=== PATIENT | female | born 1950 | race Caucasian/White ===

== ENCOUNTER 2022-08-13 08:58 | Observation (INO) | payer OTHER ==
[2022-08-12 13:18] LABS: Absolute Lymphocytes (CBC) 1.8 K/uL (0.7-4.9); Hematocrit 34.4 % (36.0-45.0); Lymphocytes % 41.3 % (15.3-44.8); MCV 109.8 fL (80-100); RBC Red Blood Cell Count 3.13 M/uL (3.86-4.86)
[2022-08-12 13:23] LABS: Specific Gravity 1.014 (1.005-1.030); Urine Bacteria None Seen /HPF (<20); Urine Bilirubin NEGATIVE (Negative); Urine Blood Negative (Negative); Urine Clarity Clear (Clear); Urine Color Light-Yellow (Yellow); Urine Glucose NEGATIVE (Negative); Urine Protein NEGATIVE (Negative); Urine RBC <5 /HPF (None Seen); Urine Urobilinogen Normal (Normal); Urine pH 6.5 (5.0-7.0)
[2022-08-12 13:30] LABS: Protime INR 0.94
[2022-08-12 13:32] LABS: Potassium 3.7 mEq/L (3.5-5.1)
[2022-08-12 13:33] LABS: SARS-CoV-2 Antigen Rapid Res Negative (Negative)
[2022-08-12 16:33] LABS: White Blood Cell Scan OK (OK)
[2022-08-12 16:34] LABS: Blood Morphology Comment NOTED (NOT SEEN); Macrocytosis 1+; Platelet Estimate ADEQ
[2022-08-13] MEDS ORDERED: Ringers Lactate 1,000 ML IV ONE (09:19)
[2022-08-13] MEDS: CEFAZOLIN SODIUM 2 GM/VIAL ONE ×2 (10:09→11:20)
[2022-08-13] MEDS ORDERED: CEFAZOLIN SODIUM 1 GM/VIAL ONE (10:19)
[2022-08-13] MEDS ORDERED: LIDOCAINE 1% W/EPI 1:100,000 50 ML MDV ONE (10:19)
[2022-08-13] MEDS ORDERED: NA CHLORIDE 0.9% 100 ML ONE (10:19)
[2022-08-13] MEDS ORDERED: LIDOCAINE 2% MPF 5 ML VIAL ONE (10:32)
[2022-08-13] MEDS ORDERED: propofoL 200 MG/20 ML VIAL IV ONE (10:32)
[2022-08-13] MEDS ORDERED: FENTANYL CITR 100 MCG/2 ML ONE ×3 (10:32→15:22)
[2022-08-13] MEDS ORDERED: MIDAZOLAM HCL 2 MG/2 ML INJ ONE (10:33)
[2022-08-13] MEDS ORDERED: ROCURONIUM 50 MG/5 ML VIAL IV ONE (10:33)
[2022-08-13] MEDS ORDERED: ONDANSETRON 4 MG/2 ML VIAL ONE ×2 (10:33→14:38)
[2022-08-13] MEDS: VASOPRESSIN 20 UNIT/ML VIAL ONE ×2 (10:57→12:30)
[2022-08-13] MEDS ORDERED: GLYCOPYRROLATE 0.2 MG/ML SYR ONE (11:39)
--- NOTE | 2022-08-13 12:12 | EKG ---
Test Date: 2022-08-13 Test Time: 11:03:36 Mail Clerk: MARYCARMEN MEASUREMENT RESULTS: Intervals: Rate: 63 KS: 176 QRSD: 80 QT: 438 QTc: 448 [place]: P: 53 KS: 176 QRS: 2 T: 28 INTERPRETIVE STATEMENTS: Normal sinus rhythm Normal ECG Compared to ECG 09/14/2014 15:46:26 Left ventricular hypertrophy no longer present Electronically Signed On 08-13-22 12:12:24 CDT by Ariel Peterson
[2022-08-13] MEDS ORDERED: dexAMETHasone 10 MG/ML VIAL ONE (12:22)
[2022-08-13] MEDS: Ringers Lactate 1,000 ML IV ONE ×2 (12:32→13:03)
[2022-08-13] MEDS ORDERED: ACYCLOVIR 400 MG TABLET PO PRN (14:56)
[2022-08-13] MEDS ORDERED: HOME MED 1 EA UNK (Tizanidine Hcl [Zanaflex] 2 MG Capsule) PO PRN (14:56)
[2022-08-13] MEDS ORDERED: PROMETHAZINE INJ 25 MG/ML AMP IV PRN (15:00)
[2022-08-13] MEDS ORDERED: ACETAMINOPHEN 500 MG TAB PO PRN (15:00)
[2022-08-13] MEDS ORDERED: ONDANSETRON 4 MG/2 ML VIAL IV PRN (15:00)
[2022-08-13] MEDS ORDERED: DIFLUPREDNATE OPHTHALMIC 5 ML BOT EACH EYE SCH (15:00)
--- NOTE | 2022-08-13 15:16 | P.BOP ---
Preoperative diagnosis: recurrent POP, ROBER Postoperative diagnosis: stg3 anterior wall/enterocele/apical wall prolapse,perineal body defect,ROBER Primary procedure: B/L SSLFcolpopexy,Ant wall,enterocele repairs w/biolog graft Secondary procedure: perineal body defect repairw/ seperate incision, TO-MUS, cysto Rn Clinical Trials: Alyssa Brantley Estimated blood loss: 100 Specimen: none Findings: +1/+4/0/6.5/th/8/-3/-3/na,cysto neg Anesthesia: General Complications: None Implants: coloplast 12x8 graft fashioned to 9x6x5 Fluids & blood products: UO 500 Transferred to: Recovery Room Condition: Good
--- OUTSIDE RECORDS SUMMARY | 2022-08-13 15:28 | XMS REPORT | Continuity of Care Document ---
:1950 Author Organization [facility] t Address [address] [place] [address] [address] [place] [address] Care Team Providers Name Role Phone Alonso Carrillo MD Primary Care Physician [phone] Daxa CORMIER Attending Clinician Unavailable BIANCA RODRIGUEZ Attending Clinician Unavailable AMELIA ALMANZA Attending Clinician Unavailable ANDRIA SALINAS Attending Clinician Unavailable Andria Salinas Attending Clinician [phone] ANDRIA SALINAS Attending Clinician Unavailable Andria Salinas MD Attending Clinician HAILY BORDEN Attending Clinician Unavailable JONATHON WATERS Attending Clinician Unavailable Rod Willis DPM Attending Clinician Josie Wood MD Attending Clinician Haily Borden MD Attending Clinician Aiden Hartley MD Attending Clinician RATNA MAYFIELD Attending Clinician Unavailable Manuela Engle MD Attending Clinician BIANCA RODRIGUEZ Admitting Clinician Unavailable Payers Payer Name Policy Type Policy Number Effective Date Expiration Date S anabell [employer] MEDICARE [id number] 2016 HMO POS PPO 00:00:00 MEDICARE A B [id number] 2014 2019 00:00:00 00:00:00 MEDICARE PLAN PPO [id number] AETNA MEDICARE PART A [id number] 2016 \\T\\ B - MEDICARE 00:00:00 GENERIC PPO - [id number] GENERIC PAYOR Problems Condition Condition Condition Status Onset Resolution Last Treating Co mments Source Name Details Category Date Date Treatment Clinician Date 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 10/2019 xray c-spine Telangiect Telangiect Disease Recurre [facility] asia nce 7-23 College 00:00: of 00 Medicin e Telangiect Telangiect Disease Active B [facility] asias 7-23 College 00:00: of 00 Medicin e Leg cramps Leg cramps Disease Active Michelle [facility] 7-23 College 00:00: of 00 Medicin e Adverse Adverse Disease Active [facility] effect of effect of 4-10 [facility] statin statin 00:00: of 00 Medicin e Prediabete Prediabete Disease Active [facility] s s 4-08 College 00:00: of 00 Medicin e History of History of Disease Active Michelle vallecillo uveitis uveitis 4-06 College 00:00: of 00 Medicin e Estrogen Estrogen Disease Active [facility] deficiency deficiency 3-29 Co llege 00:00: of 00 Medicin e Closed Closed Disease Active [facility] displaced displaced 1-13 [facility] fracture fracture 00:00: Medica l of of 00 Center proximal proximal phalanx of phalanx of left left little little finger finger Broken Broken Disease Active [facility] ulna ulna 1-13 [facility] Broken Broken Disease Active [facility] wrist, wrist, 1-13 [facility] left, left, 00:00: Medical closed, closed, 00 Center initial initial encounter encounter Ulnar Ulnar Disease Active [facility] shaft shaft 1 [place] fracture fracture 00:00: of 00 Medicin e Wrist Wrist Disease Active [facility] fracture, fracture, 06-01 [facility] left left 00:00: of 00 Medicin e Wrist Wrist Disease Active [facility] fracture, fracture, 06-01 [facility] left left 00:00: of 00 Medicin e 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 7-28 [place] uncertain uncertain 00:00: of behavior behavior 00 Medici n of skin of skin e Temperatur Temperatur Disease Active [facility]yl[facility] e e 414 [place] intoleranc intoleranc 00:00: of e e 00 Medicin e Snoring Snoring Disease Active [facility] 4-14 [place] 00:00: of 00 Medicin e Bilateral Bilateral Disease Active [facility] senile senile 2-26 [place] cataracts cataracts 00:00: of 00 Medicin e Acute Acute Disease Active 2013-05 [facility] anterior anterior 124 Colleg e uveitis uveitis 00:00: of 00 Medicin e Chronic Chronic Disease Active 2013-05 [facility] anterior anterior 111 Colleg e uveitis of uveitis of 00:00: of both eyes both eyes 00 Medi mildais e Chronic Chronic Disease Active 2013-05 [facility] anterior anterior 1 Colleg e uveitis of uveitis of 00:00: of both eyes both eyes 00 Medi miladis e 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 3-18 Co llege 00:00: of 00 Medicin e Medication Medication Disease [facility] side side 3-07 College effects:Li effects:Li 00:00: of pitor,stat pitor,stat 00 Me dicin ins ins e HTN HTN Disease Active [facility] (hypertens (hypertens 07-28 Co llege ion) ion) 00:00: of 00 Medicin e 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 07-28 Co llege emia, high emia, high 00:00: of LDL LDL 00 Medicin e Medication Medication Disease Active [facility] side side 07-28 [place] effects:Li effects:Li 00:00: of pitor,stat pitor,stat 00 Me dicin ins ins e Osteoarthr Osteoarthr Disease Active [facility] itis itis 07-28 [place] 00:00: of 00 Medicin e Migraines Migraines Disease Active [facility] 07-28 [place] 00:00: of 00 Medicin e Allergic Allergic Disease Active [facility] rhinitis, rhinitis, 07-28 [facility] cause cause 00:00: of unspecifie unspecifie 00 Me dicin d d e Unspecifie Unspecifie Disease Active Michelle vallecillo d d 07-28 [place] constipati constipati 00:00: of on on 00 Medicin e Status Status Disease Active [facility] post post 07 [place] hysterecto hysterecto 00:00: of my my 00 Medicin e [id number] 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 [id number] Fibromyalg Problem Co mmon ia [facility] [id number] Primary Problem Common hypertensi Spirit on [facility] [id number] Behcet's Problem Comm on disease [facility] [id number] Female Problem Common bladder Spirit prolapse - [facility] [id number] Hyperchole Problem Com mon sterolemia [facility] [id number] Symptomati Problem Co mmon c spider Spirit varicose - [facility] vein [facility] Eczema Eczema Disease Active [facility] of Medicin e Allergies, Adverse Reactions, Alerts Allergy Allergy Status Severity Reaction(s) Onset Inactive Treating Comm ents Source Name Type Date Date Clinician Cheli Atkinson Active Other (See [facility] ty to Comments) 11 College adverse 00:00: of reaction 00 Medicin s to e drug Rodeo Propensi Active Anaphylaxis [facility] Nut ty to 08-14 College (Berthol adverse 00:00: of lefia reaction Medicin Excelsa) s to e Skin drug Test Meloxica Propensi Active [facility] m ty to 212 College adverse 00:00: of reaction 00 Medicin s to e drug Other Propensi Active Nausea And Can't [facility] ty to Vomiting 06-01 take ANY [facility] adverse 00:00: Pain Medical reaction 00 medicatio Cente r s ns (except tylenol) - Severe Vomitting to point of dehydrati on. CHOCOLAT Allergy Active Other [facility] E FLAVOR 06-01 00:00: 00 OTHER Allergy Active Med N\\T\\V [facility] 06-01 00:00: 00 Nsaids Propensi Active vomiting [facility] ty to 02-07 [place] adverse 00:00: of reaction 00 Medicin s to e drug Statins Propensi Active [facility] ty to 02-07 [place] adverse 00:00: of reaction 00 Medicin s to e drug Chocolat Propensi Active migraine [facility] ty to 02-07 [place] adverse 00:00: of reaction 00 Medicin s to e food Chocolat Drug Active Other (See Migraines [facility] e Flavor Allergy Comments) 02-07 [facility] 00:[facility]: Medical 00 Center Nsaids Drug Active Diarrhea vomiting [facility] (Non-Jimy Allergy 02-07 [facility] roidal 00:00: Medical Anti-Inf 00 Center lammator y Drug) CHOCOLAT Allergy Active Med Other [facility] E FLAVOR 02-07 [facility] 00:[facility]: Medical 00 Center NSAIDS Allergy Active Med Diarrhea [facility] (NON-JIMY 02-07 [facility] ROIDAL 00:00: Medical ANTI-INF 00 Center LAMMATOR Y DRUG) Aidee Pain Propensi Active Hives Any pain [facility] Relief ty to 07-28 [facility] adverse 00:00: ns of reaction 00 Medicin s to e drug Acetamin Propensi Active Hives Any pain [facility] [place] adverse 00:00: ns of reaction 00 Medicin s to e drug Atorvast Propensi Active Hand and [facility] atin ty to 3-07 feet College Calcium adverse 00:00: turned of reaction 00 purple, Medicin s to hair e drug loss. Atorvast Drug Active Hand and [facility] atin Allergy 3-07 feet [facility] Calcium 00:00: turned Medical 00 purple, Center hair loss. Statins- Drug Active [facility] Allergy 07-28 [facility] and [facility] Reductas 00:00: feet Medical e 00 turned Center Inhibito purple, rs hair loss.Rayn aud's ATORVAST Allergy Active Med [facility] ATIN 3-07 [facility] CALCIUM 00:00: Medical 00 Center STATINS- Allergy Active Med [facility]G-COA 3-07 [facility] REDUCTAS 00:00: Medical E 00 Center INHIBITO RS Social History Social Habit Start Date Stop Date Quantity Comments Source History of Tobacco Common Spirit - Use [facility] Exposure to Not sure [facility] Roxanne e SARS-CoV-2 (event) of Med icine History SDOH [facility] Alcohol Frequency Medical Center History SDOH [facility] Alcohol Std Drinks Medica Center History SDOH [facility] Alcohol Binge Medical Kelvin ter Tobacco Comment 2022-02-16 2022-02-16 Quit 30 ys ago [facility] 00:00:00 00:00:00 (updated 07/2011) of Medic ine Tobacco use and 2022-02-16 2022-02-[address] [facility] exposure 00:00:00 00:00:00 non-user of Medicine Alcohol intake 2020-03-25 2020-03-25 Current drinker of [facility] 00:00:00 00:00:00 alcohol (finding) Medical Center Cigarettes smoked 2020-03-22 2020-03-[address] [facility] current (pack per 00:00:00 00:00:00 Medical Center day) - Reported Cigarette 2020-03-22 2020-03-[address] [facility] pack-years 00:00:00 00:00:00 [facility] Alcohol Comment 2020-03-22 2020-03-[address] [facility] kes 00:00:00 00:00:00 Medical Center Sex Ass[birth year] At [birth year] Cely Correia 00:00:00 00:00:00 Medical Center Smoking Status Start Date Stop Date Source Ex-smoker 2022-02-16 00:00:00 2022-02-16 00:00:00 [facility] Tali rodriguez of Medicine Medications Ordered Filled Start Stop Current Ordering Indication Dosage Frequency Signature Comments Components Source Medication Medication Date Date Medication? Clinician (SIG) Name Name Glucosamine Yes Take by [facility] HCl 1000 MG -23 mouth. Roxanneg e TABS 10:31: of 28 Medicin e Chondroitin Yes Take by [facility] Sulfate A - mouth. [place] (CHONDROITI 10:31: of N SULFATE 28 Medicin OR) e Coenzyme Yes Take by [facility] Q10 (CO Q - mouth. [place] 10) 100 MG 10:31: of CAPS 28 Medicin e Capsicum, Yes Take by [facility] [place], - mouth. [place] (CAYENNE 10:31: of OR) 28 Medicin e Cholecalcif Yes Take by [facility] rolanda - mouth. [place] (VITAMIN 10:31: of D-3 OR) 28 Medicin e Bakari, Yes Take by [facility] Zingiber -23 mouth. [place] officinalis 10:31: of , (BAKARI 28 Medicin ROOT OR) e SENNA OR 0 Yes Take by [facility] -23 mouth. [place] 10:31: of 28 Medicin e GRAPE SEED Yes Take by [facility] EXTRACT OR -23 mouth. [place] 10:31: of 28 Medicin e HAWTHORN OR 0 Yes Take by [facility] -23 mouth. [place] 10:31: of 28 Medicin e ALFALFA OR 0 Yes Take by [facility] 1-23 mouth. [place] 10:31: of 28 Medicin e APPLE CIDER 2022-0 Yes Take by [facility] VINEGAR OR 1-23 mouth. [place] 10:31: of 28 Medicin e BIOTIN OR 0 Yes Take by [facility] -23 mouth. [place] 10:31: of 28 Medicin e VITAMIN D 2022-0 Yes Take by [facility] OR -23 mouth. [place] 10:31: of 28 Medicin e Potassium 2023-0 Yes 2{tbl} Take 2 [facility] Gluconate -23 Tablets by [facility] 2.5 MEQ 10:31: mouth. of TABS 28 Medicin e prednisoLON 2022- No daily. [facility] E acetate 06-15 [place] 0.125 % 10:31: 00:00 of ophthalmic 00 :00 Medicin suspension e ketorolac 0 2022- No 1[drp] 1 Drop [facility] (ACULAR) 06-15 four times [facility] 0.5 % 10:30: 00:00 daily. of ophthalmic 54 :00 Medicin solution e azathioprin Yes [id number] 150mg Take 3 [facility] e (IMURAN) - 9106 Tablets by Col lege 50 MG 00:00: mouth of tablet 00 daily. Medicin e tizanidine Yes [id number] TAKE 1 [facility] (ZANAFLEX) 1-23 TABLET BY [facility] 2 MG tablet 00:00: MOUTH AT of 00 BEDTIME Medicin e clonidine 2021-05 Yes TAKE 1 [facility] (CATAPRES) 1-16 TABLET BY [facility] 0.1 MG 00:00: MOUTH of tablet 00 EVERY DAY Medicin FOR 90 e DAYS Glucosamine Yes Take by [facility] HCl 1000 MG 02-16 mouth. Colleg e TABS 09:22: of 22 Medicin e Chondroitin Yes Take by [facility] Sulfate A 02-16 mouth. [place] (CHONDROITI 09:22: of N SULFATE 22 Medicin OR) e Coenzyme Yes Take by [facility] Q10 (CO Q 02-16 mouth. College 10) 100 MG 09:22: of CAPS 22 Medicin e Capsicum, Yes Take by [facility] [place], 02-16 mouth. [place] (CAYENNE 09:22: of OR) 22 Medicin e Cholecalcif Yes Take by [facility] rolanda 02-16 mouth. [place] (VITAMIN 09:22: of D-3 OR) 22 Medicin e Bakari, Yes Take by [facility] Zingiber 02-16 mouth. College officinalis 09:22: of , (BAKARI 22 Medicin ROOT OR) e SENNA OR Yes Take by [facility] 02-16 mouth. College 09:22: of 22 Medicin e GRAPE SEED Yes Take by [facility] EXTRACT OR - mouth. College 09:22: of 22 Medicin e HAWTHORN OR Yes Take by [facility] -26 mouth. College 09:22: of 22 Medicin e ALFALFA OR Yes Take by [facility] 9-26 mouth. College 09:22: of 22 Medicin e APPLE CIDER Yes Take by [facility] VINEGAR OR 02-16 mouth. College 09:22: of 22 Medicin e BIOTIN OR Yes Take by [facility] - mouth. [place] 09:22: of 22 Medicin e VITAMIN D Yes Take by [facility] OR 02-16 mouth. [place] 09:22: of 22 Medicin e Potassium Yes 2{tbl} Take 2 [facility] Gluconate 02-16 Tablets by [facility] 2.5 MEQ 09:22: mouth. of TABS 22 Medicin e tizanidine Yes [id number] TAKE 1 [facility] (ZANAFLEX) 02-16 TABLET BY [facility] 2 MG tablet 00:00: MOUTH AT of 00 BEDTIME Medicin e tizanidine 0 2022- No [id number] TAKE 1 [facility] (ZANAFLEX) -06-15 TABLET BY Col [facility]ge 2 MG tablet 00:00: 00:00 MOUTH AT o f 00 :00 BEDTIME Medicin e azathioprin Yes [id number] 150mg Take 3 [facility] e (IMURAN) 02-05 9106 Tablets by Col [facility]ge 50 MG 00:00: mouth of tablet 00 daily. Medicin e azathioprin 0 2022- No [id number] 150mg Take 3 [facility] e (IMURAN) -06-15 9106 Tablets by Co llege 50 MG 00:00: 00:00 mouth of tablet 00 :00 daily. Medicin e valsartan-h Yes [facility] ydrochlorot 9-14 College hiazide 00:00: of (DIOVAN-HCT 00 Medicin ) 320-25 MG e per tablet Cipro 500 Cipro 500 0 2- No 1{table BID Cipro 500 MG MG 6-17 11-12 t} MG 00:00: 00:00 00 :00 tizanidine 0 2021- No [id number] TAKE 1 [facility] (ZANAFLEX) 5-20 02-16 TABLET BY Col [facility]ge 2 MG tablet 00:00: 00:00 MOUTH AT o f 00 :00 BEDTIME Medicin e Glucosamine Yes Take by [facility] HCl 1000 MG 07-22 mouth. Colleg e TABS 14:25: of 57 Medicin e Chondroitin Yes Take by [facility] Sulfate A 07-22 mouth. [place] (CHONDROITI 14:25: of N SULFATE 57 Medicin OR) e Coenzyme Yes Take by [facility] Q10 (CO Q 07-22 mouth. [place] 10) 100 MG 14:25: of CAPS 57 Medicin e Capsicum, Yes Take by [facility] [place], 07-22 mouth. [place] (CAYENNE 14:25: of OR) 57 Medicin e Cholecalcif Yes Take by [facility] rolanda 07-22 mouth. [place] (VITAMIN 14:25: of D-3 OR) 57 Medicin e Bakari, Yes Take by [facility] Zingiber 07-22 mouth. [place] officinalis 14:25: of , (BAKARI 57 Medicin ROOT OR) e SENNA OR Yes Take by [facility] 07-22 mouth. [place] 14:25: of 57 Medicin e GRAPE SEED Yes Take by [facility] EXTRACT OR 07-22 mouth. [place] 14:25: of 57 Medicin e HAWTHORN OR Yes Take by [facility] 07-22 mouth. [place] 14:25: of 57 Medicin e ketorolac Yes 1[drp] 1 Drop [facility] (ACULAR) 07-22 four times [facility] ge 0.5 % 14:25: daily. of ophthalmic 57 Medicin solution e prednisoLON Yes daily. [facility] E acetate 07-22 [place] 0.125 % 14:25: of ophthalmic 57 Medicin suspension e ALFALFA OR Yes Take by [facility] 07-22 mouth. [place] 14:25: of 57 Medicin e APPLE CIDER Yes Take by [facility] VINEGAR OR 07-22 mouth. [place] 14:25: of 57 Medicin e BIOTIN OR Yes Take by [facility] 07-22 mouth. [place] 14:25: of 57 Medicin e VITAMIN D Yes Take by [facility] OR 07-22 mouth. [place] 14:25: of 57 Medicin e Potassium Yes 2{tbl} Take 2 [facility] Gluconate 07-22 Tablets by [facility] 2.5 MEQ 14:25: mouth. of TABS 57 Medicin e Glucosamine Yes Take by [facility] HCl 1000 MG 07-22 mouth. Colleg e TABS 14:25: of 57 Medicin e Chondroitin Yes Take by [facility] Sulfate A 07-22 mouth. [place] (CHONDROITI 14:25: of N SULFATE 57 Medicin OR) e Coenzyme Yes Take by [facility] Q10 (CO Q 07-22 mouth. College 10) 100 MG 14:25: of CAPS 57 Medicin e Capsicum, Yes Take by [facility] r [place], 07-22 mouth. [place] (CAYENNE 14:25: of OR) 57 Medicin e Cholecalcif Yes Take by [facility] rolanda 07-22 mouth. [place] (VITAMIN 14:25: of D-3 OR) 57 Medicin e Bakari, Yes Take by [facility] Zingiber 07-22 mouth. [place] officinalis 14:25: of , (BAKARI 57 Medicin ROOT OR) e SENNA OR Yes Take by [facility] 07-22 mouth. [place] 14:25: of 57 Medicin e GRAPE SEED Yes Take by [facility] EXTRACT OR 07-22 mouth. [place] 14:25: of 57 Medicin e HAWTHORN OR Yes Take by [facility] 07-22 mouth. [place] 14:25: of 57 Medicin e ketorolac Yes 1[drp] 1 Drop [facility] (ACULAR) 07-22 four times Colle ge 0.5 % 14:25: daily. of ophthalmic 57 Medicin solution e prednisoLON Yes daily. [facility] E acetate 07-22 [place] 0.125 % 14:25: of ophthalmic 57 Medicin suspension e ALFALFA OR Yes Take by [facility] 3- mouth. [place] 14:25: of 57 Medicin e APPLE CIDER Yes Take by [facility] VINEGAR OR 07-22 mouth. [place] 14:25: of 57 Medicin e BIOTIN OR Yes Take by [facility] 07-22 mouth. [place] 14:25: of 57 Medicin e VITAMIN D Yes Take by [facility] OR 07-22 mouth. [place] 14:25: of 57 Medicin e Potassium Yes 2{tbl} Take 2 [facility] Gluconate 07-22 Tablets by [facility] egkarina 2.5 MEQ 14:25: mouth. of TABS 57 Medicin e Glucosamine Yes Take by [facility] HCl 1000 MG 07-22 mouth. Colleg e TABS 14:25: of 57 Medicin e Chondroitin Yes Take by [facility] Sulfate A 07-22 mouth. [place] (CHONDROITI 14:25: of N SULFATE 57 Medicin OR) e Coenzyme Yes Take by [facility] Q10 (CO Q 07-22 mouth. College 10) 100 MG 14:25: of CAPS 57 Medicin e Capsicum, Yes Take by [facility] [place], 07-22 mouth. [place] (CAYENNE 14:25: of OR) 57 Medicin e Cholecalcif Yes Take by [facility] rolanda 07-22 mouth. [place] (VITAMIN 14:25: of D-3 OR) 57 Medicin e Bakari, Yes Take by [facility] Zingiber 07-22 mouth. [place] officinalis 14:25: of , (BAKARI 57 Medicin ROOT OR) e SENNA OR Yes Take by [facility] 07-22 mouth. [place] 14:25: of 57 Medicin e GRAPE SEED Yes Take by [facility] EXTRACT OR 07-22 mouth. [place] 14:25: of 57 Medicin e HAWTHORN OR Yes Take by [facility] 07-22 mouth. [place] 14:25: of 57 Medicin e ketorolac Yes 1[drp] 1 Drop [facility] (ACULAR) 07-22 four times Colle ge 0.5 % 14:25: daily. of ophthalmic 57 Medicin solution e prednisoLON 2022-0 Yes daily. [facility] E acetate 07-22 [place] 0.125 % 14:25: of ophthalmic 57 Medicin suspension e ALFALFA OR Yes Take by [facility] 3-01 mouth. College 14:25: of 57 Medicin e APPLE CIDER Yes Take by [facility] VINEGAR OR 3- mouth. College 14:25: of 57 Medicin e BIOTIN OR Yes Take by [facility] 3- mouth. College 14:25: of 57 Medicin e VITAMIN D Yes Take by [facility] OR 3- mouth. College 14:25: of 57 Medicin e Potassium Yes 2{tbl} Take 2 [facility] Gluconate 3- Tablets by [facility] 2.5 MEQ 14:25: mouth. of TABS 57 Medicin e ketorolac Yes 1[drp] 1 Drop [facility] (ACULAR) - four times [facility] 0.5 % 14:25: daily. of ophthalmic 57 Medicin solution e prednisoLON Yes daily. [facility] E acetate 07-22 [place] 0.125 % 14:25: of ophthalmic 57 Medicin suspension e azathioprin Yes [id number] 150mg Take 3 [facility] e (IMURAN) 3- 9106 Tablets by Col [facility]ge 50 MG 00:00: mouth of tablet 00 daily. Medicin e colchicine 2021-0 Yes [id number] .6mg Take 1 [facility] 0.6 MG 3-01 Tablet by [place] tablet 00:00: mouth of 00 daily. Medicin e azathioprin 2021-0 Yes [id number] 150mg Take 3 [facility] e (IMURAN) 3- 9106 Tablets by Col [facility]ge 50 MG 00:00: mouth of tablet 00 daily. Medicin e colchicine 2021-0 Yes [id number] .6mg Take 1 [facility] 0.6 MG 3-01 Tablet by [place] tablet 00:00: mouth of 00 daily. Medicin e azathioprin 2021-0 Yes [id number] 150mg Take 3 [facility] e (IMURAN) 3- 9106 Tablets by Col [facility] 50 MG 00:00: mouth of tablet 00 daily. Medicin e colchicine 2021-0 Yes [id number] .6mg Take 1 [facility] 0.6 MG 3-01 Tablet by [place] tablet 00:00: mouth of 00 daily. Medicin e colchicine 2021-0 Yes [id number] .6mg Take 1 [facility] 0.6 MG 3-01 Tablet by [place] tablet 00:00: mouth of 00 daily. Medicin e colchicine 2021-0 3- No [id number] .6mg Take 1 [facility] 0.6 MG 3-01 - Tablet by [place] tablet 00:00: 00:00 mouth of 00 :00 daily. Medicin e Glucosamine 0 Yes Take by [facility] HCl 1000 MG -24 mouth. Colleg e TABS 12:01: of 39 Medicin e Chondroitin Yes Take by [facility] Sulfate A -24 mouth. [place] (CHONDROITI 12:01: of N SULFATE 39 Medicin OR) e Coenzyme Yes Take by [facility] Q10 (CO Q 06-16 mouth. [place] 10) 100 MG 12:01: of CAPS 39 Medicin e Capsicum, Yes Take by [facility] [place], 06-16 mouth. [place] (CAYENNE 12:01: of OR) 39 Medicin e Cholecalcif Yes Take by [facility] rolanda 24 mouth. [place] (VITAMIN 12:01: of D-3 OR) 39 Medicin e Bakari, Yes Take by [facility] Zingiber 24 mouth. [place] officinalis 12:01: of , (BAKARI 39 Medicin ROOT OR) e SENNA OR Yes Take by [facility] -24 mouth. [place] 12:01: of 39 Medicin e GRAPE SEED Yes Take by [facility] EXTRACT OR 06-16 mouth. [place] 12:01: of 39 Medicin e HAWTHORN OR 0 Yes Take by [facility] 24 mouth. [place] 12:01: of 39 Medicin e ketorolac 0 Yes 1[drp] 1 Drop [facility] (ACULAR) 06-16 four times [facility] 0.5 % 12:01: daily. of ophthalmic 39 Medicin solution e prednisoLON 0 Yes daily. [facility] E acetate 06-16 [place] 0.125 % 12:01: of ophthalmic 39 Medicin suspension e ALFALFA OR 2022-0 Yes Take by [facility] 1-24 mouth. [place] 12:01: of 39 Medicin e APPLE CIDER Yes Take by [facility] VINEGAR OR 1-24 mouth. [place] 12:01: of 39 Medicin e BIOTIN OR Yes Take by [facility] 1-24 mouth. [place] 12:01: of 39 Medicin e VITAMIN D Yes Take by [facility] OR 1-24 mouth. [place] 12:01: of 39 Medicin e Potassium Yes 2{tbl} Take 2 [facility] Gluconate -24 Tablets by [facility] egkarina 2.5 MEQ 12:01: mouth. of TABS 39 Medicin e Glucosamine 2020-05 Yes Take by [facility] HCl 1000 MG 1-30 mouth. Colleg e TABS 13:25: of 43 Medicin e Chondroitin 2020-05 Yes Take by [facility] Sulfate A -30 mouth. [place] (CHONDROITI 13:25: of N SULFATE 43 Medicin OR) e Coenzyme 2020-05 Yes Take by [facility] Q10 (CO Q -30 mouth. College 10) 100 MG 13:25: of CAPS 43 Medicin e Capsicum, 2020-05 Yes Take by [facility] [place], 1-30 mouth. [place] (CAYENNE 13:25: of OR) 43 Medicin e Cholecalcif 2020-05 Yes Take by [facility] rolanda -30 mouth. [place] (VITAMIN 13:25: of D-3 OR) 43 Medicin e Bakari, 2020-05 Yes Take by [facility] Zingiber -30 mouth. [place] officinalis 13:25: of , (BAKARI 43 Medicin ROOT OR) e SENNA OR 2020-05 Yes Take by [facility] 1-30 mouth. [place] 13:25: of 43 Medicin e GRAPE SEED 2020-05 Yes Take by [facility] EXTRACT OR 1-30 mouth. [place] 13:25: of 43 Medicin e HAWTHORN OR 2020-05 Yes Take by [facility] -30 mouth. [place] 13:25: of 43 Medicin e ketorolac 2020-05 Yes 1[drp] 1 Drop [facility] (ACULAR) 1-30 four times [facility] 0.5 % 13:25: daily. of ophthalmic 43 Medicin solution e prednisoLON 2020-05 Yes daily. [facility] E acetate 1-30 [facility] 0.125 % 13:25: of ophthalmic 43 Medicin suspension e ALFALFA OR 2020-05 Yes Take by [facility] 1-30 mouth. [facility] 13:25: of 43 Medicin e APPLE CIDER 2020-05 Yes Take by [facility] VINEGAR OR 1-30 mouth. [facility] 13:25: of 43 Medicin e BIOTIN OR 2020-05 Yes Take by [facility] 1-30 mouth. [facility] 13:25: of 43 Medicin e VITAMIN D 2020-05 Yes Take by [facility] [place] 1-30 mouth. [facility] 13:25: of 43 Medicin e Potassium 2020-05 Yes 2{tbl} Take 2 [facility] Gluconate 1-30 Tablets by [facility] ege 2.5 MEQ 13:25: mouth. of TABS 43 Medicin e colchicine 2020-05 Yes [id number] .6mg Take 1 [facility] 0.6 MG 1-30 Tablet by [facility] tablet 00:00: mouth of 00 daily. Medicin e azathioprin 2020-05 Yes [id number] 150mg Take 3 [facility] e (IMURAN) 1-30 9106 Tablets by [facility] 50 MG 00:00: mouth of tablet 00 daily. Medicin e colchicine 2020-05 Yes [id number] .6mg Take 1 [facility] 0.6 MG 1-30 Tablet by [place] tablet 00:00: mouth of 00 daily. Medicin e azathioprin 2020-05 Yes [id number] 150mg Take 3 [facility] e (IMURAN) 1-30 9106 Tablets by [facility] 50 MG 00:00: mouth of tablet 00 daily. Medicin e colchicine 2020-05- No [id number] .6mg Take 1 [facility] 0.6 MG 1-30 07-22 Tablet by [facility] tablet 00:00: 00:00 mouth of 00 :00 daily. Medicin e azathioprin 2020-05- No [id number] 150mg Take 3 [facility] e (IMURAN) 1-30 07-22 9106 Tablets by [facility] 50 MG 00:00: 00:00 mouth of tablet 00 :00 daily. Medicin e Glucosamine Yes Take by [facility] HCl 1000 MG 8-25 mouth. Colleg e TABS 14:32: of 20 Medicin e Chondroitin Yes Take by [facility] Sulfate A 8-25 mouth. [place] (CHONDROITI 14:32: of N SULFATE 20 Medicin OR) e Coenzyme Yes Take by [facility] Q10 (CO Q 8-25 mouth. College 10) 100 MG 14:32: of CAPS 20 Medicin e Capsicum, Yes Take by [facility] [place], 8-25 mouth. [place] (CAYENNE 14:32: of OR) 20 Medicin e Cholecalcif Yes Take by [facility] [place] 8-25 mouth. [place] (VITAMIN 14:32: of D-3 OR) 20 Medicin e Bakari, Yes Take by [facility] Zingiber 8-25 mouth. [place] officinalis 14:32: of , (BAKARI 20 Medicin ROOT OR) e SENNA OR Yes Take by [facility] 8-25 mouth. [place] 14:32: of 20 Medicin e HAWTHORN OR Yes Take by [facility] 8-25 mouth. [place] 14:32: of 20 Medicin e ketorolac Yes 1[drp] 1 Drop [facility] (ACULAR) 8-25 four times [facility] 0.5 % 14:32: daily. of ophthalmic 20 Medicin solution e prednisoLON Yes daily. [facility] E acetate 01-15 [place] 0.125 % 14:32: of ophthalmic 20 Medicin suspension e ALFALFA OR Yes Take by [facility] 8-25 mouth. [place] 14:32: of 20 Medicin e APPLE CIDER Yes Take by [facility] VINEGAR OR 8-25 mouth. [place] 14:32: of 20 Medicin e BIOTIN OR Yes Take by [facility] 8-25 mouth. [place] 14:32: of 20 Medicin e VITAMIN D Yes Take by [facility] [place] 8-25 mouth. [place] 14:32: of 20 Medicin e Potassium Yes 2{tbl} Take 2 [facility] Gluconate 8-25 Tablets by [facility] 2.5 MEQ 14:32: mouth. of TABS 20 Medicin e azathioprin Yes [id number] 150mg Take 3 [facility] e (IMURAN) 8-25 9106 Tablets by [facility] 50 MG 00:00: mouth of tablet 00 daily. Medicin e tizanidine 2020-0 Yes [id number] Take at [facility] (ZANAFLEX) 8 night College 2 MG tablet 00:00: of 00 Medicin e tizanidine 2020-0 Yes [id number] Take at [facility] (ZANAFLEX) 01-15 night [place] 2 MG tablet 00:00: of 00 Medicin e tizanidine 2020-0 Yes [id number] Take at [facility] (ZANAFLEX) 01-15 night [place] 2 MG tablet 00:00: of 00 Medicin e tizanidine 2020-0 Yes [id number] Take at [facility] (ZANAFLEX) 01-15 night [place] 2 MG tablet 00:00: of 00 Medicin e tizanidine 2020-0 Yes [id number] Take at [facility] (ZANAFLEX) 01-15 night [place] 2 MG tablet 00:00: of 00 Medicin e tizanidine 2020-0 Yes [id number] Take at [facility] (ZANAFLEX) 01-15 night [place] 2 MG tablet 00:00: of 00 Medicin e azathioprin 2020-0 2020- No [id number] 150mg Take 3 [facility] e (IMURAN) 01-15 11-30 9106 Tablets by [facility] 50 MG 00:00: 00:00 mouth of tablet 00 :00 daily. Medicin e NIFEdipine Yes 1{tbl} Take 1 [facility] (ADALAT CC) 8-23 Tablet by [facility] 30 MG CR 00:00: mouth of tablet 00 daily. Medicin e NIFEdipine Yes 1{tbl} Take 1 [facility] (ADALAT CC) 8-23 Tablet by [facility] 30 MG CR 00:00: mouth of tablet 00 daily. Medicin e NIFEdipine 2020-0 Yes 1{tbl} Take 1 [facility] (ADALAT CC) 8-23 Tablet by [facility] 30 MG CR 00:00: mouth of tablet 00 daily. Medicin e NIFEdipine 2020-0 Yes 1{tbl} Take 1 [facility] (ADALAT CC) 8-23 Tablet by [facility] 30 MG CR 00:00: mouth of tablet 00 daily. Medicin e NIFEdipine 0 Yes 1{tbl} Take 1 [facility] (ADALAT CC) 8-23 Tablet by [facility] 30 MG CR 00:00: mouth of tablet 00 daily. Medicin e NIFEdipine 0 Yes 1{tbl} Take 1 [facility] (ADALAT CC) 8-23 Tablet by [facility] 30 MG CR 00:00: mouth of tablet 00 daily. Medicin e NIFEdipine 2020-0 Yes 1{tbl} Take 1 [facility] (ADALAT CC) 8-23 Tablet by [facility] 30 MG CR 00:00: mouth of tablet 00 daily. Medicin e NIFEdipine 2020-0 Yes 1{tbl} Take 1 [facility] (ADALAT CC) 8-23 Tablet by [facility] 30 MG CR 00:00: mouth of tablet 00 daily. Medicin e GRAPE SEED Yes Take by [facility] EXTRACT OR 8-11 mouth. [place] 11:03: of 14 Medicin e Glucosamine Yes Take by [facility] HCl 1000 MG 7-13 mouth. Colleg e TABS 13:19: of 40 Medicin e Chondroitin Yes Take by [facility] Sulfate A 7-13 mouth. [place] (CHONDROITI 13:19: of N SULFATE 40 Medicin OR) e Coenzyme Yes Take by [facility] Q10 (CO Q 7-13 mouth. College 10) 100 MG 13:19: of CAPS 40 Medicin e Capsicum, Yes Take by [facility] [place], 7-13 mouth. [place] (CAYENNE 13:19: of OR) 40 Medicin e Cholecalcif Yes Take by [facility] [place] 7-13 mouth. [place] (VITAMIN 13:19: of D-3 OR) 40 Medicin e Bakari, Yes Take by [facility] Zingiber 7-13 mouth. [place] officinalis 13:19: of , (BAKARI 40 Medicin ROOT OR) e SENNA OR Yes Take by [facility] 7-13 mouth. [place] 13:19: of 40 Medicin e GRAPE SEED Yes Take by [facility] EXTRACT OR 7-13 mouth. [place] 13:19: of 40 Medicin e HAWTHORN OR Yes Take by [facility] 7-13 mouth. [place] 13:19: of 40 Medicin e ketorolac Yes 1[drp] 1 Drop [facility] (ACULAR) 12-03 four times [facility] 0.5 % 13:19: daily. of ophthalmic 40 Medicin solution e prednisoLON Yes daily. [facility] E acetate 12-03 [facility] 0.125 % 13:19: of ophthalmic 40 Medicin suspension e ALFALFA OR Yes Take by [facility] 7- mouth. [facility] 13:19: of 40 Medicin e APPLE CIDER Yes Take by [facility] VINEGAR OR - mouth. [facility] 13:19: of 40 Medicin e BIOTIN OR Yes Take by [facility] - mouth. [facility] 13:19: of 40 Medicin e VITAMIN D Yes Take by [facility] [place] 12-03 mouth. [facility] 13:19: of 40 Medicin e Potassium Yes 2{tbl} Take 2 [facility] Gluconate 12-03 Tablets by [place] [facility] 2.5 MEQ 13:19: mouth. of TABS 40 Medicin e ondansetron Yes DISSOLVE [facility] (ZOFRAN-ODT 7-10 IN MOUTH [facility] ) 4 mg 00:00: ONE TABLET of disintegrat 00 EVERY 4 Medic in ing tablet HOURS FOR e 5 DAYS NEEDED FOR NAUSEA AND VOMITING furosemide Yes [id number] 20mg Take 1 [facility] (LASIX) 20 6-21 Tablet by [place] [facility] MG tablet 00:00: mouth of 00 daily. Medicin (for blood e pressure and leg swelling) valsartan-h Yes [id number] 1{tbl} Take 1 [facility] ydrochlorot 6-21 Tablet by [facility] hiazide 00:00: mouth of (DIOVAN-HCT 00 daily. Medici n ) 320-12.5 (for blood e MG per pressure) tablet furosemide Yes [id number] 20mg Take 1 [facility] (LASIX) 20 6-21 Tablet by [facility] MG tablet 00:00: mouth of 00 daily. Medicin (for blood e pressure and leg swelling) valsartan-h Yes [id number] 1{tbl} Take 1 [facility] ydrochlorot 6-21 Tablet by [facility] hiazide 00:00: mouth of (DIOVAN-HCT 00 daily. Medici n ) 320-12.5 (for blood e MG per pressure) tablet furosemide 0 Yes [id number] 20mg Take 1 [facility] (LASIX) 20 6-21 Tablet by [facility] MG tablet 00:00: mouth of 00 daily. Medicin (for blood e pressure and leg swelling) valsartan-h 0 Yes [id number] 1{tbl} Take 1 [facility] ydrochlorot 6-21 Tablet by [facility] hiazide 00:00: mouth of (DIOVAN-HCT 00 daily. Medici n ) 320-12.5 (for blood e MG per pressure) tablet furosemide 0 Yes [id number] 20mg Take 1 [facility] (LASIX) 20 6-21 Tablet by [facility] MG tablet 00:00: mouth of 00 daily. Medicin (for blood e pressure and leg swelling) valsartan-h 0 Yes [id number] 1{tbl} Take 1 [facility] ydrochlorot 6-21 Tablet by [facility] hiazide 00:00: mouth of (DIOVAN-HCT 00 daily. Medici n ) 320-12.5 (for blood e MG per pressure) tablet furosemide 0 Yes [id number] 20mg Take 1 [facility] (LASIX) 20 6-21 Tablet by [facility] MG tablet 00:00: mouth of 00 daily. Medicin (for blood e pressure and leg swelling) valsartan-h 0 Yes [id number] 1{tbl} Take 1 [facility] ydrochlorot 6-21 Tablet by [facility] hiazide 00:00: mouth of (DIOVAN-HCT daily. Medici n ) 320-12.5 (for blood e MG per pressure) tablet furosemide 0 Yes [id number] 20mg Take 1 [facility] (LASIX) 20 6-21 Tablet by [facility] MG tablet 00:00: mouth of 00 daily. Medicin (for blood e pressure and leg swelling) valsartan-h 2020-0 Yes [id number] 1{tbl} Take 1 [facility] ydrochlorot 6-21 Tablet by [facility] hiazide 00:00: mouth of (DIOVAN-HCT 00 daily. Medici n ) 320-12.5 (for blood e MG per pressure) tablet furosemide 2021-0 Yes [id number] 20mg Take 1 [facility] (LASIX) 20 6-21 Tablet by [facility] MG tablet 00:00: mouth of 00 daily. Medicin (for blood e pressure and leg swelling) valsartan-h Yes [id number] 1{tbl} Take 1 [facility] ydrochlorot 6-21 Tablet by [facility] hiazide 00:00: mouth of (DIOVAN-HCT 00 daily. Medici n ) 320-12.5 (for blood e MG per pressure) tablet furosemide Yes [id number] 20mg Take 1 [facility] (LASIX) 20 6-21 Tablet by [facility] MG tablet 00:00: mouth of 00 daily. Medicin (for blood e pressure and leg swelling) valsartan-h Yes [id number] 1{tbl} Take 1 [facility] ydrochlorot 6-21 Tablet by [facility] hiazide 00:00: mouth of (DIOVAN-HCT 00 daily. Medici n ) 320-12.5 (for blood e MG per pressure) tablet furosemide Yes [id number] 20mg Take 1 [facility] (LASIX) 20 6-21 Tablet by [facility] MG tablet 00:00: mouth of 00 daily. Medicin (for blood e pressure and leg swelling) valsartan-h 2022- No [id number] 1{tbl} Take 1 [facility] ydrochlorot 6-21 - Tablet by [facility] hiazide 00:00: 00:00 mouth of (DIOVAN-HCT 00 :00 daily. Medici n ) 320-12.5 (for blood e MG per pressure) tablet amlodipine Yes TAKE 1 [facility] (NORVASC) 6-09 TABLET BY [facility] 10 MG 00:00: MOUTH of tablet 00 EVERY DAY Medicin e amlodipine Yes TAKE 1 [facility] (NORVASC) 6-09 TABLET BY [facility] 10 MG 00:00: MOUTH of tablet 00 EVERY DAY Medicin e amlodipine Yes TAKE 1 [facility] (NORVASC) 6-09 TABLET BY [facility] 10 MG 00:00: MOUTH of tablet 00 EVERY DAY Medicin e amlodipine Yes TAKE 1 [facility] (NORVASC) 6-09 TABLET BY [place] 10 MG 00:00: MOUTH of tablet 00 EVERY DAY Medicin e amlodipine 2021- No TAKE 1 [facility] (NORVASC) 10-30 TABLET BY [facility] 10 MG 00:00: 00:00 MOUTH of tablet 00 :00 EVERY DAY Medicin e doxycycline Yes [id number] TAKE 100MG [facility] (VIBRAMYCIN 10-28 [facility] ) 100 MG 00:00: DAILY WITH of capsule 00 FOOD AND Medicin FULL GLASS e OF WATER. REMAIN UPRIGHT FOR 1 HOUR AFTER TAKING. PROTECT YOURSELF FROM SUN. NOT TO BE USED IN . methylPREDN 2020- No [facility] ISolone 10-04 [place] acetate 19:30: 19:26 of (DEPO-MEDRO 00 :00 Medicin L) 40 MG/ML e 40 mg, lidocaine 1% (10 mg/mL) 2 mL methylPREDN 2020- No [facility] ISolone 10-04 [place] acetate 19:30: 19:26 of (DEPO-MEDRO 00 :00 Medicin L) 40 MG/ML e 40 mg, lidocaine 1% (10 mg/mL) 2 mL methylPREDN 2020- No Intra-lilia [facility] ISolone 10-04 [facility] acetate 19:30: 19:26 ONCE, 1 of (DEPO-MEDRO 00 :00 dose, On Medi miladis L) 40 MG/ML Fri e 40 mg, 10/04/20 at lidocaine 1430
Le 1% (10 ft mg/mL) 2 mL knee
methylPREDN 2020- No [id number] Intra-lilia [facility] ISolone 10-04 [facility] acetate 19:30: 19:26 ONCE, 1 of (DEPO-MEDRO 00 :00 dose, On Medi miladis L) 40 MG/ML Fri e 40 mg, 10/04/20 at lidocaine 1430
Ri 1% (10 ght mg/mL) 2 mL knee
VITAMIN D Yes Take by [facility] [place] 10-04 mouth. [place] 13:58: of 57 Medicin e Potassium 2021-0 Yes 2{tbl} Take 2 [facility] Gluconate 5-14 Tablets by [facility] 2.5 MEQ 13:58: mouth. of TABS 57 Medicin e Glucosamine 0 Yes Take by [facility] HCl 1000 MG 5-14 mouth. Colleg e TABS 13:58: of 57 Medicin e Chondroitin 0 Yes Take by [facility] Sulfate A 5-14 mouth. [place] (CHONDROITI 13:58: of N SULFATE 57 Medicin OR) e Coenzyme 0 Yes Take by [facility] Q10 (CO Q 5-14 mouth. College 10) 100 MG 13:58: of CAPS 57 Medicin e Capsicum, 0 Yes Take by [facility] [place], 5-14 mouth. [place] (CAYENNE 13:58: of OR) 57 Medicin e Cholecalcif Yes Take by [facility] [place] 5-14 mouth. [place] (VITAMIN 13:58: of D-3 OR) 57 Medicin e Bakari, Yes Take by [facility] Zingiber 5-14 mouth. [place] officinalis 13:58: of , (BAKARI 57 Medicin ROOT OR) e SENNA OR Yes Take by [facility] 5-14 mouth. [place] 13:58: of 57 Medicin e GRAPE SEED Yes Take by [facility] EXTRACT OR 5-14 mouth. [place] 13:58: of 57 Medicin e HAWTHORN OR Yes Take by [facility] 5-14 mouth. [place] 13:58: of 57 Medicin e ketorolac Yes 1[drp] 1 Drop [facility] (ACULAR) 5-14 four times [facility] 0.5 % 13:58: daily. of ophthalmic 57 Medicin solution e prednisoLON 0 Yes daily. [facility] E acetate 5-14 [place] 0.125 % 13:58: of ophthalmic 57 Medicin suspension e ALFALFA OR 0 Yes Take by [facility] 5-14 mouth. [place] 13:58: of 57 Medicin e APPLE CIDER 0 Yes Take by [facility] VINEGAR OR 5-14 mouth. [place] 13:58: of 57 Medicin e BIOTIN OR 0 Yes Take by [facility] 5-14 mouth. [place] 13:58: of 57 Medicin e VITAMIN D 2020-0 Yes Take by [facility] OR 5-14 mouth. [place] 13:58: of 57 Medicin e Potassium 2020-0 Yes 2{tbl} Take 2 [facility] Gluconate 5-14 Tablets by [facility] 2.5 MEQ 13:58: mouth. of TABS 57 Medicin e Glucosamine 2020-0 Yes Take by [facility] HCl 1000 MG 5-14 mouth. Colleg e TABS 13:58: of 57 Medicin e Chondroitin 0 Yes Take by [facility] Sulfate A 5-14 mouth. [place] (CHONDROITI 13:58: of N SULFATE 57 Medicin OR) e Coenzyme 0 Yes Take by [facility] Q10 (CO Q 5-14 mouth. [place] 10) 100 MG 13:58: of CAPS 57 Medicin e Capsicum, 0 Yes Take by [facility] [place], 5-14 mouth. [place] (CAYENNE 13:58: of OR) 57 Medicin e Cholecalcif Yes Take by [facility] [place] 5-14 mouth. [place] (VITAMIN 13:58: of D-3 OR) 57 Medicin e Bakari, Yes Take by [facility] Zingiber 5-14 mouth. [place] officinalis 13:58: of , (BAKARI 57 Medicin ROOT OR) e SENNA OR 0 Yes Take by [facility] 5-14 mouth. [place] 13:58: of 57 Medicin e GRAPE SEED Yes Take by [facility] EXTRACT OR 5-14 mouth. [place] 13:58: of 57 Medicin e HAWTHORN OR 0 Yes Take by [facility] 5-14 mouth. [place] 13:58: of 57 Medicin e ketorolac 0 Yes 1[drp] 1 Drop [facility] (ACULAR) 5-14 four times [facility] 0.5 % 13:58: daily. of ophthalmic 57 Medicin solution e prednisoLON 2020-0 Yes daily. [facility] E acetate 5-14 [place] 0.125 % 13:58: of ophthalmic 57 Medicin suspension e ALFALFA OR 0 Yes Take by [facility] 5-14 mouth. [place] 13:58: of 57 Medicin e APPLE CIDER 0 Yes Take by [facility] VINEGAR OR 5-14 mouth. [facility] 13:58: of 57 Medicin e BIOTIN OR 2020-0 Yes Take by [facility] 5-14 mouth. [place] 13:58: of 57 Medicin e azathioprin 2020-0 Yes [id number] 150mg Take 3 [facility] e (IMURAN) 5-14 9106 Tablets by [facility] 50 MG 00:00: mouth of tablet 00 daily. Medicin e tizanidine 2020-0 Yes [id number] Take at [facility] (ZANAFLEX) 10-04 night [place] 2 MG tablet 00:00: of 00 Medicin e azathioprin 2020-0 Yes [id number] 150mg Take 3 [facility] e (IMURAN) 5-14 9106 Tablets by [facility] 50 MG 00:00: mouth of tablet 00 daily. Medicin e tizanidine 2020-0 Yes [id number] Take at [facility] (ZANAFLEX) 10-04 night [place] 2 MG tablet 00:00: of 00 Medicin e azathioprin 2020-0 2020- No [id number] 150mg Take 3 [facility] e (IMURAN) -14 01-15 9106 Tablets by [facility] 50 MG 00:00: 00:00 mouth of tablet 00 :00 daily. Medicin e tizanidine 2020-0 2020- No [id number] [facility] [place] 2 MG tablet 00:00: 00:00 of 00 :00 Medicin e Glucosamine 2020-0 Yes Take by [facility] HCl 1000 MG 4-19 mouth. Colleg e TABS 19:52: of 30 Medicin e Chondroitin 2020-0 Yes Take by [facility] Sulfate A 4-19 mouth. [place] (CHONDROITI 19:52: of N SULFATE 30 Medicin OR) e Coenzyme 0 Yes Take by [facility] Q10 (CO Q 4-19 mouth. College 10) 100 MG 19:52: of CAPS 30 Medicin e Capsicum, 2020-0 Yes Take by [facility] [place], 4-19 mouth. [place] (CAYENNE 19:52: of OR) 30 Medicin e Cholecalcif 2020-0 Yes Take by [facility] [place] 4-19 mouth. [place] (VITAMIN 19:52: of D-3 OR) 30 Medicin e Bakari, 2020-0 Yes Take by [facility] Zingiber 4-19 mouth. [place] officinal 19:52: of , (BAKARI 30 Medicin ROOT OR) e SENNA OR Yes Take by [facility] 4-19 mouth. College 19:52: of 30 Medicin e GRAPE SEED Yes Take by [facility] EXTRACT OR 4-19 mouth. [facility] 19:52: of 30 Medicin e HAWTHORN OR Yes Take by [facility] 4-19 mouth. [facility] 19:52: of 30 Medicin e ketorolac Yes 1[drp] 1 Drop [facility] (ACULAR) -19 four times [facility]le [facility] 0.5 % 19:52: daily. of ophthalmic 30 Medicin solution e prednisoLON Yes daily. [facility] E acetate 09-09 [place] 0.125 % 19:52: of ophthalmic 30 Medicin suspension e ALFALFA OR Yes Take by [facility] 4-19 mouth. [place] 19:52: of 30 Medicin e APPLE CIDER Yes Take by [facility] VINEGAR OR -19 mouth. College 19:52: of 30 Medicin e BIOTIN OR Yes Take by [facility] 4-19 mouth. [place] 19:52: of 30 Medicin e VITAMIN D Yes Take by [facility] OR 4-19 mouth. [place] 19:52: of 30 Medicin e Potassium Yes 2{tbl} Take 2 [facility] Gluconate 4-19 Tablets by [facility] 2.5 MEQ 19:52: mouth. of TABS 29 Medicin e valsartan-h Yes [id number] 1{tbl} Take 1 [facility] ydrochlorot 4-19 Tablet by [facility] hiazide 00:00: mouth of (DIOVAN-HCT 00 daily. Medici n ) 320-12.5 (for blood e MG per pressure) tablet -- NEW DOSING valsartan-h Yes [id number] 1{tbl} Take 1 [facility] ydrochlorot 4-19 Tablet by [facility] hiazide 00:00: mouth of (DIOVAN-HCT 00 daily. Medici n ) 320-12.5 (for blood e MG per pressure) tablet -- NEW DOSING valsartan-h Yes [id number] 1{tbl} Take 1 [facility] ydrochlorot 4-19 Tablet by [facility] hiazide 00:00: mouth of (DIOVAN-HCT 00 daily. Medici n ) 320-12.5 (for blood e MG per pressure) tablet -- NEW DOSING Kenalog 10 2020- No [id number] 5mg [facility] MG/ML 08-29- [place] injection 5 18:15: 18:07 of mg 00 :00 Medicin e Kenalog 10 2020- No [id number] .5mL 5 mg (0.5 [facility] MG/ML 08-29 mL), [place] injection 5 18:15: 18:07 Intra-Lesi of mg 00 :00 onal, Medicin ONCE, 1 e dose, [facility] 08/29/20 at 1315 Glucosamine Yes Take by [facility] HCl 1000 MG 4-08 mouth. Colleg e TABS 17:09: of 50 Medicin e Chondroitin Yes Take by [facility] Sulfate A 4-08 mouth. [place] (CHONDROITI 17:09: of N SULFATE 50 Medicin OR) e Coenzyme Yes Take by [facility] Q10 (CO Q 4-08 mouth. [place] 10) 100 MG 17:09: of CAPS 50 Medicin e Capsicum, Yes Take by [facility] [place], 4-08 mouth. [place] (CAYENNE 17:09: of OR) 50 Medicin e Cholecalcif Yes Take by [facility] rolanda 4-08 mouth. [place] (VITAMIN 17:09: of D-3 OR) 50 Medicin e Bakari, Yes Take by [facility] Zingiber 4-08 mouth. [place] officinalis 17:09: of , (BAKARI 50 Medicin ROOT OR) e SENNA OR Yes Take by [facility] 4-08 mouth. [place] 17:09: of 50 Medicin e GRAPE SEED Yes Take by [facility] EXTRACT OR 4-08 mouth. [place] 17:09: of 50 Medicin e HAWTHORN OR Yes Take by [facility] 4-08 mouth. [place] 17:09: of 50 Medicin e ketorolac 2021-0 Yes 1[drp] 1 Drop [facility] (ACULAR) 08-29 four times [facility] 0.5 % 17:09: daily. of ophthalmic 50 Medicin solution e prednisoLON Yes daily. [facility] E acetate 08-29 [facility] 0.125 % 17:09: of ophthalmic 50 Medicin suspension e ALFALFA OR Yes Take by [facility] 4-08 mouth. College 17:09: of 50 Medicin e APPLE CIDER Yes Take by [facility] VINEGAR OR -08 mouth. College 17:09: of 50 Medicin e BIOTIN OR Yes Take by [facility] - mouth. [place] 17:09: of 50 Medicin e VITAMIN D Yes Take by [facility] OR - mouth. [place] 17:09: of 50 Medicin e doxycycline Yes [id number] Take 100mg [facility] (VIBRAMYCIN 08-29 twice College ) 100 MG 00:00: daily with of capsule 00 food and Medicin full glass e of water. Remain upright for 1 hour after taking. Protect yourself from sun. Not to be used in . halobetasol Yes [id number] Apply to [facility] (ULTRAVATE) 08-29 severely [facility] 0.05 % 00:00: affected of ointment 00 areas Medicin 2x/day x 3 e weeks as needed, then weekends only. Avoid face, groin, armpits. halobetasol Yes [id number] Apply to [facility] (ULTRAVATE) 08-29 severely [facility] 0.05 % 00:00: affected of ointment 00 areas Medicin 2x/day x 3 e weeks as needed, then weekends only. Avoid face, groin, armpits. halobetasol 0 Yes [id number] Apply to [facility] (ULTRAVATE) 08-29 severely [facility] 0.05 % 00:00: affected of ointment 00 areas Medicin 2x/day x 3 e weeks as needed, then weekends only. Avoid face, groin, armpits. halobetasol 2020-0 Yes [id number] Apply to [facility] (ULTRAVATE) 08-29 severely [facility] 0.05 % 00:00: affected of ointment 00 areas Medicin 2x/day x 3 e weeks as needed, then weekends only. Avoid face, groin, armpits. halobetasol 2020-[id number] Apply [address] [facility] 08-29 severely [facility] 0.05 % 00:00: affected of ointment 00 areas Medicin 2x/day x 3 e weeks as needed, then weekends only. Avoid face, groin, armpits. halobetasol 2020-0 Yes [id number] Apply to [facility]) 08-29 severely [facility] 0.05 % 00:00: affected of ointment 00 areas Medicin 2x/day x 3 e weeks as needed, then weekends only. Avoid face, groin, armpits. halobetasol 2020-0 [id number] Apply to [facility] 08-29 severely [facility] 0.05 % 00:00: affected of ointment 00 areas Medicin 2x/day x 3 e weeks as needed, then weekends only. Avoid face, groin, armpits. halobetasol 2020-0 [id number] Apply to [facility] 08-29 severely [facility] 0.05 % 00:00: affected of ointment 00 areas Medicin 2x/day x 3 e weeks as needed, then weekends only. Avoid face, groin, armpits. halobetasol 2020-0 [id number] Apply to [facility] 08-29 severely [facility] 0.05 % 00:00: affected of ointment 00 areas Medicin 2x/day x 3 e weeks as needed, then weekends only. Avoid face, groin, armpits. doxycycline 0 Yes [id number] Take 100mg [facility] (VIBRAMYCIN 08-29 twice College ) 100 MG 00:00: daily with of capsule 00 food and Medicin full glass e of water. Remain upright for 1 hour after taking. Protect yourself from sun. Not to be used in . halobetasol 2020-0 Yes [id number] Apply to [facility]) 08-29 severely [facility] 0.05 % 00:00: affected of ointment 00 areas Medicin 2x/day x 3 e weeks as needed, then weekends only. Avoid face, groin, armpits. doxycycline 2020-0 Yes [id number] Take 100mg [facility] (VIBRAMYCIN 4- twice College ) 100 MG 00:00: daily with of capsule 00 food and Medicin full glass e of water. Remain upright for 1 hour after taking. Protect yourself from sun. Not to be used in . halobetasol 2020-0 Yes [id number] [facility] severely [facility] 0.05 % 00:00: affected of ointment 00 areas Medicin 2x/day x 3 e weeks as needed, then weekends only. Avoid face, groin, armpits. doxycycline 2020-0 Yes [id number] Take 100mg [facility] (VIBRAMYCIN 4-08 twice College ) 100 MG 00:00: daily with of capsule 00 food and Medicin full glass e of water. Remain upright for 1 hour after taking. Protect yourself from sun. Not to be used in . halobetasol 2020-0 Yes [id number] Apply to [facility] WILEXVATE) 08-29 severely [facility] 0.05 % 00:00: affected of ointment 00 areas Medicin 2x/day x 3 e weeks as needed, then weekends only. Avoid face, groin, armpits. halobetasol 0 3- No [id number] Apply to [facility] (Managed by QVATE) 08-29 severely [facility] 0.05 % 00:00: 00:00 affected of ointment 00 :00 areas Medicin 2x/day x 3 e weeks as needed, then weekends only. Avoid face, groin, armpits. linaCLOtide 2021-0 Yes TAKE 1 [facility] (LINZESS) 3-18 CAPSULE BY [facility] 290 MCG 00:00: MOUTH of CAPS 00 EVERY DAY Medicin e linaCLOtide 202-0 Yes TAKE 1 [facility] (LINZESS) 3-18 CAPSULE BY [facility] 290 MCG 00:00: MOUTH of CAPS 00 EVERY DAY Medicin e linaCLOtide 2020-0 Yes TAKE 1 [facility] (LINZESS) 3-18 CAPSULE BY [facility] 290 MCG 00:00: MOUTH of CAPS 00 EVERY DAY Medicin e linaCLOtide 2020-0 Yes TAKE 1 [facility] (LINZESS) 3-18 CAPSULE BY [facility] 290 MCG 00:00: MOUTH of CAPS 00 EVERY DAY Medicin e linaCLOtide 0 Yes TAKE 1 [facility] (LINZESS) 3-18 CAPSULE BY [facility] 290 MCG 00:00: MOUTH of CAPS 00 EVERY DAY Medicin e linaCLOtide 2020-0 Yes TAKE 1 [facility] (LINZESS) 3-18 CAPSULE BY [facility] 290 MCG 00:00: MOUTH of CAPS 00 EVERY DAY Medicin e linaCLOtide 2020-0 Yes TAKE 1 [facility] (LINZESS) 3-18 CAPSULE BY [facility] 290 MCG 00:00: MOUTH of CAPS 00 EVERY DAY Medicin e linaCLOtide 0 Yes TAKE 1 [facility] (LINZESS) 3-18 CAPSULE BY [facility] 290 MCG 00:00: MOUTH of CAPS 00 EVERY DAY Medicin e linaCLOtide 2020-0 2022- No TAKE 1 [facility] (LINZESS) 3-18 - CAPSULE BY [facility] 290 MCG 00:00: 00:00 MOUTH of CAPS 00 :00 EVERY DAY Medicin e Glucosamine 0 Yes Take by [facility] HCl 1000 MG 2-12 mouth. [facility] e TABS 20:34: of 33 Medicin e Chondroitin 0 Yes Take by [facility] Sulfate A 2-12 mouth. [place] (CHONDROITI 20:34: of N SULFATE 33 Medicin OR) e Coenzyme Yes Take by [facility] Q10 (CO Q 2-12 mouth. College 10) 100 MG 20:34: of CAPS 33 Medicin e Capsicum, 0 Yes Take by [facility] [place], 2-12 mouth. [place] (CAYENNE 20:34: of OR) 33 Medicin e Cholecalcif 0 Yes Take by [facility] rolanda 2-12 mouth. [place] (VITAMIN 20:34: of D-3 OR) 33 Medicin e Bakari, 0 Yes Take by [facility] Zingiber 2-12 mouth. [place] officinalis 20:34: of , (BAKARI 33 Medicin ROOT OR) e SENNA OR 0 Yes Take by [facility] 2-12 mouth. [place] 20:34: of 33 Medicin e GRAPE SEED 0 Yes Take by [facility] or EXTRACT OR 2-12 mouth. [facility] 20:34: of 33 Medicin e HAWTHORN OR Yes Take by [facility] 2-12 mouth. [facility] 20:34: of 33 Medicin e ketorolac Yes 1[drp] 1 Drop [facility] (ACULAR) 2-12 four times [facility] 0.5 % 20:34: daily. of ophthalmic 33 Medicin solution e prednisoLON Yes daily. [facility] E acetate 2-12 [facility] 0.125 % 20:34: of ophthalmic 33 Medicin suspension e ALFALFA OR Yes Take by [facility] 2-12 mouth. [facility] 20:34: of 33 Medicin e APPLE CIDER Yes Take by [facility] VINEGAR OR 2-12 mouth. [facility] 20:34: of 33 Medicin e BIOTIN OR Yes Take by [facility] 2-12 mouth. [facility] 20:34: of 33 Medicin e VITAMIN D Yes Take by [facility] OR 2-12 mouth. [facility] 20:34: of 33 Medicin e azathioprin 0 Yes [id number] 150mg Take 3 [facility] e (IMURAN) 2-12 Tablets by [facility] 50 MG 00:00: mouth of tablet 00 daily. Medicin e tizanidine 0 Yes Take at [facility] or (ZANAFLEX) 2- night College 2 MG tablet 00:00: of 00 Medicin e azathioprin 2020-0 Yes [id number] 150mg Take 3 [facility] e (IMURAN) 2-12 Tablets by [facility] 50 MG 00:00: mouth of tablet 00 daily. Medicin e tizanidine 2020-0 Yes Take at [facility] or (ZANAFLEX) 2 night College 2 MG tablet 00:00: of 00 Medicin e azathioprin 2020-0 Yes [id number] 150mg Take 3 [facility] e (IMURAN) 2-12 Tablets by [facility] 50 MG 00:00: mouth of tablet 00 daily. Medicin e tizanidine 2020-0 Yes Take at [facility] or (ZANAFLEX) 2- night College 2 MG tablet 00:00: of 00 Medicin e azathioprin 2020-0 2021- No [id number] 150mg Take 3 [facility] e (IMURAN) 2-12 05-14 Tablets by Co llege 50 MG 00:00: 00:00 mouth of tablet 00 :00 daily. Medicin e tizanidine 2020- No Take at [facility] (ZANAFLEX) 07-05 night [place] 2 MG tablet 00:00: 00:00 of 00 :00 Medicin e azathioprin 2020- No [id number] 150mg Take 3 [facility] e (IMURAN) 07-05 Tablets by Co llege 50 MG 00:00: 00:00 mouth of tablet 00 :00 daily. Medicin e tizanidine 2020- No Take at [facility] (ZANAFLEX) 07-05 night [place] 2 MG tablet 00:00: 00:00 of 00 :00 Medicin e ACAI OR 2020- No Take by [facility] 06-14 mouth. [place] 17:06: 00:00 of 13 :00 Medicin e Fexofenadin 2020- No Take by [facility] HCl 06-14 mouth. [place] (SHIRIN 17:06: 00:00 of OR) 00 :00 Medicin e Nepafenac 0 Yes INSTILL 1 [facility] (ILEVRO) 1-07 DROP INTO Colleg e 0.3 % SUSP 00:00: RIGHT EYE of 00 EVERY DAY Medicin e Nepafenac 0 Yes INSTILL 1 [facility] (ILEVRO) 1-07 DROP INTO Colleg e 0.3 % SUSP 00:00: RIGHT EYE of 00 EVERY DAY Medicin e Nepafenac 0 Yes INSTILL 1 [facility] (ILEVRO) 1-07 DROP INTO Colleg e 0.3 % SUSP 00:00: RIGHT EYE of 00 EVERY DAY Medicin e Nepafenac 0 Yes INSTILL 1 [facility] (ILEVRO) 1-07 DROP INTO Colleg e 0.3 % SUSP 00:00: RIGHT EYE of 00 EVERY DAY Medicin e tizanidine 0 Yes TAKE 1 [facility] (ZANAFLEX) 1-06 TABLET BY [facility] 2 MG tablet 00:00: MOUTH of 00 EVERYDAY Medicin AT BEDTIME e tizanidine 2020- No TAKE 1 [facility] (ZANAFLEX) 05-29 02-12 TABLET BY [facility] 2 MG tablet 00:00: 00:00 MOUTH of 00 :00 EVERYDAY Medicin AT BEDTIME e linaCLOtide 2019-05 Yes 290ug Take 290 [facility] (LINZESS) 1-09 mcg by [place] 290 MCG 00:00: mouth of CAPS 00 daily. Medicin e linaCLOtide 2019-05 Yes 290ug Take 290 [facility] (LINZESS) 1-09 mcg by [place] 290 MCG 00:00: mouth of CAPS 00 daily. Medicin e meloxicam 2019-05- No TAKE 1 [facility] (MOBIC) 15 06-0122 TABLET BY [facility] MG tablet 00:00: 00:00 MOUTH of 00 :00 EVERY DAY Medicin WITH e BREAKFAST valsartan-h 2019-05 Yes 1{tbl} QD Take [address] [facility] [address] [facility] ydrochlorot 1-02 tablet by [facility]ael es hiazide 14:33: mouth Medical (DIOVAN-HCT 33 daily. [place] ) 160-12.5 mg per tablet diltiazem 2019-05 Yes 120mg QD Take [address] [facility] (DILACOR 1-02 mg by [facility] XR) 120 MG 14:33: mouth Medica l 24 hr 33 nightly. [place] capsule diflupredna 2019-05 Yes 1[drp] Place [address] [facility] te 1-02 drop into [facility] (DUREZOL) 14:33: both eyes Med ical 0.05 % Drop 33 as Center directed. acyclovir 2019-05 Yes 200mg Take [address] [facility] (ZOVIRAX) 1-02 mg by [facility] 200 MG 14:33: mouth as Medical capsule 33 needed. [place] ALFALFA 2019-05 Yes 1{tbl} QD Take [address] [facility] ORAL 1-02 tablet by [facility] 14:33: mouth Medical 33 daily. [place] APPLE CIDER 2019-05 Yes 2{capsu QD Take [address] VINEGAR 1-02 le} capsules [facility] ORAL 14:33: by mouth Medical 33 daily. [place] potassium 2019-05 Yes 2{tbl} QD Take [address] [facility] (POTASSIUM 1-02 tablets by Rachael es CHELATED) 14:33: mouth Medical 99 mg Tab 33 daily. [place] biotin 1 mg 2019-05 Yes 1{capsu QD Take [address] Cap 1-02 le} capsule by [facility] 14:[facility]: mouth Medical 33 daily. [place] CAPSICUM, 2019-05 Yes 1{tbl} QD Take [address] [facility] CAYENNE, 1-02 tablet by [facility] ORAL 14:33: mouth Medical 33 daily. [place] CHOLECALCIF 2019-05 Yes 1{capsu QD Take [address] ROLANDA, 1-02 le} capsule by [facility] VITAMIN D3, 14:33: mouth Medic al ORAL 33 daily. [place] coenzyme 2019-05 Yes 10mg QD Take [address] [facility] Q10 10 mg 1-02 by mouth [facility] capsule 14:33: daily. Medical 33 [place] desoximetas 2019-05 Yes Apply [facility] 1-02 topically [facility] (TOPICORT) 14:33: as needed. M edical 0.25 % 33 [place] cream bakari, 2019-05 Yes 1{capsu QD Take 1 [facility] Zingiber 1-02 le} capsule by [facility] officinalis 14:33: mouth Medic al , 500 mg 33 daily. [place] Cap glucosamine 2019-05 Yes 2{capsu QD Take [address] -chondroit- 1-02 le} capsules Luke s vit C-Mn 14:33: by mouth Medic al (GLUCOSAMIN 33 daily. [place] E CHONDROITIN ) 500-400 mg Cap GRAPE SEED 2019-05 Yes 1{capsu QD Take [address] [facility] [address] [facility] EXTRACT 1-02 le} capsule by [facility] ORAL 14:33: mouth Medical 33 daily. [place] hawthorn 2019-05 Yes 1{capsu QD Take [address] [facility] 250 mg Cap 1-02 le} capsule by Rachael es 14:33: mouth Medical 33 daily. [place] magnesium 2019-05 Yes 1{tbl} Q.5D Take [address] [facility] citrate 100 1-02 tablet by Rachael es mg Tab 14:33: mouth 2 Medical 33 (two) Center times daily. KELP ORAL 2019-05 Yes 1{tbl} QD Take [address] [facility] 1-02 tablet by [facility] 14:[facility]: mouth Medical 33 daily. [place] lactobacill 2019-05 Yes 2{capsu QD Take [address] us 1-02 le} capsules [facility] rhamnosus, 14:33: by mouth Med ical GG, 33 daily. [place] (CULTURELLE ) 10 billion cell capsule senna-docus 2019-05 Yes 2{tbl} QD Take [address] [facility] [address] [facility] ate 1-02 tablets by [facility] (SENOKOT S) 14:33: mouth Medic al 8.6-50 mg 33 nightly. Center per tablet turmeric 2019-05 Yes 1{capsu QD Take [address] [facility] root 1-02 le} capsule by [facility] extract 500 14:33: mouth Medic al mg Cap 33 daily. [place] estradioL 2019-[address] [facility] (ESTRACE) 1-02 vaginally [facility] 0.01 % (0.1 14:33: 2 (two) Med ical mg/gram) 33 times Center vaginal daily. cream cyanocobala 2019-05 Yes QD Take by [facility] min, 1-02 mouth [facility] vitamin 14:33: daily. Medical B-12, 2,000 33 Center mcg Tab hawthorn 2019-05 Yes 1{capsu QD Take [address] [facility] 250 mg Cap 1-02 le} capsule by Rachael es 14:33: mouth Medical 33 daily. [place] magnesium 2019-05 Yes 1{tbl} Q.5D Take [address] [facility] citrate 100 1-02 tablet by Rachael es mg Tab 14:33: mouth 2 Medical 33 (two) Center times daily. [facility]P ORAL 2019-05 Yes 1{tbl} QD Take [address] [facility] 1-02 tablet by [facility] 14:33: mouth Medical 33 daily. [place] lactobacill 2019-05 Yes 2{capsu QD Take [address] us 1-02 le} capsules [facility] rhamnosus, 14:33: by mouth Med ical GG, 33 daily. [facility] 10 billion cell capsule senna-docus 2019-05 Yes 2{tbl} QD Take [address] [facility] [address] [facility] ate 1-02 tablets by [facility] (SENOKOT S) 14:33: mouth Medic al 8.6-50 mg 33 nightly. Center per tablet turmeric 2019-05 Yes 1{capsu QD Take [address] [facility] root 1-02 le} capsule by [facility] extract 500 14:33: mouth Medic al mg Cap 33 daily. [place] estradioL 2019-[address] [facility] (ESTRACE) 1-02 vaginally [facility] 0.01 % (0.1 14:33: 2 (two) Med ical mg/gram) 33 times Center vaginal daily. cream cyanocobala 2019-05 Yes QD Take by [facility] min, 1-02 mouth [facility] vitamin 14:33: daily. Medical B-12, 2,000 33 [place] mcg Tab valsartan-h 2019-05 Yes 1{tbl} QD Take [address] ydrochlorot 1-02 tablet by [facility]achael es hiazide 14:33: mouth Medical (DIOVAN-HCT 33 daily. [place] ) 160-12.5 mg per tablet diltiazem 2019-05 Yes 120mg QD Take [address] [facility] (DILACOR 1-02 mg by [facility] XR) 120 MG 14:33: mouth Medica l 24 hr 33 nightly. [place] capsule diflupredna 2019-05 Yes 1[drp] Place [address] te 1-02 drop into [facility] (DUREZOL) 14:33: both eyes Med ical 0.05 % Drop 33 as Center directed. acyclovir 2019-05 Yes 200mg Take [address] [facility] (ZOVIRAX) 1-02 mg by [facility] 200 MG 14:33: mouth as Medical capsule 33 needed. [place] ALFALFA 2019-05 Yes 1{tbl} QD Take [address] [facility] ORAL 1-02 tablet by [facility] 14:33: mouth Medical 33 daily. [place] APPLE CIDER 2019-05 Yes 2{capsu QD Take [address] VINEGAR 1-02 le} capsules [facility] ORAL 14:33: by mouth Medical 33 daily. [place] potassium 2019-05 Yes 2{tbl} QD Take [address] [facility] (POTASSIUM 1-02 tablets by Rachael es CHELATED) 14:33: mouth Medical 99 mg Tab 33 daily. [place] biotin 1 mg 2019-05 Yes 1{capsu QD Take [address] Cap 1-02 le} capsule by [facility] 14:[facility]: mouth Medical 33 daily. [place] CAPSICUM, 2019-05 Yes 1{tbl} QD Take [address] [facility] CAYENNE, 1-02 tablet by [facility] ORAL 14:33: mouth Medical 33 daily. [place] CHOLECALCIF 2019-05 Yes 1{capsu QD Take [address] ROLANDA, 1-02 le} capsule by LuOO[facility]O VITAMIN D3, 14:33: mouth Medic al ORAL 33 daily. [place] coenzyme 2019-05 Yes 10mg QD Take [address] [facility] Q10 10 mg 1-02 by mouth [facility] capsule 14:33: daily. Medical 33 Center desoximetas 2019-05 Yes Apply [facility] 1-02 topically [facility] (TOPICORT) 14:33: as needed. edical 0.25 % 33 [place] cream bkaari, 2019-05 Yes 1{capsu QD Take 1 [facility] Zingiber 1-02 le} capsule by [facility] officinalis 14:33: mouth Medic al , 500 mg 33 daily. [place] Cap glucosamine 2019-05 Yes 2{capsu QD Take [address] -chondroit- 1-02 le} capsules Luke s vit C-Mn 14:33: by mouth Medic al (GLUCOSAMIN 33 daily. [place] E CHONDROITIN ) 500-400 mg Cap GRAPE SEED 2019-05 Yes 1{capsu QD Take [address] [facility] [address] [facility] EXTRACT 1-02 le} capsule by [facility] ORAL 14:33: mouth Medical 33 daily. [place] hawthorn 2019-05 Yes 1{capsu QD Take [address] [facility] 250 mg Cap 1-02 le} capsule by Rachael es 14:33: mouth Medical 33 daily. [place] magnesium 2019-05 Yes 1{tbl} Q.5D Take [address] [facility] citrate 100 1-02 tablet by Rachael es mg Tab 14:33: mouth 2 Medical 33 (two) Center times daily. [facility] ORAL 2019-05 Yes 1{tbl} QD Take [address] [facility] 1-02 tablet by [facility] 14:33: mouth Medical 33 daily. [place] lactobacill 2019-05 Yes 2{capsu QD Take [address] us 1-02 le} capsules [facility] rhamnosus, 14:33: by mouth Med ical GG, 33 daily. [place] (CULTURELL ) 10 billion cell capsule senna-docus 2019-05 Yes 2{tbl} QD Take [address] [facility] [address] [facility] ate 1-02 tablets by [facility] (SENOKOT S) 14:33: mouth Medic al 8.6-50 mg 33 nightly. [place] per tablet turmeric 2019-05 Yes 1{capsu QD Take [address] [facility] root 1-02 le} capsule by [facility] extract 500 14:33: mouth Medic al mg Cap 33 daily. [place] estradioL 2019-[address] [facility] (ESTRACE) 1-02 vaginally [facility] 0.01 % (0.1 14:33: 2 (two) Med ical mg/gram) 33 times Center vaginal daily. cream cyanocobala 2019-05 Yes QD Take by [facility] min, 1-02 mouth [facility] vitamin 14:33: daily. Medical B-12, 2,000 33 Center mcg Tab valsartan-h 2019-05 Yes 1{tbl} QD Take [address] [facility] [address] [facility] ydrochlorot 1-02 tablet by Rachael es hiazide 14:33: mouth Medical (DIOVAN-HCT 33 daily. [place] ) 160-12.5 mg per tablet diltiazem 2019-05 Yes 120mg QD Take [address] [facility] (DILACOR 1-02 mg by [facility] XR) 120 MG 14:33: mouth Medica l 24 hr 33 nightly. [place] capsule diflupredna 2019-05 Yes 1[drp] Place [address] te 1-02 drop into [facility] (DUREZOL) 14:33: both eyes Med ical 0.05 % Drop 33 as Center directed. acyclovir 2019-05 Yes 200mg Take [address] [facility] (ZOVIRAX) 1-02 mg by [facility] 200 MG 14:33: mouth as Medical capsule 33 needed. [place] ALFALFA 2019-05 Yes 1{tbl} QD Take [address] [facility] ORAL 1-02 tablet by [facility] 14:33: mouth Medical 33 daily. [place] APPLE CIDER 2019-05 Yes 2{capsu QD Take [address] VINEGAR 1-02 le} capsules [facility] ORAL 14:33: by mouth Medical 33 daily. [place] potassium 2019-05 Yes 2{tbl} QD Take [address] [facility] (POTASSIUM 1-02 tablets by Rachael es CHELATED) 14:33: mouth Medical 99 mg Tab 33 daily. [place] biotin 1 mg 2019-05 Yes 1{capsu QD Take [address] Cap 1-02 le} capsule by [facility] 14:33: mouth Medical 33 daily. [place] CAPSICUM, 2019-05 Yes 1{tbl} QD Take [address] [facility] CAYENNE, 1-02 tablet by [facility] ORAL 14:33: mouth Medical 33 daily. [place] CHOLECALCIF 2019-05 Yes 1{capsu QD Take [address] ROLANDA, 1-02 le} capsule by LuOOYYO VITAMIN D3, 14:33: mouth Medic al ORAL 33 daily. [place] coenzyme 2019-05 Yes 10mg QD Take [address] [facility] Q10 10 mg 1-02 by mouth [facility] capsule 14:33: daily. Medical 33 [place] desoximetas 2019-05 Yes Apply [facility] 1-02 topically [facility] (TOPICORT) 14:33: as needed. edical 0.25 % 33 [place] cream bakari, 2019-05 Yes 1{capsu QD Take 1 [facility] Zingiber 1-02 le} capsule by [facility] officinalis 14:33: mouth Medic al , 500 mg 33 daily. [place] Cap glucosamine 2019-05 Yes 2{capsu QD Take [address] -chondroit- 1-02 le} capsules Luke [facility] vit C-Mn 14:33: by mouth Medic al (GLUCOSAMIN 33 daily. [place] E CHONDROITIN ) 500-400 mg Cap GRAPE SEED 2019-05 Yes 1{capsu QD Take [address] [facility] [address] [facility] EXTRACT 1-02 le} capsule by [facility] ORAL 14:33: mouth Medical 33 daily. [place] hawthorn 2019-05 Yes 1{capsu QD Take [address] [facility] 250 mg Cap 1-02 le} capsule by Rachael es 14:33: mouth Medical 33 daily. [place] magnesium 2019-05 Yes 1{tbl} Q.5D Take [address] [facility] citrate 100 1-02 tablet by Rachael es mg Tab 14:33: mouth 2 Medical 33 (two) Center times daily. [facility] ORAL 2019-05 Yes 1{tbl} QD Take [address] [facility] 1-02 tablet by [facility] 14:33: mouth Medical 33 daily. [place] lactobacill 2019-05 Yes 2{capsu QD Take [address] us 1-02 le} capsules [facility] rhamnosus, 14:33: by mouth Med ical GG, 33 daily. [place] ([facility] ) 10 billion cell capsule senna-docus 2019-05 Yes 2{tbl} QD Take [address] [facility] ate 1-02 tablets by [facility] (SENOKOT S) 14:33: mouth Medic al 8.6-50 mg 33 nightly. [place] per tablet turmeric 2019-05 Yes 1{capsu QD Take [address] [facility] root 1-02 le} capsule by [facility] extract 500 14:33: mouth Medic al mg Cap 33 daily. [place] estradioL 2019-[address] [facility] (ESTRACE) 1-02 vaginally [facility] 0.01 % (0.1 14:33: 2 (two) Med ical mg/gram) 33 times [place] vaginal daily. cream cyanocobala 2019-05 Yes QD Take by [facility] min, 1-02 mouth [facility] vitamin 14:33: daily. Medical B-12, 2,000 33 [place] mcg Tab valsartan-h 2019-05 Yes 1{tbl} QD Take [address] ydrochlorot 1-02 tablet by Rachael es hiazide 14:33: mouth Medical (DIOVAN-HCT 33 daily. [place] ) 160-12.5 mg per tablet diltiazem 2019-05 Yes 120mg QD Take [address] [facility] (DILACOR 1-02 mg by [facility] XR) 120 MG 14:33: mouth Medica l 24 hr 33 nightly. [place] capsule diflupredna 2019-05 Yes 1[drp] Place [address] te 1-02 drop into [facility] (DUREZOL) 14:33: both eyes Med ical 0.05 % Drop 33 as Center directed. acyclovir 2019-05 Yes 200mg Take [address] [facility] (ZOVIRAX) 1-02 mg by [facility] 200 MG 14:33: mouth as Medical capsule 33 needed. [place] ALFALFA 2019-05 Yes 1{tbl} QD Take [address] [facility] ORAL 1-02 tablet by [facility] 14:33: mouth Medical 33 daily. [place] APPLE CIDER 2019-05 Yes 2{capsu QD Take [address] VINEGAR 1-02 le} capsules [facility] ORAL 14:33: by mouth Medical 33 daily. [place] potassium 2019-05 Yes 2{tbl} QD Take [address] [facility] (POTASSIUM 1-02 tablets by Rachael es CHELATED) 14:33: mouth Medical 99 mg Tab 33 daily. [place] biotin 1 mg 2019-05 Yes 1{capsu QD Take [address] Cap 1-02 le} capsule by [facility] 14:33: mouth Medical 33 daily. [place] CAPSICUM, 2019-05 Yes 1{tbl} QD Take [address] [facility] CAYENNE, 1-02 tablet by [facility] ORAL 14:33: mouth Medical 33 daily. [place] CHOLECALCIF 2019-05 Yes 1{capsu QD Take [address] ROLANDA, 1-02 le} capsule by LuOOYYO VITAMIN D3, 14:33: mouth Medic al ORAL 33 daily. [place] coenzyme 2019-05 Yes 10mg QD Take [address] [facility] Q10 10 mg 1-02 by mouth [facility] capsule 14:33: daily. Medical 33 [place] desoximetas 2019-05 Yes Apply [facility] 1-02 topically [facility] (TOPICORT) 14:33: as needed. M edical 0.25 % 33 [place] cream bakari, 2019-05 Yes 1{capsu QD Take 1 [facility] Zingiber 1-02 le} capsule by [facility] officinalis 14:33: mouth Medic al , 500 mg 33 daily. [place] Cap glucosamine 2019-05 Yes 2{capsu QD Take [address] -chondroit- 1-02 le} capsules [facility] vit C-Mn 14:33: by mouth Medic al (GLUCOSAMIN 33 daily. [place] E CHONDROITIN ) 500-400 mg Cap GRAPE SEED 2019-05 Yes 1{capsu QD Take [address] [facility] EXTRACT 1-02 le} capsule by [facility] ORAL 14:33: mouth Medical 33 daily. [place] hawthorn 2019-05 Yes 1{capsu QD Take [address] [facility] 250 mg Cap 1-02 le} capsule by Rachael es 14:33: mouth Medical 33 daily. [place] magnesium 2019-05 Yes 1{tbl} Q.5D Take [address] [facility] citrate 100 1-02 tablet by Rachael es mg Tab 14:33: mouth 2 Medical 33 (two) Center times daily. [facility] ORAL 2019-05 Yes 1{tbl} QD Take [address] [facility] 1-02 tablet by [facility] 14:33: mouth Medical 33 daily. [place] lactobacill 2019-05 Yes 2{capsu QD Take [address] us 1-02 le} capsules [facility] rhamnosus, 14:33: by mouth Med ical GG, 33 daily. [place] (CULTURELLE ) 10 billion cell capsule senna-docus 2019-05 Yes 2{tbl} QD Take [address] [facility] ate 1-02 tablets by [facility] (SENOKOT S) 14:33: mouth Medic al 8.6-50 mg 33 nightly. [place] per tablet turmeric 2019-05 Yes 1{capsu QD Take [address] [facility] root 1-02 le} capsule by [facility] extract 500 14:33: mouth Medic al mg Cap 33 daily. [place] estradioL 2019-[address] [facility] (ESTRACE) 1-02 vaginally [facility] 0.01 % (0.1 14:33: 2 (two) Med ical mg/gram) 33 times Center vaginal daily. cream cyanocobala 2019-05 Yes QD Take by [facility] min, 1-02 mouth [facility] vitamin 14:33: daily. Medical B-12, 2,000 33 [place] mcg Tab valsartan-h 2019-05 Yes 1{tbl} QD Take [address] ydrochlorot 1-02 tablet by [facility]ael es hiazide 14:33: mouth Medical (DIOVAN-HCT 33 daily. [place] ) 160-12.5 mg per tablet diltiazem 2019-05 Yes 120mg QD Take [address] [facility] (DILACOR 1-02 mg by [facility] XR) 120 MG 14:33: mouth Medica l 24 hr 33 nightly. [place] capsule diflupredna 2019-05 Yes 1[drp] Place [address] te 1-02 drop into [facility] (DUREZOL) 14:33: both eyes Med ical 0.05 % Drop 33 as Center directed. acyclovir 2019-05 Yes 200mg Take [address] [facility] (ZOVIRAX) 1-02 mg by [facility] 200 MG 14:33: mouth as Medical capsule 33 needed. [place] ALFALFA 2019-05 Yes 1{tbl} QD Take [address] [facility] ORAL 1-02 tablet by [facility] 14:33: mouth Medical 33 daily. [place] APPLE CIDER 2019-05 Yes 2{capsu QD Take [address] VINEGAR 1-02 le} capsules [facility] ORAL 14:33: by mouth Medical 33 daily. [place] potassium 2019-05 Yes 2{tbl} QD Take [address] [facility] (POTASSIUM 1-02 tablets by Rachael es CHELATED) 14:33: mouth Medical 99 mg Tab 33 daily. [place] biotin 1 mg 2019-05 Yes 1{capsu QD Take [address] Cap 1-02 le} capsule by [facility] 14:33: mouth Medical 33 daily. [place] CAPSICUM, 2019-05 Yes 1{tbl} QD Take [address] [facility] CAYENNE, 1-02 tablet by [facility] ORAL 14:33: mouth Medical 33 daily. [place] CHOLECALCIF 2019-05 Yes 1{capsu QD Take [address] ROLANDA, 1-02 le} capsule by [facility] VITAMIN D3, 14:33: mouth Medic al ORAL 33 daily. [place] coenzyme 2019-05 Yes 10mg QD Take [address] [facility] Q10 10 mg 1-02 by mouth [facility] capsule 14:33: daily. Medical 33 [place] desoximetas 2019-05 Yes Apply [facility] 05-25 topically [facility] (TOPICORT) 14:33: as needed. M edical 0.25 % 33 [place] cream bakari, 2019-05 Yes 1{capsu QD Take 1 [facility] Zingiber 1-02 le} capsule by [facility] officinalis 14:33: mouth Medic al , 500 mg 33 daily. [place] Cap glucosamine 2019-05 Yes 2{capsu QD Take [address] -chondroit- 1- le} capsules [facility] vit C-Mn 14:33: by mouth Medic al (GLUCOSAMIN 33 daily. [place] E CHONDROITIN ) 500-400 mg Cap GRAPE SEED 2019-05 Yes 1{capsu QD Take [address] EXTRACT 05-25 le} capsule by [facility] ORAL 14:33: mouth Medical 33 daily. [place] Glucosamine 2019-05 Yes Take by [facility] HCl 1000 MG 0-29 mouth. Colleg e TABS 19:15: of 36 Medicin e Chondroitin 2019-05 Yes Take by [facility] Sulfate A 0-29 mouth. [place] (CHONDROITI 19:15: of N SULFATE 36 Medicin OR) e Coenzyme 2019-05 Yes Take by [facility] Q10 (CO Q 0-29 mouth. [place] 10) 100 MG 19:15: of CAPS 36 Medicin e Fexofenadin 2019-05 Yes Take by [facility] e HCl 0-29 mouth. [place] (SHIRIN 19:15: of OR) 36 Medicin e Capsicum, 2019-05 Yes Take by [facility] [place], 0-29 mouth. [place] (CAYENNE 19:15: of OR) 36 Medicin e Cholecalcif 2019-05 Yes Take by [facility] rolanda 0-29 mouth. [place] (VITAMIN 19:15: of D-3 OR) 36 Medicin e Bakari, 2019-05 Yes Take by [facility] Zingiber 0-29 mouth. [place] officinalis 19:15: of , (BAKARI 36 Medicin ROOT OR) e SENNA OR 2019-05 Yes Take by [facility] 0-29 mouth. [place] 19:15: of 36 Medicin e GRAPE SEED 2019-05 Yes Take by [facility] EXTRACT OR 0-29 mouth. [place] 19:15: of 36 Medicin e HAWTHORN OR 2019-05 Yes Take by [facility] 0-29 mouth. [place] 19:15: of 36 Medicin e ketorolac 2019- Yes 1[drp] 1 Drop Bayl or (ACULAR) 0-29 four times [place] 0.5 % 19:15: daily. of ophthalmic 36 Medicin solution e prednisoLON 2019- Yes daily. Bayl or E acetate 0-29 [place] 0.125 % 19:15: of ophthalmic 36 Medicin suspension e ACAI OR 2019-05 Yes Take by Massimo 0-29 mouth. [place] 19:15: of 36 Medicin e ALFALFA OR 2019-05 Yes Take by Bayl or 0-29 mouth. [place] 19:15: of 36 Medicin e APPLE CIDER 2019- Yes Take by [place]om[place] jessi VINEGAR OR 0-29 mouth. [place] 19:15: of 36 Medicin e BIOTIN OR 2019-05 Yes Take by [facility] 0-29 mouth. [place] 19:15: of 36 Medicin e VITAMIN D 2019-05 Yes Take by [facility] OR 0-29 mouth. [place] 19:15: of 36 Medicin e Glucosamine 2019-05 Yes Take by [facility] HCl [facility] Medicin e Chondroitin 2019-05 Yes Take by [facility] Sulfate A 0-29 mouth. [place] (CHONDROITI 19:15: of N SULFATE 36 Medicin OR) e Coenzyme 2019-05 Yes Take by [facility] Q10 (CO Q 0-29 mouth. [facility] 10) 100 MG 19:15: of CAPS 36 Medicin e Capsicum, 2019-05 Yes Take by [facility] [place], 0-29 mouth. [place] (CAYENNE 19:15: of OR) 36 Medicin e Cholecalcif 2019-05 Yes Take by [facility] [place] 0-29 mouth. [place] (VITAMIN 19:15: of D-3 OR) 36 Medicin e Bakari, 2019-05 Yes Take by [facility] Zingiber 0-29 mouth. [place] officinalis 19:15: of , (BAKARI 36 Medicin ROOT OR) e SENNA OR 2019-05 Yes Take by [facility] 0-29 mouth. [place] 19:15: of 36 Medicin e GRAPE SEED 2019- Yes Take by [facility] EXTRACT OR 0-29 mouth. [place] 19:15: of 36 Medicin e HAWTHORN OR 2019-05 Yes Take by [facility] 0-29 mouth. [place] 19:15: of 36 Medicin e ketorolac 2019-05 Yes 1[drp] 1 Drop [facility] (ACULAR) 0-29 four times [facility] 0.5 % 19:15: daily. of ophthalmic 36 Medicin solution e prednisoLON 2019-05 Yes daily. [facility] E acetate 0-29 [facility] 0.125 % 19:15: of ophthalmic 36 Medicin suspension e ALFALFA OR 2019-05 Yes Take by [facility] 0-29 mouth. [facility] 19:15: of 36 Medicin e APPLE CIDER 2019-05 Yes Take by [facility] VINEGAR OR 0-29 mouth. [facility] 19:15: of 36 Medicin e BIOTIN OR 2019-05 Yes Take by [facility] 0-29 mouth. [place] 19:15: of 36 Medicin e VITAMIN D 2019-05 Yes Take by [facility] OR 0-29 mouth. [place] 19:15: of 36 Medicin e Na 2019-05 Yes [id number] [SUPREP] [facility] Sulfate-K 0-29 Take as [facility] Sulfate-Mg 00:00: directed. of Sulf 00 Medicin (SUPREP e BOWEL PREP KIT) 17.5-3.13-1 .6 GM/177ML SOLN Na 2019-05 Yes [id number] [SUPREP] [facility] Sulfate-K 0-29 Take as [facility] Sulfate-Mg 00:00: directed. of Sulf 00 Medicin (SUPREP e BOWEL PREP KIT) 17.5-3.13-1 .6 GM/177ML SOLN Na 2019-05 Yes [id number] [SUPREP] [facility] Sulfate-K 0-29 Take as [facility] Sulfate-Mg 00:00: directed. of Sulf 00 Medicin (SUPREP e BOWEL PREP KIT) 17.5-3.13-1 .6 GM/177ML SOLN Na 2019-05 Yes [id number] [SUPREP] [facility] Sulfate-K 0-29 Take as [facility] Sulfate-Mg 00:00: directed. of Sulf 00 Medicin (SUPREP e BOWEL PREP KIT) 17.5-3.13-1 .6 GM/177ML SOLN Na 2019-05 Yes [id number] [SUPREP] [facility] Sulfate-K 0-29 Take as [facility] Sulfate-Mg 00:00: directed. of Sulf 00 Medicin (SUPREP e BOWEL PREP KIT) 17.5-3.13-1 .6 GM/177ML SOLN Na 2020 Yes [id number] [SUPREP] [facility] Sulfate-K 0-29 Take as [facility] Sulfate-Mg 00:00: directed. of Sulf 00 Medicin (SUPREP e BOWEL PREP KIT) 17.5-3.13-1 .6 GM/177ML SOLN Na 2020 Yes [id number] [SUPREP] [facility] Sulfate-K 0-29 Take as [facility] Sulfate-Mg 00:00: directed. of Sulf 00 Medicin (SUPREP e BOWEL PREP KIT) 17.5-3.13-1 .6 GM/177ML SOLN Na 2020 Yes [id number] [SUPREP] [facility] Sulfate-K 0-29 Take as [facility] Sulfate-Mg 00:00: directed. of Sulf 00 Medicin (SUPREP e BOWEL PREP KIT) 17.5-3.13-1 .6 GM/177ML SOLN Na 2019-05 Yes [id number] [SUPREP] [facility] Sulfate-K 0-29 Take as [facility] Sulfate-Mg 00:00: directed. of Sulf 00 Medicin (SUPREP e BOWEL PREP KIT) 17.5-3.13-1 .6 GM/177ML SOLN Na 2020 Yes [id number] [SUPREP] [facility] Sulfate-K 0-29 Take as [facility] Sulfate-Mg 00:00: directed. of Sulf 00 Medicin (SUPREP e BOWEL PREP KIT) 17.5-3.13-1 .6 GM/177ML SOLN Na 2020 Yes [id number] [SUPREP] [facility] Sulfate-K 0-29 Take as [facility] Sulfate-Mg 00:00: directed. of Sulf 00 Medicin (SUPREP e BOWEL PREP KIT) 17.5-3.13-1 .6 GM/177ML SOLN Na 2019-05- No [id number] [SUPREP] [facility] Sulfate-K 0-29 - Take as [facility] Sulfate-Mg 00:00: 00:00 directed. o f Sulf 00 :00 Medicin (SUPREP e BOWEL PREP KIT) 17.5-3.13-1 .6 GM/177ML SOLN estradiol 2019-05 Yes Use a [facility] (ESTRACE) 0-21 fingertip [facility] 0.1 MG/GM 00:00: amount of vaginal 00 twice Medicin cream weekly e estradiol 2019-05 Yes Use a [facility] (ESTRACE) 0-21 fingertip Colle ge 0.1 MG/GM 00:00: amount of vaginal 00 twice Medicin cream weekly e estradiol 2019-05 Yes Use a [place] (ESTRACE) 0-21 fingertip Colle ge 0.1 MG/GM 00:00: amount of vaginal 00 twice Medicin cream weekly e estradiol 2019-05 Yes Use a [place] (ESTRACE) 0-21 fingertip Colle ge 0.1 MG/GM 00:00: amount of vaginal 00 twice Medicin cream weekly e estradiol 2019-05 Yes Use a [facility] (ESTRACE) 0-21 fingertip Colle ge 0.1 MG/GM 00:00: amount of vaginal 00 twice Medicin cream weekly e estradiol 2019-05 Yes Use a [facility] (ESTRACE) 0-21 fingertip Colle ge 0.1 MG/GM 00:00: amount of vaginal 00 twice Medicin cream weekly e estradiol 2019-05 Yes Use a [facility] (ESTRACE) 0-21 fingertip Colle ge 0.1 MG/GM 00:00: amount of vaginal 00 twice Medicin cream weekly e estradiol 2019-05 Yes Use a [place] (ESTRACE) 0-21 fingertip Colle ge 0.1 MG/GM 00:00: amount of vaginal 00 twice Medicin cream weekly e estradiol 2019-05 Yes Use a [place] (ESTRACE) 0-21 fingertip Colle ge 0.1 MG/GM 00:00: amount of vaginal 00 twice Medicin cream weekly e estradiol 2019-05 Yes Use a [place] (ESTRACE) 0-21 fingertip Colle ge 0.1 MG/GM 00:00: amount of vaginal 00 twice Medicin cream weekly e estradiol 2019-05 Yes Use a [place] (ESTRACE) 0-21 fingertip Colle ge 0.1 MG/GM 00:00: amount of vaginal 00 twice Medicin cream weekly e estradiol 2019-05 Yes Use a [place] (ESTRACE) 0-21 fingertip Colle ge 0.1 MG/GM 00:00: amount of vaginal 00 twice Medicin cream weekly e estradiol 2019-05 Yes Use a [place] (ESTRACE) 0-21 fingertip Colle ge 0.1 MG/GM 00:00: amount of vaginal 00 twice Medicin cream weekly e estradiol 2019-05 Yes Use a [facility] (ESTRACE) 0-21 fingertip Colle ge 0.1 MG/GM 00:00: amount of vaginal 00 twice Medicin cream weekly e estradiol 2019-05 Yes Use a [place] (ESTRACE) 0-21 fingertip Colle ge 0.1 MG/GM 00:00: amount of vaginal 00 twice Medicin cream weekly e estradiol 2019-05- No Use a [place] (ESTRACE) 0-21 -23 fingertip [facility] 0.1 MG/GM 00:00: 00:00 amount of vaginal 00 :00 twice Medicin cream weekly e Glucosamine 2019-05 Yes Take by [facility] HCl 1000 MG 0-14 mouth. [facility] e TABS 16:21: of 25 Medicin e Chondroitin 2019-05 Yes Take by [facility] Sulfate A 0-14 mouth. [place] (CHONDROITI 16:21: of N SULFATE 25 Medicin OR) e Coenzyme 2019-05 Yes Take by [facility] Q10 (CO Q 0-14 mouth. [facility] 10) 100 MG 16:21: of CAPS 25 Medicin e APPLE CIDER 2019-05 Yes Take by [facility] VINEGAR OR 0-14 mouth. [place] 16:21: of 25 Medicin e ALFALFA OR 2019-05 Yes Take by [facility] 0-14 mouth. [place] 16:21: of 25 Medicin e Fexofenadin 2019-05 Yes Take by [facility] e HCl 0-14 mouth. [place] (SHIRIN 16:21: of OR) 25 Medicin e Capsicum, 2019-05 Yes Take by [facility] [place], 0-14 mouth. [place] (CAYENNE 16:21: of OR) 25 Medicin e BIOTIN OR 2019-05 Yes Take by [facility] 0-14 mouth. [place] 16:21: of 25 Medicin e Cholecalcif 2019-05 Yes Take by [facility] [place] 0-14 mouth. [place] (VITAMIN 16:21: of D-3 OR) 25 Medicin e Bakari, 2019-05 Yes Take by [facility] Zingiber 0-14 mouth. [place] officinalis 16:21: of , (BAKARI 25 Medicin ROOT OR) e SENNA OR 2019-05 Yes Take by [facility] 0-14 mouth. [place] 16:21: of 25 Medicin e GRAPE SEED 2019-05 Yes Take by [facility] EXTRACT OR 0-14 mouth. [place] 16:21: of 25 Medicin e HAWTHORN OR 2019- Yes Take by [facility] 0-14 mouth. [place] 16:21: of 25 Medicin e ketorolac 2019- Yes 1[drp] 1 Drop [facility] (ACULAR) 0-14 four times [facility] 0.5 % 16:21: daily. of ophthalmic 25 Medicin solution e prednisoLON 2020- Yes daily. [facility] E acetate 0-14 [facility] 0.125 % 16:21: of ophthalmic 25 Medicin suspension e Glucosamine 2019- Yes Take by [facility] HCl 1000 MG 0-14 mouth. [facility] e TABS 16:21: of 25 Medicin e Chondroitin 2019- Yes Take by [facility] Sulfate A 0-14 mouth. [place] (CHONDROITI 16:21: of N SULFATE 25 Medicin OR) e Coenzyme 2019- Yes Take by [facility] Q10 (CO Q 0-14 mouth. [facility] 10) 100 MG 16:21: of CAPS 25 Medicin e APPLE CIDER 2019-05 Yes Take by [facility] VINEGAR OR 0-14 mouth. [place] 16:21: of 25 Medicin e ALFALFA OR 2019-05 Yes Take by [facility] 0-14 mouth. [place] 16:21: of 25 Medicin e Fexofenadin 2019-05 Yes Take by [facility] e HCl 0-14 mouth. [place] (SHIRIN 16:21: of OR) 25 Medicin e Capsicum, 2019- Yes Take by [facility] [place], 0-14 mouth. [place] (CAYENNE 16:21: of OR) 25 Medicin e BIOTIN OR 2019- Yes Take by [facility] 0-14 mouth. [place] 16:21: of 25 Medicin e Cholecalcif 2019-05 Yes Take by [facility] [place] 0-14 mouth. [place] (VITAMIN 16:21: of D-3 OR) 25 Medicin e Bakari, 2019-05 Yes Take by [facility] Zingiber 0-14 mouth. [place] officinalis 16:21: of , (BAKARI 25 Medicin ROOT OR) e SENNA OR 2019-05 Yes Take by [facility] 0-14 mouth. [place] 16:21: of 25 Medicin e GRAPE SEED 2019- Yes Take by [facility] EXTRACT OR 0-14 mouth. [place] 16:21: of 25 Medicin e HAWTHORN OR 2019-05 Yes Take by [facility] 0-14 mouth. [facility] 16:21: of 25 Medicin e ketorolac 2019-05 Yes 1[drp] 1 Drop [facility] (ACULAR) 0-14 four times [facility]le ge 0.5 % 16:21: daily. of ophthalmic 25 Medicin solution e prednisoLON 2019-05 Yes daily. [facility] E acetate 0-14 [facility] 0.125 % 16:21: of ophthalmic 25 Medicin suspension e azaTHIOprin 2019-05 Yes 150mg QD Take [address] [facility] (IMURAN) 0-14 mg [facility]: mouth Medical tablet 00 daily. [place] azaTHIOprin 2019-05 Yes 150mg QD Take [address] [facility] (IMURAN) 0-14 mg by [facility] mg 00:00: mouth Medical tablet 00 daily. [place] azaTHIOprin 2019-05 Yes 150mg QD Take [address] [facility] (IMURAN) 0-14 mg by [facility] mg 00:00: mouth Medical tablet 00 daily. [place] azaTHIOprin 2019-05 Yes 150mg QD Take [address] [facility] (IMURAN) 0-14 mg by [facility] mg 00:00: mouth Medical tablet 00 daily. [place] azaTHIOprin 2019-05 Yes 150mg QD Take [address] [facility] (IMURAN) 0-14 mg by [facility] mg 00:00: mouth Medical tablet 00 daily. [place] azathioprin 2019-05 Yes [id number] 150mg Take 3 [facility] e (IMURAN) 0-14 Tabs by [facility] e 50 MG 00:00: mouth of tablet 00 daily. Medicin e Meloxicam 2019-05 Yes 15mg Take 15 mg [facility] 15 MG TBDP 0-14 by mouth [facility]le [facility] 00:00: daily of 00 (with Medicin breakfast) e . azathioprin 2019-05 Yes [id number] 150mg Take 3 [facility] e (IMURAN) 0-14 Tabs by [facility] 50 MG 00:00: mouth of tablet 00 daily. Medicin e Meloxicam 2019-05 Yes 15mg Take 15 mg [facility] 15 MG TBDP 0-14 by mouth [facility] 00:00: daily of 00 (with Medicin breakfast) e . azathioprin 2019-05- No [id number] 150mg Take 3 [facility] e (IMURAN) 0-14 -22 Tabs by [facility] 50 MG 00:00: 00:00 mouth of tablet 00 :00 daily. Medicin e Meloxicam 2019-05- No 15mg Take 15 mg [facility] 15 MG TBDP 0-14 06-14 by mouth [facility] 00:00: 00:00 daily of 00 :00 (with Medicin breakfast) e . ACAI OR 2019-05 Yes Take by [facility] 0-12 mouth. College 16:29: of 06 Medicin e ACAI OR 2019-05 Yes Take by [facility] 0-12 mouth. [place] 16:29: of 06 Medicin e B 2019-05- No Take by [facility] Complex-Bio 0-12 10-12 mouth. [place] ge tin-FA 16:28: 00:00 of (B-COMPLEX 46 :00 Medicin OR) e furosemide Yes TAKE [address] [facility] (LASIX) 20 9-06 BY MOUTH [facility] tablet 00:00: DAILY. Medica l 00 (FOR BLOOD Center PRESSURE AND LEG SWELLING) furosemide Yes TAKE [address] (LASIX) 20 9-06 BY MOUTH [facility] tablet 00:00: DAILY. Medica l 00 (FOR BLOOD Center PRESSURE AND LEG SWELLING) furosemide 0 Yes TAKE [address] (LASIX) 20 9-06 BY MOUTH [facility] tablet 00:00: DAILY. Medica l 00 (FOR BLOOD Center PRESSURE AND LEG SWELLING) furosemide 0 Yes TAKE [address] (LASIX) 20 9-06 BY MOUTH [facility] tablet 00:00: DAILY. Medica l 00 (FOR BLOOD Center PRESSURE AND LEG SWELLING) furosemide Yes TAKE [address] (LASIX) 20 9-06 BY MOUTH [facility] tablet 00:00: DAILY. Medica l 00 (FOR BLOOD Center PRESSURE AND LEG SWELLING) valsartan-h 2019- Yes [id number] TAKE 1 [facility] ydrochlorot 8-25 TABLET BY Col [facility]ge hiazide 00:00: MOUTH of (DIOVAN-HCT 00 EVERY DAY Med icin ) 160-12.5 FOR BLOOD e MG per PRESSURE tablet valsartan-h 2019-0 Yes [id number] TAKE 1 [facility] ydrochlorot 8-25 TABLET BY Col [facility] hiazide 00:00: MOUTH of (DIOVAN-HCT 00 EVERY DAY Med icin ) 160-12.5 FOR BLOOD e MG per PRESSURE tablet valsartan-h 2020-0 Yes [id number] TAKE 1 [facility] ydrochlorot 8-25 TABLET BY [facility] hiazide 00:00: MOUTH of (DIOVAN-HCT 00 EVERY DAY Med icin ) 160-12.5 FOR BLOOD e MG per PRESSURE tablet valsartan-h 2020-0 Yes [id number] TAKE 1 [facility] ydrochlorot 8-25 TABLET BY [facility] hiazide 00:00: MOUTH of (DIOVAN-HCT 00 EVERY DAY Med icin ) 160-12.5 FOR BLOOD e MG per PRESSURE tablet valsartan-h 2020-0 Yes [id number] TAKE 1 [facility] ydrochlorot 8-25 TABLET BY [facility] hiazide 00:00: MOUTH of (DIOVAN-HCT 00 EVERY DAY Med icin ) 160-12.5 FOR BLOOD e MG per PRESSURE tablet valsartan-h 2020-0 Yes [id number] TAKE 1 [place] ydrochlorot 8-25 TABLET BY [facility] hiazide 00:00: MOUTH of (DIOVAN-HCT 00 EVERY DAY Med icin ) 160-12.5 FOR BLOOD e MG per PRESSURE tablet valsartan-h 2020-0 2021- No [id number] TAKE 1 [place] ydrochlorot 8-25 04-19 TABLET BY Co llege hiazide 00:00: 00:00 MOUTH of (DIOVAN-HCT 00 :00 EVERY DAY Med icin ) 160-12.5 FOR BLOOD e MG per PRESSURE tablet tiZANidine 2020-0 Yes [facility] TABLET [facility] 2 MG tablet 00:00: MOUTH Medic al 00 EVERYDAY Center AT BEDTIME tiZANidine 2020-0 Yes [facility] 1 [facility] ([facility]FLEX[facility] 7-[facility] TABLET BY [facility] 2 MG tablet 00:00: MOUTH Medic al 00 EVERYDAY Center AT BEDTIME tiZANidine 2020-0 Yes [facility] 1 [facility] (ZA[facility]FLEX[facility] 7-20 TABLET BY [facility] 2 MG tablet 00:00: MOUTH Medic al 00 EVERYDAY Center AT BEDTIME tiZANidine 2020-0 Yes [facility]KE 1 [facility] (ZANAFLEX[facility] 7-20 TABLET BY [facility] 2 MG tablet 00:00: MOUTH Medic al 00 EVERYDAY Center AT BEDTIME tiZANidine 2020-0 Yes [facility] 1 [facility] (ZANAFLEX[facility] 7-20 TABLET BY [facility] 2 MG tablet 00:00: MOUTH Medic al 00 EVERYDAY Center AT BEDTIME tizanidine 2020-0 Yes TAKE 1 [facility] (ZANAFLEX) 7-20 TABLET BY [facility] 2 MG tablet 00:00: MOUTH of 00 EVERYDAY Medicin AT BEDTIME e tizanidine 2020-0 Yes TAKE 1 [facility] (ZANAFLEX) 7-20 TABLET BY [facility] 2 MG tablet 00:00: MOUTH of 00 EVERYDAY Medicin AT BEDTIME e tizanidine 2020-0 Yes TAKE 1 [facility] (ZANAFLEX) 7-20 TABLET BY [facility] 2 MG tablet 00:00: MOUTH of 00 EVERYDAY Medicin AT BEDTIME e B 2020-0 Yes Take by [facility] Complex-Bio 6-24 mouth. [facility]ian [facility] tin-FA 16:05: of (B-COMPLEX 02 Medicin OR) e Glucosamine 2020-0 Yes Take by [facility] HCl 1000 MG 6-24 mouth. [facility] TABS 16:05: of 02 Medicin e Chondroitin 2020-0 Yes Take by [facility] Sulfate A 6-24 mouth. [facility] (CHONDROITI 16:05: of N SULFATE 02 Medicin OR) e Coenzyme 2020-0 Yes Take by [facility] Q10 (CO Q 6-24 mouth. College 10) 100 MG 16:05: of CAPS 02 Medicin e APPLE CIDER 2020-0 Yes Take by [facility] VINEGAR OR 6-24 mouth. [place] 16:05: of 02 Medicin e ALFALFA OR 2020-0 Yes Take by [facility] 6-24 mouth. [place] 16:05: of 02 Medicin e Fexofenadin 2020-0 Yes Take by [facility] e HCl 6-24 mouth. [place] (SHIRIN 16:05: of OR) 02 Medicin e Capsicum, 2020-0 Yes Take by [facility] [place], 6-24 mouth. [place] (CAYENNE 16:05: of OR) 02 Medicin e BIOTIN OR 2020-0 Yes Take by [facility] 6-24 mouth. [place] 16:05: of 02 Medicin e Cholecalcif 2020-0 Yes Take by [facility] [place] 6-24 mouth. [place] (VITAMIN 16:05: of D-3 OR) 02 Medicin e ACAI OR 2020-0 Yes Take by [facility] 6-24 mouth. [place] 16:05: of 02 Medicin e Bakari, 2020-0 Yes Take by [facility] Zingiber -24 mouth. [place] officinal 16:05: of , (BAKARI 02 Medicin ROOT OR) e SENNA OR 2020-0 Yes Take by [place] 6-24 mouth. [place] 16:05: of 02 Medicin e GRAPE SEED 2020-0 Yes Take by [facility] EXTRACT OR -24 mouth. [place] 16:05: of 02 Medicin e HAWTHORN OR 2020-0 Yes Take by [facility] 6-24 mouth. [place] 16:05: of 02 Medicin e ketorolac 2020-0 Yes 1[drp] 1 Drop [facility] (ACULAR) 11-14 four times Colle [facility] 0.5 % 16:05: daily. of ophthalmic 02 Medicin solution e prednisoLON 2020-0 Yes daily. [facility] E acetate 11-14 [place] 0.125 % 16:05: of ophthalmic 02 Medicin suspension e Multiple 2020-0 2020- No Take by [facility] r Vitamins-Mi 6-24 06-24 mouth. [facility] nerals 16:04: 00:00 of (MULTIVITAL 33 :00 Medicin OR) e B 2020-0 Yes Take by [facility] Complex-Bio 6-08 mouth. Vivian e tin-FA 18:43: of (B-COMPLEX 30 Medicin OR) e Glucosamine 2020-0 Yes Take by [facility] HCl 1000 MG 6-08 mouth. [facility]ian e TABS 18:43: of 30 Medicin e Chondroitin 2020-0 Yes Take by [facility] Sulfate A 6-08 mouth. [place] (CHONDROITI 18:43: of N SULFATE 30 Medicin OR) e Coenzyme 2020-0 Yes Take by [facility] Q10 (CO Q 6-08 mouth. College 10) 100 MG 18:43: of CAPS 30 Medicin e APPLE CIDER 2020-0 Yes Take by [facility] VINEGAR OR 6-08 mouth. [place] 18:43: of 30 Medicin e ALFALFA OR 2020-0 Yes Take by [facility] 6-08 mouth. [place] 18:43: of 30 Medicin e Fexofenadin 2020-0 Yes Take by [facility] e HCl 6-08 mouth. [place] (SHIRIN 18:43: of OR) 30 Medicin e Capsicum, 2020-0 Yes Take by [facility] [place], 6-08 mouth. [place] (CAYENNE 18:43: of OR) 30 Medicin e BIOTIN OR 2020-0 Yes Take by [facility] 6-08 mouth. [place] 18:43: of 30 Medicin e Cholecalcif 2020-0 Yes Take by [facility] [place] 6-08 mouth. [place] (VITAMIN 18:43: of D-3 OR) 30 Medicin e ACAI OR 2020-0 Yes Take by [facility] 6-08 mouth. [place] 18:43: of 30 Medicin e Bakari, 2020-0 Yes Take by [facility] Zingiber 6-08 mouth. [place] officinal 18:43: of , (BAKARI 30 Medicin ROOT OR) e SENNA OR 2020-0 Yes Take by [facility] 6-08 mouth. [place] 18:43: of 30 Medicin e GRAPE SEED 2020-0 Yes Take by [facility] EXTRACT OR 6-08 mouth. [place] 18:43: of 30 Medicin e HAWTHORN OR 2020-0 Yes Take by [facility] 6-08 mouth. [place] 18:43: of 30 Medicin e ketorolac 2020-0 Yes 1[drp] 1 Drop [facility] (ACULAR) 6- four times [facility] 0.5 % 18:43: daily. of ophthalmic 30 Medicin solution e prednisoLON 2020-0 Yes daily. [facility] E acetate 10-29 [place] 0.125 % 18:43: of ophthalmic 30 Medicin suspension e valsartan-h 2020-0 Yes [id number] TAKE 1 [facility] ydrochlorot 6-08 TABLET BY [facility] hiazide 00:00: MOUTH of (DIOVAN-HCT 00 EVERY DAY Med icin ) 160-12.5 FOR BLOOD e MG per PRESSURE tablet furosemide 2020-0 Yes [id number] 20mg Take 1 Tab [facility] (LASIX) 20 6-08 by mouth [facility]le [facility] MG tablet 00:00: daily. of 00 (for blood Medicin pressure e and leg swelling) valsartan-h 2020-0 Yes [id number] TAKE 1 [facility] ydrochlorot 6-08 TABLET BY [facility] hiazide 00:00: MOUTH of (DIOVAN-HCT 00 EVERY DAY Med icin ) 160-12.5 FOR BLOOD e MG per PRESSURE tablet furosemide 2020-0 Yes [id number] 20mg Take 1 Tab [facility] (LASIX) 20 6-08 by mouth Colle ge MG tablet 00:00: daily. of 00 (for blood Medicin pressure e and leg swelling) furosemide 2020-0 Yes [id number] 20mg Take 1 Tab [facility] (LASIX) 20 6-08 by mouth Colle ge MG tablet 00:00: daily. of 00 (for blood Medicin pressure e and leg swelling) furosemide 2020-0 Yes [id number] 20mg Take 1 Tab [place] (LASIX) 20 6-08 by mouth Colle ge MG tablet 00:00: daily. of 00 (for blood Medicin pressure e and leg swelling) furosemide 2020-0 Yes [id number] 20mg Take 1 Tab [facility] (LASIX) 20 6-08 by mouth Colle ge MG tablet 00:00: daily. of 00 (for blood Medicin pressure e and leg swelling) furosemide 2020-0 Yes [id number] 20mg Take 1 Tab [facility] (LASIX) 20 6-08 by mouth Colle ge MG tablet 00:00: daily. of 00 (for blood Medicin pressure e and leg swelling) furosemide 2020-0 Yes [id number] 20mg Take 1 Tab [facility] (LASIX) 20 6-08 by mouth Colle ge MG tablet 00:00: daily. of 00 (for blood Medicin pressure e and leg swelling) furosemide 2020-0 Yes [id number] 20mg Take 1 Tab [facility] (LASIX) 20 6-08 by mouth Colle ge MG tablet 00:00: daily. of 00 (for blood Medicin pressure e and leg swelling) furosemide 2020-0 Yes [id number] 20mg Take 1 Tab [facility] (LASIX) 20 6-08 by mouth Colle ge MG tablet 00:00: daily. of 00 (for blood Medicin pressure e and leg swelling) furosemide 2020-0 Yes [id number] 20mg Take 1 Tab [facility] (LASIX) 20 6-08 by mouth Colle ge MG tablet 00:00: daily. of 00 (for blood Medicin pressure e and leg swelling) furosemide 2020-0 Yes [id number] 20mg Take 1 Tab [place] (LASIX) 20 6-08 by mouth [facility] MG tablet 00:00: daily. of 00 (for blood Medicin pressure e and leg swelling) folic acid 2020-0 Yes QD daily [facility] (FOLVITE[facility] 5-15 [facility] 800 MCG 00:00: Medical tablet 00 Center folic acid 2020-0 Yes QD daily [facility] (FOLVITE[facility] 5-15 [facility] 800 MCG 00:00: Medical tablet 00 Center folic acid 2020-0 Yes QD daily [facility] (FOLVITE[facility] 5-15 [facility] 800 MCG 00:00: Medical tablet 00 Center folic acid 2020-0 Yes QD daily [facility] (FOLVITE[facility] 5-15 [facility] 800 MCG 00:00: Medical tablet 00 Center folic acid 2020-0 Yes QD daily [facility] (FOLVITE[facility] 5-15 [facility] 800 MCG 00:00: Medical tablet 00 Center folic acid 2020-0 Yes [facility] 800 MCG 5-15 College TABS 00:00: of 00 Medicin e Cyanocobala 2020-0 Yes [facility] min (B-12) 5-15 [facility] 2000 MCG 00:00: of TABS 00 Medicin e folic acid 2020-0 Yes [facility] 800 MCG 5-15 College TABS 00:00: of 00 Medicin e Cyanocobala 2020-0 Yes [facility] min (B-12) 5-15 [facility] 2000 MCG 00:00: of TABS 00 Medicin e folic acid 2020-0 Yes [facility] 800 MCG 5-15 College TABS 00:00: of 00 Medicin e Cyanocobala 2020-0 Yes [facility] min (B-12) 5-15 [facility] 2000 MCG 00:00: of TABS 00 Medicin e folic acid 2020-0 Yes [facility] 800 MCG 5-15 College TABS 00:00: of 00 Medicin e Cyanocobala 2020-0 Yes [facility] min (B-12) 5-15 [facility] 2000 MCG 00:00: of TABS 00 Medicin e folic acid 2020-0 Yes [facility] 800 MCG 5-15 College TABS 00:00: of 00 Medicin e Cyanocobala 2020-0 Yes [facility] min (B-12) 5-15 [facility] 2000 MCG 00:00: of TABS 00 Medicin e folic acid 2020-0 Yes [facility] 800 MCG 5-15 College TABS 00:00: of 00 Medicin e Cyanocobala 2020-0 Yes [facility] min (B-12) 5-15 [facility] 2000 MCG 00:00: of TABS 00 Medicin e folic acid 2020-0 Yes [facility] 800 MCG 5-15 College TABS 00:00: of 00 Medicin e Cyanocobala 2020-0 Yes [facility] min (B-12) 5-15 [facility] 2000 MCG 00:00: of TABS 00 Medicin e folic acid 2020-0 Yes [facility] 800 MCG 5-15 College TABS 00:00: of 00 Medicin e Cyanocobala 2020-0 Yes [facility] min (B-12) 5-15 [facility] 2000 MCG 00:00: of TABS 00 Medicin e folic acid 2020-0 Yes [facility] 800 MCG 5-15 College TABS 00:00: of 00 Medicin e Cyanocobala 2020-0 Yes [facility] min (B-12) 5-15 [facility] 2000 MCG 00:00: of TABS 00 Medicin e folic acid 2020-0 Yes [facility] 800 MCG 5-15 College TABS 00:00: of 00 Medicin e Cyanocobala 2020-0 Yes [facility] min (B-12) 5-15 [facility] 2000 MCG 00:00: of TABS 00 Medicin e folic acid 2020-0 Yes [facility] 800 MCG 5-15 College TABS 00:00: of 00 Medicin e Cyanocobala 2020-0 Yes [facility] min (B-12) 5-15 College 2000 MCG 00:00: of TABS 00 Medicin e folic acid 2020-0 Yes [facility] 800 MCG 5-15 College TABS 00:00: of 00 Medicin e Cyanocobala 2020-0 Yes [facility] min (B-12) 5-15 [facility] 2000 MCG 00:00: of TABS 00 Medicin e folic acid 2020-0 Yes [facility] 800 MCG 5-15 [facility] TABS 00:00: of 00 Medicin e Cyanocobala 2020-0 Yes [facility] (B-12) 5-15 [facility] 2000 MCG 00:00: of TABS 00 Medicin e folic acid 2020-0 Yes [facility] 800 MCG 5-15 College TABS 00:00: of 00 Medicin e Cyanocobala 2020-0 Yes [facility] min (B-12) 5-15 [facility] 2000 MCG 00:00: of TABS 00 Medicin e folic acid 2020-0 Yes [facility] 800 MCG 5-15 College TABS 00:00: of 00 Medicin e Cyanocobala 2020-0 Yes [facility] min (B-12) 5-15 [facility] 2000 MCG 00:00: of TABS 00 Medicin e folic acid 2020-0 Yes [facility] 800 MCG 5-15 College TABS 00:00: of 00 Medicin e Cyanocobala 2020-0 Yes [facility] min (B-12) 5-15 College 2000 MCG 00:00: of TABS 00 Medicin e azathioprin 2020-0 Yes [id number] 125mg Take 2.5 [facility] e (IMURAN) 5-13 Tabs by [facility] e 50 MG 00:00: mouth of tablet 00 daily. Medicin PLEASE e NOTE DOSE INCREASE TO 125 MG DAILY-DISR [facility]ARD PRIOR PRESCRIPTI ONS azathioprin 2020-0 Yes [id number] 125mg Take 2.5 [facility] e (IMURAN) 5-13 Tabs by [facility] e 50 MG 00:00: mouth of tablet 00 daily. Medicin PLEASE e NOTE DOSE INCREASE TO 125 MG DAILY-DISR EGARD PRIOR PRESCRIPTI ONS azathioprin 2020-0 2020- No [id number] 125mg Take 2.5 [facility] e (IMURAN) 5-13 10-14 Tabs by [facility]le [facility] 50 MG 00:00: 00:00 mouth of tablet 00 :00 daily. Medicin PLEASE e NOTE DOSE INCREASE TO 125 MG DAILY-DISR EGARD PRIOR PRESCRIPTI ONS azathioprin 2020-0 2020- No [id number] 125mg Take 2.5 [facility] (IMURAN) 5-13 10-14 Tabs by [facility] 50 MG 00:00: 00:00 mouth of tablet 00 :00 daily. Medicin PLEASE e NOTE DOSE INCREASE TO 125 MG DAILY-DISR EGARD PRIOR PRESCRIPTI ONS B 2020-0 Yes Take by [facility] Complex-Bio 5-12 mouth. Colleg e tin-FA 16:20: of (B-COMPLEX 29 Medicin OR) e Glucosamine 2020-0 Yes Take by [facility] HCl 1000 MG 5-12 mouth. [facility] e TABS 16:20: of 29 Medicin e Chondroitin 2020-0 Yes Take by [facility] Sulfate A 5-12 mouth. College (CHONDROITI 16:20: of N SULFATE 29 Medicin OR) e Coenzyme 2020-0 Yes Take by [facility] Q10 (CO Q 5-12 mouth. College 10) 100 MG 16:20: of CAPS 29 Medicin e Multiple 2020-0 Yes Take by [facility] Vitamins-Mi 5-12 mouth. Colleg e nerals 16:20: of (MULTIVITAL 29 Medicin OR) e APPLE CIDER 2020-0 Yes Take by [facility] VINEGAR OR 5-12 mouth. [place] 16:20: of 29 Medicin e ALFALFA OR 2020-0 Yes Take by [facility] 5-12 mouth. [place] 16:20: of 29 Medicin e Fexofenadin 2020-0 Yes Take by [facility] HCl 5-12 mouth. [place] (SHIRIN 16:20: of OR) 29 Medicin e Capsicum, 2020-0 Yes Take by [facility] [place], 5-12 mouth. [place] (CAYENNE 16:20: of OR) 29 Medicin e BIOTIN OR 2020-0 Yes Take by [facility] 5-12 mouth. [place] 16:20: of 29 Medicin e Cholecalcif 2020-0 Yes Take by [facility] rolanda 5-12 mouth. [place] (VITAMIN 16:20: of D-3 OR) 29 Medicin e ACAI OR 2020-0 Yes Take by [facility] 5-12 mouth. [place] 16:20: of 29 Medicin e Bakari, 2020-0 Yes Take by [facility] Zingiber 5-12 mouth. [place] officinal 16:20: of , (BAKARI 29 Medicin ROOT OR) e SENNA OR 2020-0 Yes Take by [facility] 5-12 mouth. [place] 16:20: of 29 Medicin e GRAPE SEED 2020-0 Yes Take by [facility] EXTRACT OR 5-12 mouth. [place] 16:20: of 29 Medicin e HAWTHORN OR 2020-0 Yes Take by [facility] 5-12 mouth. [place] 16:20: of 29 Medicin e ketorolac 2020-0 Yes 1[drp] 1 Drop [facility] (ACULAR) 5-12 four times [facility] 0.5 % 16:20: daily. of ophthalmic 29 Medicin solution e prednisoLON 2020-0 Yes daily. [facility] E acetate 5-12 [place] 0.125 % 16:20: of ophthalmic 29 Medicin suspension e Multiple 2020-0 Yes Take by [facility] Vitamins-Mi 5-12 mouth. Colleg e nerals 16:20: of (MULTIVITAL 29 Medicin OR) e Biotin 1000 2020-0 2020- No Take by [facility] TABS 5-12 05-12 mouth. [place] 16:20: 00:00 of 11 :00 Medicin e NIACIN OR 2020-0 2020- No Take by [facility] 5-12 05-12 mouth. College 16:20: 00:00 of 11 :00 Medicin e azathioprin 2020-0 Yes 100mg Take 2 [facility] (IMURAN) 5-12 Tabs by Colleg e 50 MG 00:00: mouth of tablet 00 daily. Medicin e AZATHIOPRIN 2020-0 Yes [facility] OR 10-02 [facility] 00:00: of 00 Medicin e AZATHIOPRIN 2020-0 Yes [facility] E OR 10-02 College 00:00: of 00 Medicin e AZATHIOPRIN 2020-0 Yes [facility] E OR 10-02 [facility] 00:00: of 00 Medicin e AZATHIOPRIN 2020-0 Yes [facility] E OR 10-02 College 00:00: of 00 Medicin e AZATHIOPRIN 2020-0 2020- No [facility] OR 10-02 [facility] 00:00: 00:00 of 00 :00 Medicin e valsartan-h 2019-0 Yes [id number] TAKE 1 [facility] ydrochlorot 4-06 TABLET BY [facility] hiazide 00:00: MOUTH of (DIOVAN-HCT 00 EVERY DAY Med icin ) 160-12.5 FOR BLOOD e MG per PRESSURE tablet furosemide 2019-0 Yes [id number] 20mg Take 1 Tab [facility] (LASIX) 20 4-06 by mouth [facility] MG tablet 00:00: daily. of 00 (for blood Medicin pressure e and leg swelling) valsartan-h 2019-0 2020- No [id number] TAKE 1 [facility] ydrochlorot 4-06 06-08 TABLET BY Co llege hiazide 00:00: 00:00 MOUTH of (DIOVAN-HCT 00 :00 EVERY DAY Med icin ) 160-12.5 FOR BLOOD e MG per PRESSURE tablet furosemide 2019-0 2020- No [id number] 20mg Take 1 Tab [facility] (LASIX) 20 4-06 06-08 by mouth [facility] MG tablet 00:00: 00:00 daily. of 00 :00 (for blood Medicin pressure e and leg swelling) azathioprin 2020-0 Yes [id number] Take 1.5 [facility] (IMURAN) 1-13 pills [facility] 50 MG 00:00: daily of tablet 00 Medicin e tizanidine 2019-0 Yes TAKE 1 [facility] (ZANAFLEX) 1-13 TABLET BY [facility] 2 MG tablet 00:00: MOUTH of 00 EVERYDAY Medicin AT BEDTIME e tizanidine 2019-0 Yes TAKE 1 [facility] (ZANAFLEX) 1-13 TABLET BY [facility] 2 MG tablet 00:00: MOUTH of 00 EVERYDAY Medicin AT BEDTIME e tizanidine 2019-0 Yes TAKE 1 [facility] (ZANAFLEX) 1-13 TABLET BY [facility] 2 MG tablet 00:00: MOUTH of 00 EVERYDAY Medicin AT BEDTIME e B 2018-05 Yes Take by [facility] Complex-Bio 0-15 mouth. Vivian collins tin-FA 16:14: of (B-COMPLEX 10 Medicin OR) e Glucosamine 2018-05 Yes Take by [facility] HCl 1000 MG 0-15 mouth. [facility] e TABS 16:14: of 10 Medicin e Chondroitin 2018-05 Yes Take by [facility] Sulfate A 0-15 mouth. [place] (CHONDROITI 16:14: of N SULFATE 10 Medicin OR) e Coenzyme 2018-05 Yes Take by [facility] Q10 (CO Q 0-15 mouth. College 10) 100 MG 16:14: of CAPS 10 Medicin e Multiple 2018-05 Yes Take by [facility] Vitamins-Mi 0-[facility] of (MULTIVITAL 10 Medicin OR) e APPLE CIDER 2018-05 Yes Take by [facility] VINEGAR OR 0-15 mouth. [place] 16:14: of 10 Medicin e ALFALFA OR 2018-05 Yes Take by [facility] 0-15 mouth. [place] 16:14: of 10 Medicin e Biotin 1000 2018-05 Yes Take by [facility] MCG TABS 0-15 mouth. [place] 16:14: of 10 Medicin e Fexofenadin 2018-05 Yes Take by [facility] e HCl 0-15 mouth. [place] (SHIRIN 16:14: of OR) 10 Medicin e Capsicum, 2018-05 Yes Take by [facility] [place], 0-15 mouth. [place] (CAYENNE 16:14: of OR) 10 Medicin e BIOTIN OR 2018-05 Yes Take by [facility] 0-15 mouth. [place] 16:14: of 10 Medicin e Cholecalcif 2018-05 Yes Take by [facility] rolanda 0-15 mouth. [place] (VITAMIN 16:14: of D-3 OR) 10 Medicin e ACAI OR 2018-05 Yes Take by [facility] 0-15 mouth. [place] 16:14: of 10 Medicin e Bakari, 2018-05 Yes Take by [facility] Zingiber 0-15 mouth. [place] officinalis 16:14: of , (BAKARI 10 Medicin ROOT OR) e SENNA OR 2018-05 Yes Take by [facility] 0-15 mouth. [place] 16:14: of 10 Medicin e GRAPE SEED 2018-05 Yes Take by [facility] EXTRACT OR 0-15 mouth. [place] 16:14: of 10 Medicin e HAWTHORN OR 2018-05 Yes Take by [facility] 0-15 mouth. [place] 16:14: of 10 Medicin e NIACIN OR 2018-05 Yes Take by [facility] 0-15 mouth. [place] 16:14: of 10 Medicin e ketorolac 2018-05 Yes 1[drp] 1 Drop [facility] (ACULAR) 0-15 four times [facility] 0.5 % 16:14: daily. of ophthalmic 10 Medicin solution e prednisoLON 2018-05 Yes daily. [facility] E acetate 0-15 [facility] 0.125 % 16:14: of ophthalmic 10 Medicin suspension e azathioprin 2018-05 Yes [id number] Take 1 [facility] e (IMURAN) 0-15 9106 pill daily [facility] 50 MG 00:00: -2 weeks of tablet 00 then 1.5 Medicin after e tizanidine 2018-05 Yes 2mg Take 1 Tab [facility] (ZANAFLEX) 0-15 by mouth [facility] 2 MG tablet 00:00: at of 00 bedtime. Medicin e B Yes Take by [facility] Complex-Bio 9-24 mouth. Colleg e tin-FA 15:40: of (B-COMPLEX 39 Medicin OR) e Glucosamine Yes Take by [facility] HCl 1000 MG 9-24 mouth. [facility] e TABS 15:40: of 39 Medicin e Chondroitin Yes Take by [facility] Sulfate A 9-24 mouth. [place] (CHONDROITI 15:40: of N SULFATE 39 Medicin OR) e Coenzyme Yes Take by [facility] Q10 (CO Q 9-24 mouth. [place] 10) 100 MG 15:40: of CAPS 39 Medicin e Multiple Yes Take by [facility] Vitamins-Mi 9-24 mouth. Colleg e nerals 15:40: of (MULTIVITAL 39 Medicin OR) e APPLE CIDER Yes Take by [facility] VINEGAR OR 9-24 mouth. College 15:40: of 39 Medicin e ALFALFA OR 2018-0 Yes Take by [facility] 9-24 mouth. [place] 15:40: of 39 Medicin e Biotin 1000 2018- Yes Take by [facility] MCG TABS 9-24 mouth. [place] 15:40: of 39 Medicin e Fexofenadin 2018- Yes Take by [facility] e HCl 9-24 mouth. [place] (SHIRIN 15:40: of OR) 39 Medicin e Capsicum, 2019-0 Yes Take by [facility] [place], -24 mouth. [place] (CAYENNE 15:40: of OR) 39 Medicin e BIOTIN OR 2018- Yes Take by [facility] 9-24 mouth. [place] 15:40: of 39 Medicin e Cholecalcif 2018- Yes Take by [facility] rolanda -24 mouth. [place] (VITAMIN 15:40: of D-3 OR) 39 Medicin e ACAI OR Yes Take by [facility] -24 mouth. [place] 15:40: of 39 Medicin e Bakari, 2018- Yes Take by [facility] Zingiber -24 mouth. [place] officinal 15:40: of , (BAKARI 39 Medicin ROOT OR) e SENNA OR Yes Take by [facility] -24 mouth. [place] 15:40: of 39 Medicin e GRAPE SEED Yes Take by [facility] EXTRACT OR -24 mouth. [place] 15:40: of 39 Medicin e HAWTHORN OR Yes Take by [facility] -24 mouth. College 15:40: of 39 Medicin e NIACIN OR 0 Yes Take by [facility] -24 mouth. [place] 15:40: of 39 Medicin e ketorolac 2018-0 Yes 1[drp] 1 Drop [facility] (ACULAR) 02-14 four times [facility] 0.5 % 15:40: daily. of ophthalmic 39 Medicin solution e prednisoLON 2018-0 Yes daily. [facility] E acetate 02-14 [place] 0.125 % 15:40: of ophthalmic 39 Medicin suspension e diltiazem 2018-0 Yes TAKE ONE [facility] (TIAZAC) 7-15 CAPSULE BY [facility] 120 MG SR 00:00: MOUTH of capsule 00 EVERY DAY Medicin e diltiazem [id number] Yes TAKE ONE [facility] (TIAZAC) 7-15 CAPSULE BY [facility] 120 MG SR 00:00: MOUTH of capsule 00 EVERY DAY Medicin e diltiazem 0 Yes TAKE ONE [facility] (TIAZAC) 7-15 CAPSULE BY [facility] 120 MG SR 00:00: MOUTH of capsule 00 EVERY DAY Medicin e diltiazem 0 Yes TAKE ONE [facility] (TIAZAC) 7-15 CAPSULE BY [facility] 120 MG SR 00:00: MOUTH of capsule 00 EVERY DAY Medicin e diltiazem 0 Yes TAKE ONE [facility] (TIAZAC) 7-15 CAPSULE BY [facility] 120 MG SR 00:00: MOUTH of capsule 00 EVERY DAY Medicin e diltiazem 0 Yes TAKE ONE [facility] (TIAZAC) 7-15 CAPSULE BY [facility] 120 MG SR 00:00: MOUTH of capsule 00 EVERY DAY Medicin e diltiazem 0 Yes TAKE ONE [facility] (TIAZAC) 7-15 CAPSULE BY [facility] 120 MG SR 00:00: MOUTH of capsule 00 EVERY DAY Medicin e diltiazem 0 Yes TAKE ONE [facility] (TIAZAC) 7-15 CAPSULE BY [facility] 120 MG SR 00:00: MOUTH of capsule 00 EVERY DAY Medicin e diltiazem 0 Yes TAKE ONE [facility] (TIAZAC) 7-15 CAPSULE BY [facility] 120 MG SR 00:00: MOUTH of capsule 00 EVERY DAY Medicin e diltiazem 0 Yes TAKE ONE [facility] (TIAZAC) 7-15 CAPSULE BY [facility] 120 MG SR 00:00: MOUTH of capsule 00 EVERY DAY Medicin e diltiazem 0 Yes TAKE ONE [facility] (TIAZAC) 7-15 CAPSULE BY [facility] 120 MG SR 00:00: MOUTH of capsule 00 EVERY DAY Medicin e diltiazem 0 Yes TAKE ONE [facility] (TIAZAC) 7-15 CAPSULE BY [facility] 120 MG SR 00:00: MOUTH of capsule 00 EVERY DAY Medicin e diltiazem 0 Yes TAKE ONE [facility] (TIAZAC) 7-15 CAPSULE BY [facility] 120 MG SR 00:00: MOUTH of capsule 00 EVERY DAY Medicin e diltiazem Yes TAKE ONE [facility] (TIAZAC) 7-15 CAPSULE BY [facility] 120 MG SR 00:00: MOUTH of capsule 00 EVERY DAY Medicin e diltiazem 2020- No TAKE ONE [facility] (TIAZAC) 7-15 07-13 CAPSULE BY [facility] 120 MG SR 00:00: 00:00 MOUTH of capsule 00 :00 EVERY DAY Medicin e LINZESS 290 Yes TAKE 1 [facility] MCG CAPS 7-01 CAPSULE BY [facility] 00:00: MOUTH of 00 DAILY Medicin e LINZESS 290 Yes TAKE 1 [facility] MCG CAPS 7-01 CAPSULE BY [facility] 00:00: MOUTH of 00 DAILY Medicin e furosemide Yes [id number] /2 - 1 [facility] (LASIX) 20 5-03 tab daily [facility] MG tablet 00:00: as needed of 00 for leg Medicin swelling e furosemide Yes [id number] 2 - 1 [facility] (LASIX) 20 5-03 tab daily [facility] MG tablet 00:00: as needed of 00 for leg Medicin swelling e halobetasol Yes Apply to [facility] (ULTRAVATE) 4-17 affected [facility] 0.05 % 00:00: area 2 of ointment 00 times Medicin daily to e stubborn areas for up to 2 weeks, may repeat after 3-5 day break halobetasol Yes Apply to [facility] (ULTRAVATE) 4-17 affected [facility] 0.05 % 00:00: area 2 of ointment 00 times Medicin daily to e stubborn areas for up to 2 weeks, may repeat after 3-5 day break halobetasol Yes Apply to [facility] (ULTRAVATE) 4-17 affected [facility] 0.05 % 00:00: area 2 of ointment 00 times Medicin daily to e stubborn areas for up to 2 weeks, may repeat after 3-5 day break halobetasol Yes Apply to [facility] (ULTRAVATE) 4-17 affected [facility] 0.05 % 00:00: area 2 of ointment 00 times Medicin daily to e stubborn areas for up to 2 weeks, may repeat after 3-5 day break halobetasol 2018 Yes Apply to [facility] (ULTRAVATE) 4-17 affected [facility] 0.05 % 00:00: area 2 of ointment 00 times Medicin daily to e stubborn areas for up to 2 weeks, may repeat after 3-5 day break halobetasol 2019 Yes Apply to [facility] (ULTRAVATE) 4-17 affected [facility] 0.05 % 00:00: area 2 of ointment 00 times Medicin daily to e stubborn areas for up to 2 weeks, may repeat after 3-5 day break halobetasol Yes Apply to [facility] (ULTRAVATE) 4-17 affected [facility] 0.05 % 00:00: area 2 of ointment 00 times Medicin daily to e stubborn areas for up to 2 weeks, may repeat after 3-5 day break halobetasol Yes Apply to [facility] (ULTRAVATE) 4-17 affected [facility] 0.05 % 00:00: area 2 of ointment 00 times Medicin daily to e stubborn areas for up to 2 weeks, may repeat after 3-5 day break halobetasol Yes Apply to [facility] (ULTRAVATE) 4-17 affected [facility] 0.05 % 00:00: area 2 of ointment 00 times Medicin daily to e stubborn areas for up to 2 weeks, may repeat after 3-5 day break halobetasol Yes Apply to [facility] (ULTRAVATE) 4-17 affected [facility] 0.05 % 00:00: area 2 of ointment 00 times Medicin daily to e stubborn areas for up to 2 weeks, may repeat after 3-5 day break halobetasol 2020- No Apply to [facility] (ULTRAVATE) 4-17 04-08 affected [facility] 0.05 % 00:00: 00:00 area 2 of ointment 00 :00 times Medicin daily to e stubborn areas for up to 2 weeks, may repeat after 3-5 day break valsartan-h 2018- Yes [id number] TAKE 1 [facility] ydrochlorot 4-09 TABLET BY [facility] hiazide 00:00: MOUTH of (DIOVAN-HCT 00 EVERY DAY Med icin ) 160-12.5 FOR BLOOD e MG per PRESSURE tablet valsartan-h 2019-0 Yes [id number] TAKE 1 [facility] ydrochlorot 4-09 TABLET BY [facility] hiazide 00:00: MOUTH of (DIOVAN-HCT 00 EVERY DAY Med icin ) 160-12.5 FOR BLOOD e MG per PRESSURE tablet Desoximetas 2017-0 Yes [id number] Apply [facility] one 0.25 % 4-06 topically [facility] OINT 00:00: to of 00 affected Medicin area for 2 e to 4 weeks. Desoximetas Yes [id number] Apply [facility] one 0.25 % 4-06 topically [facility] OINT 00:00: to of 00 affected Medicin area for 2 e to 4 weeks. Desoximetas Yes [id number] Apply [facility] one 0.25 % 4-06 topically [facility] OINT 00:00: to of 00 affected Medicin area for 2 e to 4 weeks. Desoximetas Yes [id number] Apply [facility] one 0.25 % 4-06 topically [facility] OINT 00:00: to of 00 affected Medicin area for 2 e to 4 weeks. Desoximetas Yes [id number] Apply [facility] one 0.25 % 4-06 topically [facility] OINT 00:00: to of 00 affected Medicin area for 2 e to 4 weeks. Desoximetas 2017-0 Yes [id number] Apply [facility] one 0.25 % 4-06 topically [facility] OINT 00:00: to of 00 affected Medicin area for 2 e to 4 weeks. Desoximetas 0 Yes [id number] Apply [facility] one 0.25 % 4-06 topically [facility] OINT 00:00: to of 00 affected Medicin area for 2 e to 4 weeks. Desoximetas 2017- Yes [id number] Apply [facility] one 0.25 % 4-06 topically [facility] OINT 00:00: to of 00 affected Medicin area for 2 e to 4 weeks. Desoximetas 2017- Yes [id number] Apply [facility] one 0.25 % 4-06 topically [facility] OINT 00:00: to of 00 affected Medicin area for 2 e to 4 weeks. Desoximetas 2018-0 Yes [id number] Apply [facility] one 0.25 % 4-06 topically [facility] OINT 00:00: to of 00 affected Medicin area for 2 e to 4 weeks. Desoximetas 2018-0 Yes [id number] Apply [facility] one 0.25 % 4-06 topically [facility] OINT 00:00: to of 00 affected Medicin area for 2 e to 4 weeks. Desoximetas 2017-0 Yes [id number] Apply [facility] one 0.25 % 4-06 topically [facility] OINT 00:00: to of 00 affected Medicin area for 2 e to 4 weeks. Desoximetas 2017-0 Yes [id number] Apply [facility] one 0.25 % 4-06 topically [facility] OINT 00:00: to of 00 affected Medicin area for 2 e to 4 weeks. Desoximetas 2017-0 Yes [id number] Apply [facility] one 0.25 % 4-06 topically [facility] OINT 00:00: to of 00 affected Medicin area for 2 e to 4 weeks. Desoximetas 2017-0 Yes [id number] Apply [facility] one 0.25 % 4-06 topically [facility] OINT 00:00: to of 00 affected Medicin area for 2 e to 4 weeks. Desoximetas 2017-0 Yes [id number] Apply [facility] one 0.25 % 4-06 topically [facility] OINT 00:00: to of 00 affected Medicin area for 2 e to 4 weeks. Desoximetas 0 2020- No [id number] Apply [facility] one 0.25 % 4-06 11-30 topically [facility] OINT 00:00: 00:00 to of 00 :00 affected Medicin area for 2 e to 4 weeks. diflupredna 2014- Yes 1[drp] Place 1 [facility] 2-22 Drop into [facility] (DUREZOL) 00:00: the right of 0.05 % 00 eye four Medicin ophthalmic times e emulsion daily. diflupredna 2014- Yes 1[drp] Place 1 [facility] 2-22 Drop into [facility] (DUREZOL) 00:00: the right of 0.05 % 00 eye four Medicin ophthalmic times e emulsion daily. diflupredna 2014-05 Yes 1[drp] Place 1 [facility] 2-22 Drop into [facility] (DUREZOL) 00:00: the right of 0.05 % 00 eye four Medicin ophthalmic times e emulsion daily. diflupredna 2014-05 Yes 1[drp] Place 1 [facility] 2-22 Drop into [facility] (DUREZOL) 00:00: the right of 0.05 % 00 eye four Medicin ophthalmic times e emulsion daily. diflupredna 2014-05 Yes 1[drp] Place 1 [facility] 2-22 Drop into [facility] (DUREZOL) 00:00: the right of 0.05 % 00 eye four Medicin ophthalmic times e emulsion daily. diflupredna 2014-05 Yes 1[drp] Place 1 [facility] 2-22 Drop into [facility] (DUREZOL) 00:00: the right of 0.05 % 00 eye four Medicin ophthalmic times e emulsion daily. diflupredna 2014-05 Yes 1[drp] Place 1 [facility] 2-22 Drop into [facility] (DUREZOL) 00:00: the right of 0.05 % 00 eye four Medicin ophthalmic times e emulsion daily. diflupredna 2014-05 Yes 1[drp] Place 1 [facility] 2-22 Drop into [facility] (DUREZOL) 00:00: the right of 0.05 % 00 eye four Medicin ophthalmic times e emulsion daily. diflupredna 2014-05 Yes 1[drp] Place 1 [facility] 2-22 Drop into [facility] (DUREZOL) 00:00: the right of 0.05 % 00 eye four Medicin ophthalmic times e emulsion daily. diflupredna 2014-05 Yes 1[drp] Place 1 [facility] 2-22 Drop into [facility] (DUREZOL) 00:00: the right of 0.05 % 00 eye four Medicin ophthalmic times e emulsion daily. diflupredna 2014-05 Yes 1[drp] Place 1 [facility] 2-22 Drop into [facility] (DUREZOL) 00:00: the right of 0.05 % 00 eye four Medicin ophthalmic times e emulsion daily. diflupredna 2014-05 Yes 1[drp] Place 1 [facility] 2-22 Drop into [facility] (DUREZOL) 00:00: the right of 0.05 % 00 eye four Medicin ophthalmic times e emulsion daily. diflupredna 2014-05 Yes 1[drp] Place 1 [facility] 2-22 Drop into [facility] (DUREZOL) 00:00: the right of 0.05 % 00 eye four Medicin ophthalmic times e emulsion daily. diflupredna 2014-05 Yes 1[drp] Place 1 [facility] 2-22 Drop into [facility] (DUREZOL) 00:00: the right of 0.05 % 00 eye four Medicin ophthalmic times e emulsion daily. diflupredna 2014-05 Yes 1[drp] Place 1 [facility] 2-22 Drop into [facility] (DUREZOL) 00:00: the right of 0.05 % 00 eye four Medicin ophthalmic times e emulsion daily. diflupredna 2014-05 Yes 1[drp] Place 1 [facility] 2-22 Drop into [facility] (DUREZOL) 00:00: the right of 0.05 % 00 eye four Medicin ophthalmic times e emulsion daily. diflupredna 2014-05 Yes 1[drp] Place 1 [facility] 2-22 Drop into [facility] (DUREZOL) 00:00: the right of 0.05 % 00 eye four Medicin ophthalmic times e emulsion daily. diflupredna 2014-05 Yes 1[drp] Place 1 [facility] 2-22 Drop into [facility] (DUREZOL) 00:00: the right of 0.05 % 00 eye four Medicin ophthalmic times e emulsion daily. diflupredna 2014-05 Yes 1[drp] Place 1 [facility] 2-22 Drop into [facility] (DUREZOL) 00:00: the right of 0.05 % 00 eye four Medicin ophthalmic times e emulsion daily. diflupredna 2014-05 Yes 1[drp] Place 1 [facility] 2-22 Drop into [facility] (DUREZOL) 00:00: the right of 0.05 % 00 eye four Medicin ophthalmic times e emulsion daily. diflupredna 2014-05 Yes 1[drp] Place 1 [facility] 2-22 Drop into [facility] (DUREZOL) 00:00: the right of 0.05 % 00 eye four Medicin ophthalmic times e emulsion daily. diflupredna 2014-05 Yes 1[drp] Place 1 [facility] 2-22 Drop into [facility] (DUREZOL) 00:00: the right of 0.05 % 00 eye four Medicin ophthalmic times e emulsion daily. diflupredna 2014-05 Yes 1[drp] Place 1 [facility] 2-22 Drop into [facility] (DUREZOL) 00:00: the right of 0.05 % 00 eye four Medicin ophthalmic times e emulsion daily. acyclovir Yes [id number] 400mg Take 1 Tab [facility] (ZOVIRAX) 3-18 by mouth 5 [facility] 400 MG 00:00: times of tablet 00 daily. Medicin e acyclovir Yes [id number] 400mg Take 1 Tab [facility] (ZOVIRAX) 3-18 by mouth 5 [facility] 400 MG 00:00: times of tablet 00 daily. Medicin e acyclovir Yes [id number] 400mg Take 1 Tab [facility] (ZOVIRAX) 3-18 by mouth 5 [facility] 400 MG 00:00: times of tablet 00 daily. Medicin e acyclovir Yes [id number] 400mg Take 1 Tab [facility] (ZOVIRAX) 3-18 by mouth 5 [facility] 400 MG 00:00: times of tablet 00 daily. Medicin e acyclovir Yes [id number] 400mg Take 1 Tab [facility] (ZOVIRAX) 3-18 by mouth 5 [facility] 400 MG 00:00: times of tablet 00 daily. Medicin e acyclovir Yes [id number] 400mg Take 1 Tab [facility] (ZOVIRAX) 3-18 by mouth 5 [facility] 400 MG 00:00: times of tablet 00 daily. Medicin e acyclovir Yes [id number] 400mg Take 1 Tab [facility] (ZOVIRAX) 3-18 by mouth 5 [facility] 400 MG 00:00: times of tablet 00 daily. Medicin e acyclovir Yes [id number] 400mg Take 1 Tab [facility] (ZOVIRAX) 3-18 by mouth 5 [facility] 400 MG 00:00: times of tablet 00 daily. Medicin e acyclovir Yes [id number] 400mg Take 1 Tab [facility] (ZOVIRAX) 3-18 by mouth 5 [facility] 400 MG 00:00: times of tablet 00 daily. Medicin e acyclovir Yes [id number] 400mg Take 1 Tab [facility] (ZOVIRAX) 3-18 by mouth 5 [facility] 400 MG 00:00: times of tablet 00 daily. Medicin e acyclovir Yes [id number] 400mg Take 1 Tab [facility] (ZOVIRAX) 3-18 by mouth 5 [facility] 400 MG 00:00: times of tablet 00 daily. Medicin e acyclovir Yes [id number] 400mg Take 1 Tab [facility] (ZOVIRAX) 3-18 by mouth 5 [facility] 400 MG 00:00: times of tablet 00 daily. Medicin e acyclovir Yes [id number] 400mg Take 1 Tab [facility] (ZOVIRAX) 3-18 by mouth 5 [facility] 400 MG 00:00: times of tablet 00 daily. Medicin e acyclovir Yes [id number] 400mg Take 1 Tab [facility] (ZOVIRAX) 3-18 by mouth 5 [facility] 400 MG 00:00: times of tablet 00 daily. Medicin e acyclovir Yes [id number] 400mg Take 1 Tab [facility] (ZOVIRAX) 3-18 by mouth 5 [facility] 400 MG 00:00: times of tablet 00 daily. Medicin e acyclovir Yes [id number] 400mg Take 1 Tab [facility] (ZOVIRAX) 3-18 by mouth 5 [facility] 400 MG 00:00: times of tablet 00 daily. Medicin e acyclovir Yes [id number] 400mg Take 1 Tab [facility] (ZOVIRAX) 3-18 by mouth 5 [facility] 400 MG 00:00: times of tablet 00 daily. Medicin e acyclovir Yes [id number] 400mg Take 1 Tab [facility] (ZOVIRAX) 3-18 by mouth 5 [facility] 400 MG 00:00: times of tablet 00 daily. Medicin e acyclovir Yes [id number] 400mg Take 1 Tab [facility] (ZOVIRAX) 3-18 by mouth 5 [facility] 400 MG 00:00: times of tablet 00 daily. Medicin e acyclovir Yes [id number] 400mg Take 1 Tab [facility] (ZOVIRAX) 3-18 by mouth 5 [facility] 400 MG 00:00: times of tablet 00 daily. Medicin e acyclovir Yes [id number] 400mg Take 1 Tab [facility] (ZOVIRAX) 3-18 by mouth 5 [facility] 400 MG 00:00: times of tablet 00 daily. Medicin e acyclovir Yes [id number] 400mg Take 1 Tab [facility] (ZOVIRAX) 3-18 by mouth 5 [facility] 400 MG 00:00: times of tablet 00 daily. Medicin e acyclovir 2022- No [id number] 400mg Take 1 Tab [facility] (ZOVIRAX) 3-18 06-15 by mouth 5 [facility] 400 MG 00:00: 00:00 times of tablet 00 :00 daily. Medicin e azaTHIOprin azaTHIOprin No azaTHIOpri e 100 MG e 100 MG ne 100 MG Acyclovir Acyclovir No 1{capsu TID Acyclovir 200 MG 200 MG le} 200 MG Furosemide Furosemide No 1{table QD Furosemide 20 MG 20 MG t} 20 MG Apple Cider Apple Cider No Apple Vinegar Vinegar Cider Vinegar Bakari Root Bakari Root No Bakari 550 MG 550 MG Root 550 MG tiZANidine tiZANidine No 1{table TID tiZANidine HCl 2 MG HCl 2 MG t_as_ne HCl 2 MG eded} Magnesium Magnesium No 2{table QD Magnesium 400 MG 400 MG ts_with 400 MG _a_meal } Probiotic - Probiotic - No Probiotic - Co Q 10 100 Co Q 10 100 No Co Q 10 MG MG 100 MG amLODIPine amLODIPine No 1{table QD amLODIPine Besylate 10 Besylate 10 t} Besylate MG MG 10 MG Grape Seed Grape Seed No Grape Seed Complex - Complex - Complex - Glucosamine Glucosamine No Glucosamin Chondro Chondro e Chondro Complex Complex Complex Selenium Selenium No 1{table QD Selenium 200 MCG 200 MCG t} 200 MCG Triamcinolo Triamcinolo No 1{appli BID Triamcinol ne ne cation_ one Acetonide Acetonide to_affe Acetonide 0.1 % 0.1 % cted_ar 0.1 % ea} Furosemide Furosemide No 1{table QD Furosemide 20 MG 20 MG t} 20 MG Acyclovir Acyclovir No 1{capsu TID Acyclovir 200 MG 200 MG le} 200 MG azaTHIOprin azaTHIOprin No azaTHIOpri e 100 MG e 100 MG ne 100 MG Turmeric Turmeric No Turmeric Nifedipine Nifedipine No Nifedipine ER 30 mg ER 30 mg ER 30 mg [place] No [place] cloNIDine cloNIDine No 1{table QD cloNIDine HCl 0.1 MG HCl 0.1 MG t} HCl 0.1 MG Senna Senna No Senna Halobetasol Halobetasol No Halobetaso Cr & Lactic Cr & Lactic l Cr & Ac Cr Ac Cr Lactic Ac Cr Valsartan-h Valsartan-h No 1{table QD Valsartan- ydroCHLOROt ydroCHLOROt t} hydroCHLOR hiazide hiazide Othiazide 320-12.5 MG 320-12.5 MG 320-12.5 MG Vitamin C Vitamin C No 1{table QD Vitamin C 1000 MG 1000 MG t} 1000 MG Vitamin D3 Vitamin D3 No QD Vitamin D3 25 MCG 25 MCG 25 MCG (1000 UT) (1000 UT) (1000 UT) Linzess 290 Linzess 290 No QD Linzess MCG MCG 290 MCG Biotin 5000 Biotin 5000 No 1{table QD Biotin MCG MCG t} 5000 MCG Lajas 500 Lajas 500 No Lajas MG MG 500 MG Vitamin B Vitamin B No Vitamin B 12 12 12 tiZANidine tiZANidine No 1{table TID tiZANidine HCl 2 MG HCl 2 MG t_as_ne HCl 2 MG eded} Grape Seed Grape Seed No Grape Seed Complex - Complex - Complex - Apple Cider Apple Cider No Apple Vinegar Vinegar Cider Vinegar Vitamin C Vitamin C No 1{table QD Vitamin C 1000 MG 1000 MG t} 1000 MG Linzess 290 Linzess 290 No QD Linzess MCG MCG 290 MCG Senna Senna No Senna Selenium Selenium No 1{table QD Selenium 200 MCG 200 MCG t} 200 MCG Lajas 500 Lajas 500 No Lajas MG MG 500 MG Co Q 10 100 Co Q 10 100 No Co Q 10 MG MG 100 MG Furosemide Furosemide No 1{table QD Furosemide 20 MG 20 MG t} 20 MG Acyclovir Acyclovir No 1{capsu TID Acyclovir 200 MG 200 MG le} 200 MG Biotin 5000 Biotin 5000 No 1{table QD Biotin MCG MCG t} 5000 MCG Bakari Root Bakari Root No Bakari 550 MG 550 MG Root 550 MG Halobetasol Halobetasol No Halobetaso Cr & Lactic Cr & Lactic l Cr & Ac Cr Ac Cr Lactic Ac Cr amLODIPine amLODIPine No 1{table QD amLODIPine Besylate 10 Besylate 10 t} Besylate MG MG 10 MG Magnesium Magnesium No 2{table QD Magnesium 400 MG 400 MG ts_with 400 MG _a_meal } [place] No [place] azaTHIOprin azaTHIOprin No azaTHIOpri e 100 MG e 100 MG ne 100 MG Valsartan-h Valsartan-h No 1{table QD Valsartan- ydroCHLOROt ydroCHLOROt t} hydroCHLOR hiazide hiazide Othiazide 320-12.5 MG 320-12.5 MG 320-12.5 MG Turmeric Turmeric No Turmeric Probiotic - Probiotic - No Probiotic - Vitamin D3 Vitamin D3 No QD Vitamin D3 25 MCG 25 MCG 25 MCG (1000 UT) (1000 UT) (1000 UT) Vitamin B Vitamin B No Vitamin B 12 12 12 Nifedipine Nifedipine No Nifedipine ER 30 mg ER 30 mg ER 30 mg Senna Senna No Senna Probiotic - Probiotic - No Probiotic - Vitamin B Vitamin B No Vitamin B 12 12 12 Turmeric Turmeric No Turmeric Magnesium Magnesium No 2{table QD Magnesium 400 MG 400 MG ts_with 400 MG _a_meal } Bakari Root Bakari Root No Bakari 550 MG 550 MG Root 550 MG Grape Seed Grape Seed No Grape Seed Complex - Complex - Complex - Vitamin C Vitamin C No 1{table QD Vitamin C 1000 MG 1000 MG t} 1000 [facility] [place] [facility] Valsartan-h Valsartan-h No 1{table QD Valsartan- ydroCHLOROt ydroCHLOROt t} hydroCHLOR hiazide hiazide Othiazide 320-12.5 MG 320-12.5 MG 320-12.5 MG Biotin 5000 Biotin 5000 No 1{table QD Biotin MCG MCG t} 5000 MCG Selenium Selenium No 1{table QD Selenium 200 MCG 200 MCG t} 200 MCG tiZANidine tiZANidine No 1{table TID tiZANidine HCl 2 MG HCl 2 MG t_as_ne HCl 2 MG eded} Vitamin D3 Vitamin D3 No QD Vitamin D3 25 MCG 25 MCG 25 MCG (1000 UT) (1000 UT) (1000 UT) Apple Cider Apple Cider No Apple Vinegar Vinegar Cider Vinegar Co Q 10 100 Co Q 10 100 No Co Q 10 MG MG 100 MG Nifedipine Nifedipine No Nifedipine ER 30 mg ER 30 mg ER 30 mg Lajas 500 Lajas 500 No Lajas MG MG 500 MG Linzess 290 Linzess 290 No QD Linzess MCG MCG 290 MCG Halobetasol Halobetasol No Halobetaso Cr & Lactic Cr & Lactic l Cr & Ac Cr Ac Cr Lactic Ac Cr amLODIPine amLODIPine No 1{table QD amLODIPine Besylate 10 Besylate 10 t} Besylate MG MG 10 MG Immunizations Ordered Immunization Filled Immunization Date Status Commen ts Source Name Name Influenza Hd 2022-02-16 Completed [facility] Influenza Hd 2022-02-16 Completed [facility] 00:00:00 of Medicine Influenza Hd 2021-04-22 Completed [facility] 00:00:00 of Medicine Influenza Hd 2021-04-22 Completed [facility] 00:00:00 of Medicine Influenza Hd 2021-04-22 Completed [facility] 00:00:00 of Medicine Influenza Hd 2021-04-22 Completed [facility] 00:00:00 of Medicine Influenza Hd 2021-04-22 Completed [facility] 00:00:00 of Medicine Influenza Hd 2021-04-22 Completed [facility] 00:00:00 of Medicine Influenza Hd 2021-04-22 Completed [facility] 00:00:00 of Medicine Pfizer SARS-CoV-2 2020-07-24 Completed [facility] Vaccination 00:00:00 of Medicine Pfizer SARS-CoV-2 2020-07-24 Completed [facility] Vaccination 00:00:00 of Medicine Pfizer SARS-CoV-2 2020-07-24 Completed [facility] Vaccination 00:00:00 of Medicine Pfizer SARS-CoV-2 2020-07-24 Completed [facility] Vaccination 00:00:00 of Medicine Pfizer SARS-CoV-2 2020-07-24 Completed [facility] Vaccination 00:00:00 of Medicine Pfizer SARS-CoV-2 2020-07-24 Completed [facility] Vaccination 00:00:00 of Medicine Pfizer SARS-CoV-2 2020-07-24 Completed [facility] Vaccination 00:00:00 of Medicine Pfizer SARS-CoV-2 2020-07-24 Completed [facility] Vaccination 00:00:00 of Medicine Pfizer SARS-CoV-2 2020-07-24 Completed [facility] [employer] Vaccination 00:00:00 of Medicine Pfizer SARS-CoV-2 2020-07-24 Completed [facility] Vaccination 00:00:00 of Medicine Pfizer SARS-CoV-2 2020-07-24 Completed [facility] [employer] Vaccination 00:00:00 of Medicine Pfizer SARS-CoV-2 2020-07-24 Completed [facility] Vaccination 00:00:00 of Medicine Pfizer SARS-CoV-2 2020-07-03 Completed [facility] Vaccination 00:00:00 of Medicine Pfizer SARS-CoV-2 2020-07-03 Completed [facility] 00:00:00 of Medicine Pfizer SARS-CoV-2 2020-07-03 Completed [facility] Vaccination 00:00:00 of Medicine Pfizer SARS-CoV-2 2020-07-03 Completed [facility]ination 00:00:00 of Medicine Pfizer SARS-CoV-2 2020-07-03 Completed [facility] Vaccination 00:00:00 of Medicine Pfizer SARS-CoV-2 2020-07-03 Completed [facility]ination 00:00:00 of Medicine Pfizer SARS-CoV-2 2020-07-03 Completed [facility] Vaccination 00:00:00 of Medicine Pfizer SARS-CoV-2 2020-07-03 Completed [facility] [employer] [facility] 00:00:00 of Medicine Pfizer SARS-CoV-2 2020-07-03 Completed [facility] Vaccination 00:00:00 of Medicine Pfizer SARS-CoV-2 2020-07-03 Completed [facility]ination 00:00:00 of Medicine Pfizer SARS-CoV-2 2020-07-03 Completed [facility] [employer] [facility] 00:00:00 of Medicine Pfizer SARS-CoV-2 2020-07-03 Completed [facility] Vaccination 00:00:00 of Medicine Zoster Recombinant 2020-02-16 Completed [facility] 00:00:00 of Medicine Influenza Hd 2020-02-16 Completed [facility] 00:00:00 of Medicine Zoster Recombinant 2020-02-16 Completed [facility] 00:00:00 of Medicine Influenza Hd 2020-02-16 Completed [facility] 00:00:00 of Medicine Zoster Recombinant 2020-02-16 Completed [facility] 00[facility]00:00 of Medicine Influenza Hd 2020-02-16 Completed [facility] 00:00:00 of Medicine Zoster Recombinant 2020-02-16 Completed [facility] [employer] 00:00:00 of Medicine Influenza Hd 2020-02-16 Completed [facility] 00:00:00 of Medicine Zoster Recombinant 2020-02-16 Completed [facility] 00:00:00 of Medicine Influenza Hd 2020-02-16 Completed [facility] 00:00:00 of Medicine Zoster Recombinant 2020-02-16 Completed [facility] [employer] 00:00:00 of Medicine Influenza Hd 2020-02-16 Completed [facility] 00:00:00 of Medicine Zoster Recombinant 2020-02-16 Completed [facility] 00:00:00 of Medicine Influenza Hd 2020-02-16 Completed [facility] 00:00:00 of Medicine Zoster Recombinant 2020-02-16 Completed [facility] 00:00:00 of Medicine Influenza Hd 2020-02-16 Completed [facility] 00:00:00 of Medicine Zoster Recombinant 2020-02-16 Completed [facility] 00:00:00 of Medicine Influenza Hd 2020-02-16 Completed [facility] 00:00:00 of Medicine Zoster Recombinant 2020-02-16 Completed [facility] 00:00:00 of Medicine Influenza Hd 2020-02-16 Completed [facility] 00:00:00 of Medicine Zoster Recombinant 2020-02-16 Completed [facility] 00:00:00 of Medicine Influenza Hd 2020-02-16 Completed [facility] 00:00:00 of Medicine Zoster Recombinant 2020-02-16 Completed [facility] 00:00:00 of Medicine Influenza Hd 2020-02-16 Completed [facility] 00:00:00 of Medicine Zoster Recombinant 2020-02-16 Completed [facility] [employer] 00:00:00 of Medicine Influenza Hd 2020-02-16 Completed [facility] 00:00:00 of Medicine Zoster Recombinant 2020-02-16 Completed [facility] [employer] 00:00:00 of Medicine Influenza Hd 2020-02-16 Completed [facility] 00:00:00 of Medicine Zoster Recombinant 2020-02-16 Completed [facility] 00:00:00 of Medicine Influenza Hd 2020-02-16 Completed [facility] 00:00:00 of Medicine Zoster Recombinant 2020-02-16 Completed [facility] 00:00:00 of Medicine Influenza Hd 2020-02-16 Completed [facility] 00:00:00 of Medicine Zoster Recombinant 2020-02-16 Completed [facility] [employer] 00:00:00 of Medicine Influenza Hd 2020-02-16 Completed [facility] 00:00:00 of Medicine Zoster Recombinant 2020-02-16 Completed [facility] [employer] 00:00:00 of Medicine Influenza Hd 2020-02-16 Completed [facility] 00:00:00 of Medicine Zoster Recombinant 2019-12-15 Completed [facility] 00:00:00 of Medicine Zoster Recombinant 2019-12-15 Completed [facility] 00:00:00 of Medicine Zoster Recombinant 2019-12-15 Completed [facility] 00:00:00 of Medicine Zoster Recombinant 2019-12-15 Completed [facility] 00:00:00 of Medicine Zoster Recombinant 2019-12-15 Completed [facility] 00:00:00 of Medicine Zoster Recombinant 2019-12-15 Completed [facility] 00:00:00 of Medicine Zoster Recombinant 2019-12-15 Completed [facility] 00:00:00 of Medicine Zoster Recombinant 2019-12-15 Completed [facility] 00:00:00 of Medicine Zoster Recombinant 2019-12-15 Completed [facility] 00:00:00 of Medicine Zoster Recombinant 2019-12-15 Completed [facility] 00:00:00 of Medicine Zoster Recombinant 2019-12-15 Completed [facility] 00:00:00 of Medicine Zoster Recombinant 2019-12-15 Completed [facility] 00:00:00 of Medicine Zoster Recombinant 2019-12-15 Completed [facility] 00:00:00 of Medicine Zoster Recombinant 2019-12-15 Completed [facility] 00:00:00 of Medicine Zoster Recombinant 2019-12-15 Completed [facility] 00:00:00 of Medicine Zoster Recombinant 2019-12-15 Completed [facility] 00:00:00 of Medicine Zoster Recombinant 2019-12-15 Completed [facility] 00:00:00 of Medicine Zoster Recombinant 2019-12-15 Completed [facility] 00:00:00 of Medicine Influenza Hd 2019-03-07 Completed [facility] 00:00:00 of Medicine Influenza Hd 2019-03-07 Completed [facility] 00:00:00 of Medicine Influenza Hd 2019-03-07 Completed [facility] 00:00:00 of Medicine Influenza Hd 2019-03-07 Completed [facility] 00:00:00 of Medicine Influenza Hd 2019-03-07 Completed [facility] 00:00:00 of Medicine Influenza Hd 2019-03-07 Completed [facility] 00:00:00 of Medicine Influenza Hd 2019-03-07 Completed [facility] 00:00:00 of Medicine Influenza Hd 2019-03-07 Completed [facility] 00:00:00 of Medicine Influenza Hd 2019-03-07 Completed [facility] 00:00:00 of Medicine Influenza Hd 2019-03-07 Completed [facility] 00:00:00 of Medicine Influenza Hd 2019-03-07 Completed [facility] 00:00:00 of Medicine Influenza Hd 2019-03-07 Completed [facility] 00:00:00 of Medicine Influenza Hd 2019-03-07 Completed [facility] 00:00:00 of Medicine Influenza Hd 2019-03-07 Completed [facility] 00:00:00 of Medicine Influenza Hd 2019-03-07 Completed [facility] 00:00:00 of Medicine Influenza Hd 2019-03-07 Completed [facility] 00:00:00 of Medicine Influenza Hd 2019-03-07 Completed [facility] 00:00:00 of Medicine Influenza Hd 2019-03-07 Completed [facility] 00:00:00 of Medicine Influenza Hd 2019-03-07 Completed [facility] 00:00:00 of Medicine Influenza Hd 2019-03-07 Completed [facility] 00:00:00 of Medicine Influenza Hd 2019-03-07 Completed [facility] 00:00:00 of Medicine Influenza Hd 2019-03-07 Completed [facility] 00:00:00 of Medicine Pneumococcal 2016-08-19 Completed [facility] 13-valent Conjugate 00:00:00 of Me dicine Vaccine Pneumococcal 2016-08-19 Completed [facility] 13-valent Conjugate 00:00:00 of Me dicine Vaccine Pneumococcal 2016-08-19 Completed [facility] 13-valent Conjugate 00:00:00 of Me dicine Vaccine Pneumococcal 2016-08-19 Completed [facility] 13-valent Conjugate 00:00:00 of Me dicine Vaccine Pneumococcal 2016-08-19 Completed [facility] 13-valent Conjugate 00:00:00 of Me dicine Vaccine Pneumococcal 2016-08-19 Completed [facility] 13-valent Conjugate 00:00:00 of Me dicine Vaccine Pneumococcal 2016-08-19 Completed [facility] 13-valent Conjugate 00:00:00 of Me dicine Vaccine Pneumococcal 2016-08-19 Completed [facility] 13-valent Conjugate 00:00:00 of Me dicine Vaccine Pneumococcal 2016-08-19 Completed [facility] 13-valent Conjugate 00:00:00 of Me dicine Vaccine Pneumococcal 2016-08-19 Completed [facility] 13-valent Conjugate 00:00:00 of Me dicine Vaccine Pneumococcal 2016-08-19 Completed [facility] 13-valent Conjugate 00:00:00 of Me dicine Vaccine Pneumococcal 2016-08-19 Completed [facility] 13-valent Conjugate 00:00:00 of Me dicine Vaccine Pneumococcal 2016-08-19 Completed [facility] 13-valent Conjugate 00:00:00 of Me dicine Vaccine Pneumococcal 2016-08-19 Completed [facility] 13-valent Conjugate 00:00:00 of Me dicine Vaccine Pneumococcal 2016-08-19 Completed [facility] 13-valent Conjugate 00:00:00 of Me dicine Vaccine Pneumococcal 2016-08-19 Completed [facility] 13-valent Conjugate 00:00:00 of Me dicine Vaccine Pneumococcal 2016-08-19 Completed [facility] 13-valent Conjugate 00:00:00 of Me dicine Vaccine Pneumococcal 2016-08-19 Completed [facility] 13-valent Conjugate 00:00:00 of Me dicine Vaccine Pneumococcal 2016-08-19 Completed [facility] 13-valent Conjugate 00:00:00 of Me dicine Vaccine Pneumococcal 2016-08-19 Completed [facility] 13-valent Conjugate 00:00:00 of Me dicine Vaccine Pneumococcal 2016-08-19 Completed [facility] 13-valent Conjugate 00:00:00 of Me dicine Vaccine Pneumococcal 2016-08-19 Completed [facility] 13-valent Conjugate 00:00:00 of Me dicine Vaccine Pneumococcal 2016-08-19 Completed [facility] 13-valent Conjugate 00:00:00 of Me dicine Vaccine Influenza Hd 2015-02-27 Completed [facility] 00:00:00 of Medicine Pneumococcal 2015-02-27 Completed [facility] Polysaccharide 00:00:00 of Medicin e Influenza Hd 2015-02-27 Completed [facility] 00:00:00 of Medicine Pneumococcal 2015-02-27 Completed [facility] Polysaccharide 00:00:00 of Medicin e Influenza Hd 2015-02-27 Completed [facility] 00:00:00 of Medicine Pneumococcal 2015-02-27 Completed [facility] Polysaccharide 00:00:00 of Medicin e Influenza Hd 2015-02-27 Completed [facility] 00:00:00 of Medicine Pneumococcal 2015-02-27 Completed [facility] Polysaccharide 00:00:00 of Medicin e Influenza Hd 2015-02-27 Completed [facility] 00:00:00 of Medicine Pneumococcal 2015-02-27 Completed [facility] Polysaccharide 00:00:00 of Medicin e Influenza Hd 2015-02-27 Completed [facility] 00:00:00 of Medicine Pneumococcal 2015-02-27 Completed [facility] Polysaccharide 00:00:00 of Medicin e Influenza Hd 2015-02-27 Completed [facility] 00:00:00 of Medicine Pneumococcal 2015-02-27 Completed [facility] Polysaccharide 00:00:00 of Medicin e Influenza Hd 2015-02-27 Completed [facility] 00:00:00 of Medicine Pneumococcal 2015-02-27 Completed [facility] Polysaccharide 00:00:00 of Medicin e Influenza Hd 2015-02-27 Completed [facility] 00:00:00 of Medicine Pneumococcal 2015-02-27 Completed [facility] Polysaccharide 00:00:00 of Medicin e Influenza Hd 2015-02-27 Completed [facility] 00:00:00 of Medicine Pneumococcal 2015-02-27 Completed [facility] Polysaccharide 00:00:00 of Medicin e Influenza Hd 2015-02-27 Completed [facility] 00:00:00 of Medicine Pneumococcal 2015-02-27 Completed [facility] Polysaccharide 00:00:00 of Medicin e Influenza Hd 2015-02-27 Completed [facility] 00:00:00 of Medicine Pneumococcal 2015-02-27 Completed [facility] Polysaccharide 00:00:00 of Medicin e Influenza Hd 2015-02-27 Completed [facility] 00:00:00 of Medicine Pneumococcal 2015-02-27 Completed [facility] Polysaccharide 00:00:00 of Medicin e Influenza Hd 2015-02-27 Completed [facility] 00:00:00 of Medicine Pneumococcal 2015-02-27 Completed [facility] Polysaccharide 00:00:00 of Medicin e Influenza Hd 2015-02-27 Completed [facility] 00:00:00 of Medicine Pneumococcal 2015-02-27 Completed [facility] Polysaccharide 00:00:00 of Medicin e Influenza Hd 2015-02-27 Completed [facility] 00:00:00 of Medicine Pneumococcal 2015-02-27 Completed [facility] Polysaccharide 00:00:00 of Medicin e Influenza Hd 2015-02-27 Completed [facility] 00:00:00 of Medicine Pneumococcal 2015-02-27 Completed [facility] Polysaccharide 00:00:00 of Medicin e Influenza Hd 2015-02-27 Completed [facility] 00:00:00 of Medicine Pneumococcal 2015-02-27 Completed [facility] Polysaccharide 00:00:00 of Medicin e Influenza Hd 2015-02-27 Completed [facility] 00:00:00 of Medicine Pneumococcal 2015-02-27 Completed [facility] Polysaccharide 00:00:00 of Medicin e Influenza Hd 2015-02-27 Completed [facility] 00:00:00 of Medicine Pneumococcal 2015-02-27 Completed [facility] Polysaccharide 00:00:00 of Medicin e Influenza Hd 2015-02-27 Completed [facility] 00:00:00 of Medicine Pneumococcal 2015-02-27 Completed [facility] Polysaccharide 00:00:00 of Medicin e Influenza Hd 2015-02-27 Completed [facility] 00:00:00 of Medicine Pneumococcal 2015-02-27 Completed [facility] Polysaccharide 00:00:00 of Medicin e Influenza Hd 2015-02-27 Completed [facility] 00:00:00 of Medicine Pneumococcal 2015-02-27 Completed [facility] Polysaccharide 00:00:00 of Medicin e Tdap 2014-09-04 Completed [facility] 00:00:00 of Medicine Tdap 2014-09-04 Completed [facility] 00:00:00 of Medicine Tdap 2014-09-04 Completed [facility] 00:00:00 of Medicine Tdap 2014-09-04 Completed [facility] 00:00:00 of Medicine Tdap 2014-09-04 Completed [facility] 00:00:00 of Medicine Tdap 2014-09-04 Completed [facility] 00:00:00 of Medicine Tdap 2014-09-04 Completed [facility] 00:00:00 of Medicine Tdap 2014-09-04 Completed [facility] 00:00:00 of Medicine Tdap 2014-09-04 Completed [facility] [employer] 00:00:00 of Medicine Tdap 2014-09-04 Completed [facility] 00:00:00 of Medicine Tdap 2014-09-04 Completed [facility] 00:00:00 of Medicine Tdap 2014-09-04 Completed [facility] 00:00:00 of Medicine Tdap 2014-09-04 Completed [facility] 00:00:00 of Medicine Tdap 2014-09-04 Completed [facility] [employer] 00:00:00 of Medicine Tdap 2014-09-04 Completed [facility] 00:00:00 of Medicine Tdap 2014-09-04 Completed [facility] 00:00:00 of Medicine Tdap 2014-09-04 Completed [facility] [employer] 00:00:00 of Medicine Tdap 2014-09-04 Completed [facility] 00:00:00 of Medicine Tdap 2014-09-04 Completed [facility] 00:00:00 of Medicine Tdap 2014-09-04 Completed [facility] 00:00:00 of Medicine Tdap 2014-09-04 Completed [facility] 00:00:00 of Medicine Tdap 2014-09-04 Completed [facility] 00:00:00 of Medicine Tdap 2014-09-04 Completed [facility] 00:00:00 of Medicine Influenza (whole) 2013-05-24 Completed [facility] 00:00:00 of Medicine Influenza (whole) 2013-05-24 Completed [facility] 00:00:00 of Medicine Influenza (whole) 2013-05-24 Completed [facility] 00:00:00 of Medicine Influenza (whole) 2013-05-24 Completed [facility] 00:00:00 of Medicine Influenza (whole) 2013-05-24 Completed [facility] [facility] 00[facility]:00 of Medicine Influenza (whole) 2013-05-24 Completed [facility] 00:00:00 of Medicine Influenza (whole) 2013-05-24 Completed [facility] 00:00:00 of Medicine Influenza (whole) 2013-05-24 Completed [facility] 00:00:00 of Medicine Influenza (whole) 2013-05-24 Completed [facility] 00:00:00 of Medicine Influenza (whole) 2013-05-24 Completed [facility] 00:00:00 of Medicine Influenza (whole) 2013-05-24 Completed [facility] 00:00:00 of Medicine Influenza (whole) 2013-05-24 Completed [facility] 00:00:00 of Medicine Influenza (whole) 2013-05-24 Completed [employer] 00:00:00 of Medicine Influenza (whole) 2013-05-24 Completed [employer] 00:00:00 of Medicine Influenza (whole) 2013-05-24 Completed [facility] 00:00:00 of Medicine Influenza (whole) 2013-05-24 Completed [facility] 00:00:00 of Medicine Influenza (whole) 2013-05-24 Completed [facility] 00:00:00 of Medicine Influenza (whole) 2013-05-24 Completed [facility] 00:00:00 of Medicine Influenza (whole) 2013-05-24 Completed [facility] 00:00:00 of Medicine Influenza (whole) 2013-05-24 Completed [facility] 00:00:00 of Medicine Influenza (whole) 2013-05-24 Completed [facility] 00:00:00 of Medicine Influenza (whole) 2013-05-24 Completed [facility] 00:00:00 of Medicine Influenza (whole) 2013-05-24 Completed [employer] 00:00:00 of Medicine Z[employer] Live 2010-07-22 Completed [facility] 00:00:00 of Medicine [employer] Live 2010-07-22 Completed [facility] 00:00:00 of Medicine [employer] Live 2010-07-22 Completed [facility] 00:00:00 of Medicine [employer] Live 2010-07-22 Completed [facility] 00:00:00 of Medicine [employer] 2010-07-22 Completed [employer] [facility] 00:00:00 of Medicine [employer] 2010-07-22 Completed [facility] 00:00:00 of Medicine [employer] 2010-07-22 Completed [facility] 00:00:00 of Medicine [employer] 2010-07-22 Completed [facility] 00:00:00 of Medicine [employer] 2010-07-22 Completed [employer] [facility] 00:00:00 of Medicine [employer] Live 2010-07-22 Completed [facility] 00:00:00 of Medicine [employer] 2010-07-22 Completed [employer] [facility] 00:00:00 of Medicine [employer] 2010-07-22 Completed [employer] [facility] 00:00:00 of Medicine [employer] 2010-07-22 Completed [employer] [facility] 00:00:00 of Medicine [employer] Live 2010-07-22 Completed [facility] 00[facility]00:00 of Medicine [employer] 2010-07-22 Completed [employer] [facility] 00:00:00 of Medicine [employer] 2010-07-22 Completed [employer] [facility] 00:00:00 of Medicine [employer] Live 2010-07-22 Completed [facility] 00:00:00 of Medicine [employer] Live 2010-07-22 Completed [employer] [facility] 00:00:00 of Medicine [employer] Live 2010-07-22 Completed [facility] 00:00:00 of Medicine [employer] 2010-07-22 Completed [employer] [facility] 00:00:00 of Medicine [employer] Live 2010-07-22 Completed [facility] 00:00:00 of Medicine [employer] 2010-07-22 Completed [employer] [facility] 00:00:00 of Medicine [employer] 2010-07-22 Completed [facility] 00:00:00 of Medicine Tetanus 2006-08-03 Completed [facility] 00:00:00 of Medicine Tetanus 2006-08-03 Completed [facility] 00:00:00 of Medicine Tetanus 2006-08-03 Completed [facility] 00:00:00 of Medicine Tetanus 2006-08-03 Completed [facility] 00:00:00 of Medicine Tetanus 2006-08-03 Completed [facility] 00:00:00 of Medicine Tetanus 2006-08-03 Completed [facility] 00:00:00 of Medicine Tetanus 2006-08-03 Completed [facility] 00:00:00 of Medicine Tetanus 2006-08-03 Completed [employer] 00:00:00 of Medicine Tetanus 2006-08-03 Completed [employer] 00:00:00 of Medicine Tetanus 2006-08-03 Completed [employer] 00:00:00 of Medicine Tetanus 2006-08-03 Completed [employer] 00:00:00 of Medicine Tetanus 2006-08-03 Completed [employer] 00:00:00 of Medicine Tetanus 2006-08-03 Completed [facility] 00:00:00 of Medicine Tetanus 2006-08-03 Completed [employer] 00:00:00 of Medicine Tetanus 2006-08-03 Completed [facility] 00:00:00 of Medicine Tetanus 2006-08-03 Completed [employer] 00:00:00 of Medicine Tetanus 2006-08-03 Completed [employer] 00:00:00 of Medicine Tetanus 2006-08-03 Completed [facility] 00:00:00 of Medicine Tetanus 2006-08-03 Completed [employer] 00:00:00 of Medicine Tetanus 2006-08-03 [facility] Tetanus 2006-08-03 Completed [facility] 00:00:00 of Medicine Tetanus 2006-08-03 [facility] Tetanus 2006-08-03 Completed [facility] 00:00:00 of Medicine Tdap 2006-06-24 Completed [facility] 00:00:00 of Medicine Tdap 2006-06-24 Completed [facility] 00:00:00 of Medicine Tdap 2006-06-24 Completed [facility] 00:00:00 of Medicine Tdap 2006-06-24 Completed [facility] 00:00:00 of Medicine Tdap 2006-06-24 Completed [facility] 00:00:00 of Medicine Tdap 2006-06-24 Completed [facility] 00:00:00 of Medicine Tdap 2006-06-24 Completed [facility] 00:00:00 of Medicine Tdap 2006-06-24 Completed [facility] 00:00:00 of Medicine Tdap 2006-06-24 Completed [facility] 00:00:00 of Medicine Tdap 2006-06-24 Completed [facility] 00:00:00 of Medicine Tdap 2006-06-24 Completed [facility] 00:00:00 of Medicine Tdap 2006-06-24 Completed [facility] 00:00:00 of Medicine Tdap 2006-06-24 Completed [facility] 00:00:00 of Medicine Tdap 2006-06-24 Completed [facility] 00:00:00 of Medicine Tdap 2006-06-24 Completed [facility] 00:00:00 of Medicine Tdap 2006-06-24 Completed [facility] 00:00:00 of Medicine Tdap 2006-06-24 Completed [facility] 00:00:00 of Medicine Tdap 2006-06-24 Completed [facility] 00:00:00 of Medicine Tdap 2006-06-24 Completed [facility] 00:00:00 of Medicine Tdap 2006-06-24 Completed [facility] 00:00:00 of Medicine Tdap 2006-06-24 Completed [facility] 00:00:00 of Medicine Tdap 2006-06-24 Completed [facility] 00:00:00 of Medicine Tdap 2006-06-24 Completed [facility] 00:00:00 of Medicine Vital Signs Vital Name Observation Time Observation Value Comments Source HEIGHT 2020-03-25 11:06:00 160 cm WEIGHT 2020-03-25 11:06:00 67.677 kg HEIGHT 2020-03-22 09:50:00 160 cm WEIGHT 2020-03-22 09:50:00 68.947 kg Systolic blood 2022-06-15 16:27:00 146 mm[Hg] [facility] pressure Medicine Diastolic blood 2022-06-15 16:27:00 85 mm[Hg] [facility] Medicine Heart rate 2022-06-15 16:27:00 52 /min [facility] Body temperature 2022-06-15 16:27:00 36.33 Ailyn [facility] Respiratory rate 2022-06-15 16:27:00 15 /min [facility] Body height 2022-06-15 16:27:[address] [facility] Body weight 2022-06-15 16:27:[address] [facility] BMI 2022-06-15 16:27:00 28.52 kg/m2 [facility] Oxygen saturation in 2022-06-15 16:27:00 98 /min [facility] Arterial blood by Medicine Pulse oximetry height 2022-04-27 11:20:00 63 [in_i] [facility] weight 2022-04-27 11:20:00 159.4 [lb_av] [facility] temperature 2022-04-27 11:20:00 97.3 [degF] Common [facility] bmi 2022-04-27 11:20:00 28.23 kg/m2 [facility] oximetry 2022-04-27 11:20:00 100 % [facility] respiratory rate 2022-04-27 11:20:00 18 /min Comm on [facility] blood pressure 2022-04-27 11:20:00 128 mm[Hg] Common [facility] - systolic [facility] blood pressure 2022-04-27 11:20:00 74 mm[Hg] Common [facility] diastolic [facility] Systolic blood 2022-02-16 14:26:00 138 mm[Hg] [facility] Medicine Diastolic blood 2022-02-16 14:26:00 81 mm[Hg] [facility] Medicine Heart rate 2022-02-16 14:26:00 65 /min [facility] Body temperature 2022-02-16 14:26:00 36.44 Ailyn [facility] Respiratory rate 2022-02-16 14:26:00 16 /min [facility] Body height 2022-02-16 14:26:[address] [facility] Oxygen saturation in 2022-02-16 14:26:00 100 /min [facility] Arterial blood by [facility] Pulse oximetry height 2021-10-23 14:00:00 63 [in_i] [facility] weight 2021-10-23 14:00:00 151.8 [lb_av] [facility] temperature 2021-10-23 14:00:00 97.3 [degF] [facility] bmi 2021-10-23 14:00:00 26.89 kg/m2 [facility] oximetry 2021-10-23 14:00:00 100 % [facility] respiratory rate 2021-10-23 14:00:00 16 /min Comm on [facility] blood pressure 2021-10-23 14:00:00 152 mm[Hg] Common [facility] - systolic [facility] blood pressure 2021-10-23 14:00:00 84 mm[Hg] Common [facility] - diastolic [facility] Systolic blood 2021-07-22 20:23:00 153 mm[Hg] [facility] pressure Medicine Diastolic blood 2021-07-22 20:23:00 87 mm[Hg] [facility] Medicine Heart rate 2021-07-22 20:23:00 50 /min [facility] Body temperature 2021-07-22 20:23:00 36.56 Ailyn [facility] Respiratory rate 2021-07-22 20:23:00 16 /min [facility] Body height 2021-07-22 20:23:00 160 cm [facility] Body weight 2021-07-22 20:23:00 71.215 kg [facility] BMI 2021-07-22 20:23:00 27.81 kg/m2 [facility] Oxygen saturation in 2021-07-22 20:23:00 100 /min [facility] of Arterial blood by Medicine Pulse oximetry Systolic blood 2021-06-16 18:01:00 181 mm[Hg] [facility] of pressure Medicine Diastolic blood 2021-06-16 18:01:00 77 mm[Hg] [facility] of pressure Medicine Heart rate 2021-06-16 18:01:00 61 /min [facility] Body height 2021-06-16 18:01:00 160 cm [facility] Body weight 2021-06-16 18:01:00 70.308 kg [facility] BMI 2021-06-16 18:01:00 27.46 kg/m2 [facility] Systolic blood 2021-04-22 19:17:00 154 mm[Hg] [facility] of pressure Medicine Diastolic blood 2021-04-22 19:17:00 58 mm[Hg] [facility] Medicine Heart rate 2021-04-22 19:17:00 55 /min [facility] Respiratory rate 2021-04-22 19:17:00 16 /min [facility] Body height 2021-04-22 19:17:00 160 cm [facility] Body weight 2021-04-22 19:17:00 65.772 kg [facility] BMI 2021-04-22 19:17:00 25.69 kg/m2 [facility] Oxygen saturation in 2021-04-22 19:17:00 99 /min [facility] of Arterial blood by Medicine Pulse oximetry Systolic blood 2021-01-15 19:32:00 139 mm[Hg] [facility] of pressure Medicine Diastolic blood 2021-01-15 19:32:00 74 mm[Hg] [facility] pressure Medicine Heart rate 2021-01-15 19:32:00 62 /min [facility] Body temperature 2021-01-15 19:32:00 36.28 Ailyn [facility] Respiratory rate 2021-01-15 19:32:00 16 /min [facility] Body height 2021-01-15 19:32:00 160 cm [facility] Body weight 2021-01-15 19:32:00 66.497 kg [facility] BMI 2021-01-15 19:32:00 25.97 kg/m2 [facility] Oxygen saturation in 2021-01-15 19:32:00 99 /min [facility] of Arterial blood by Medicine Pulse oximetry Systolic blood 2020-10-04 18:54:00 183 mm[Hg] [facility] of pressure Medicine Diastolic blood 2020-10-04 18:54:00 80 mm[Hg] [facility] Medicine Heart rate 2020-10-04 18:54:00 82 /min [facility] Body temperature 2020-10-04 18:54:00 36.28 Ailyn [facility] Body height 2020-10-04 18:54:00 160 cm [facility] Body weight 2020-10-04 18:54:00 67.586 kg [facility] BMI 2020-10-04 18:54:00 26.39 kg/m2 [facility] Oxygen saturation in 2020-10-04 18:54:00 98 /min [facility] of Arterial blood by Medicine Pulse oximetry Systolic blood 2020-10-03 14:54:00 146 mm[Hg] [facility] of pressure Medicine Diastolic blood 2020-10-03 14:54:00 68 mm[Hg] [facility] of pressure Medicine Heart rate 2020-10-03 14:54:00 54 /min [facility] Body height 2020-10-03 14:54:00 160 cm [facility] Body weight 2020-10-03 14:54:00 67.586 kg [facility] BMI 2020-10-03 14:54:00 26.39 kg/m2 [facility] Systolic blood 2020-09-09 20:02:00 153 mm[Hg] [facility] of pressure Medicine Diastolic blood 2020-09-09 20:02:00 76 mm[Hg] [facility] pressure Medicine Heart rate 2020-09-09 20:02:00 56 /min [facility] Respiratory rate 2020-09-09 20:02:00 16 /min [facility] Oxygen saturation in 2020-09-09 20:02:00 100 /min [facility] blood by [facility] Pulse oximetry Body height 2020-09-09 19:49:00 160 cm [facility] Body weight 2020-09-09 19:49:00 67.405 kg [facility] BMI 2020-09-09 19:49:00 26.32 kg/m2 [facility] Systolic blood 2020-08-29 17:11:00 166 mm[Hg] [facility] of pressure Medicine Diastolic blood 2020-08-29 17:11:00 69 mm[Hg] [facility] pressure Medicine Heart rate 2020-08-29 17:11:00 54 /min [facility] Body height 2020-08-29 17:11:00 160 cm [facility] Body weight 2020-08-29 17:11:00 65.318 kg [facility] BMI 2020-08-29 17:11:00 25.51 kg/m2 [facility] Systolic blood 2020-07-05 20:31:00 146 mm[Hg] [facility] of pressure Medicine Diastolic blood 2020-07-05 20:31:00 78 mm[Hg] [facility] pressure Medicine Heart rate 2020-07-05 20:31:00 57 /min [facility] Respiratory rate 2020-07-05 20:31:00 16 /min [facility] Body height 2020-07-05 20:31:00 160 cm [facility] Body weight 2020-07-05 20:31:00 66.679 kg [facility] BMI 2020-07-05 20:31:00 26.04 kg/m2 [facility] Oxygen saturation in 2020-07-05 20:31:00 100 /min [facility] Arterial blood by [facility] Pulse oximetry Systolic blood 2020-06-14 17:11:00 154 mm[Hg] [facility] pressure Medicine Diastolic blood 2020-06-14 17:11:00 71 mm[Hg] [facility] Medicine Heart rate 2020-06-14 17:11:00 52 /min [facility] Body temperature 2020-06-14 17:07:00 36.72 Ailyn [facility] Respiratory rate 2020-06-14 17:07:00 16 /min [facility] Body height 2020-06-14 17:07:00 160 cm [facility] Body weight 2020-06-14 17:07:00 68.493 kg [facility] BMI 2020-06-14 17:07:00 26.75 kg/m2 [facility] Heart rate 2020-03-21 19:13:00 97 /min [facility] Body height 2020-03-21 19:13:00 160 cm [facility] Body weight 2020-03-21 19:13:00 68.584 kg [facility] BMI 2020-03-21 19:13:00 26.78 kg/m2 [facility] WEIGHT 2020-03-19 16:44:00 68.947 kg WEIGHT 2020-03-19 16:44:00 68.947 kg Systolic blood 2020-03-06 16:19:00 131 mm[Hg] [facility] pressure Medicine Diastolic blood 2020-03-06 16:19:00 73 mm[Hg] [facility] Medicine Heart rate 2020-03-06 16:19:00 53 /min [facility] Body temperature 2020-03-06 16:19:00 36.22 Ailyn [facility] Body height 2020-03-06 16:19:00 160 cm [facility] Body weight 2020-03-06 16:19:00 69.763 kg [facility] BMI 2020-03-06 16:19:00 27.24 kg/m2 [facility] Oxygen saturation in 2020-03-06 16:19:00 100 /min [facility] of Arterial blood by Medicine Pulse oximetry Systolic blood 2020-03-04 16:28:00 130 mm[Hg] [facility] of pressure Medicine Diastolic blood 2020-03-04 16:28:00 76 mm[Hg] [facility] of pressure Medicine Heart rate 2020-03-04 16:28:00 51 /min [facility] Body temperature 2020-03-04 16:28:00 36.17 Ailyn [facility] Respiratory rate 2020-03-04 16:28:00 16 /min [facility] Body height 2020-03-04 16:28:00 160 cm [facility] of [facility] Body weight 2020-03-04 16:28:00 69.4 kg [facility] BMI 2020-03-04 16:28:00 27.10 kg/m2 [facility] Oxygen saturation in 2020-03-04 16:28:00 99 /min [facility] of Arterial blood by Medicine Pulse oximetry Systolic blood 2019-11-15 16:03:00 147 mm[Hg] [facility] of pressure Medicine Diastolic blood 2019-11-15 16:03:00 85 mm[Hg] [facility] pressure Medicine Heart rate 2019-11-15 16:03:00 54 /min [facility] Body temperature 2019-11-15 16:03:00 35.56 Ailyn [facility] Body height 2019-11-15 16:03:00 160 cm [facility] Body weight 2019-11-15 16:03:00 68.947 kg [facility] BMI 2019-11-15 16:03:00 26.93 kg/m2 [facility] Systolic blood 2019-10-30 18:43:00 149 mm[Hg] [facility] of pressure Medicine Diastolic blood 2019-10-30 18:43:00 69 mm[Hg] [employer] of pressure Medicine Heart rate 2019-10-30 18:43:00 49 /min [facility] Body temperature 2019-10-30 18:43:00 36.22 Ailyn [facility] Respiratory rate 2019-10-30 18:43:00 16 /min [facility] Body height 2019-10-30 18:43:00 160 [facility] 2019-10-30 18:43:[address] [facility] BMI 2019-10-30 18:43:00 26.96 kg/m2 [facility] Systolic blood 2019-10-03 16:20:00 150 mm[Hg] [facility] Diastolic blood 2019-10-03 16:20:00 82 mm[Hg] [facility] Medicine Heart rate 2019-10-03 16:20:00 54 /min [facility] Body temperature 2019-10-03 16:20:00 36.78 Ailyn [facility] Respiratory rate 2019-10-03 16:20:00 16 /min [facility] Body height 2019-10-03 16:20:[address] [facility] Body weight 2019-10-03 16:20:[address] [facility] BMI 2019-10-03 16:20:00 27.95 kg/m2 [facility] Oxygen saturation in 2019-10-03 16:20:00 100 /min [facility] Arterial blood by [facility] Pulse oximetry Systolic blood 2019-03-07 16:14:00 153 mm[Hg] [facility] pressure Medicine Diastolic blood 2019-03-07 16:14:00 83 mm[Hg] [facility] Medicine Heart rate 2019-03-07 16:14:00 46 /min [facility] Body temperature 2019-03-07 16:14:00 36.67 Ailyn [facility] Respiratory rate 2019-03-07 16:14:00 14 /min [facility] Body height 2019-03-07 16:14:[address] [facility] Body weight 2019-03-07 16:14:[address] [facility] BMI 2019-03-07 16:14:00 27.14 kg/m2 [facility] Oxygen saturation in 2019-03-07 16:14:00 99 /min [facility] Arterial blood by Medicine Pulse oximetry Systolic blood 2019-02-14 15:41:00 168 mm[Hg] [facility] Diastolic blood 2019-02-14 15:41:00 84 mm[Hg] [facility] Medicine Heart rate 2019-02-14 15:41:00 53 /min [facility] Body temperature 2019-02-14 15:41:00 36.56 Ailyn [facility] Respiratory rate 2019-02-14 15:41:00 16 /min [facility] Body height 2019-02-14 15:41:[address] [facility] Body weight 2019-02-14 15:41:[address] [facility] BMI 2019-02-14 15:41:00 27.03 kg/m2 [facility] Oxygen saturation in 2019-02-14 15:41:00 100 /min [facility] Arterial blood by [facility] Pulse oximetry Procedures Procedure Date / Time Performing Clinician Source Performed AMB REF TO ENDOCRINOLOGY 2022-06-23 12:37:25 [facility] Medicine PHOSPHORUS 2022-06-23 10:57:44 [facility] PTH INTACT 2022-06-23 10:57:44 [facility] VITAMIN D 25 HYDROXY 2022-06-23 10:57:44 [facility] CALCIUM IONIZED 2022-06-23 10:57:44 [facility] URINALYSIS, COMPLETE 2022-06-23 10:57:44 [facility]/REFLEX TO CULTURE Medicine URINE CALCIUM/CREATININE 2022-06-23 10:57:44 [facility] XR DXA BONE DENSITY STUDY 2022-06-15 12:27:00 Andria Salinas [facility] FLU VACCINE HIGH DOSE >65YO 2022-02-16 10:09:10 [facility] COMPREHENSIVE METABOLIC 2022-02-16 09:45:51 [facility] C-REACTIVE PROTEIN 2022-02-16 09:45:51 [facility] SEDIMENTATION RATE MODIFIED 2022-02-16 09:45:51 [facility] W/AUTO DIFF WITH 2022-02-16 09:45:51 [facility] URINALYSIS, COMPLETE 2022-02-16 09:45:51 [facility]/REFLEX TO CULTURE Medicine RANDOM URINE 2022-02-16 09:45:51 [facility] of PROTEIN/CREATININE Medicine COMPREHENSIVE METABOLIC 2021-07-22 21:03:00 Andria Salinas [facility] C-REACTIVE PROTEIN 2021-07-22 21:03:[address] [facility] CBC W/AUTO DIFF WITH 2021-07-22 21:03:00 Andria Salinas [facility] SEDIMENTATION RATE MODIFIED 2021-07-22 21:03[facility]00 [facility]OL[facility] 2020-10-04 19:45:00 [facility] [facility] C-REACTIVE PROTEIN 2020-10-04 19:45:[address] [facility] CBC W/AUTO DIFF WITH 2020-10-04 19:45:00 Andria Salinas [facility] SEDIMENTATION RATE MODIFIED 2020-10-04 19:45:00 [facility]PREHENSIVE METABOLIC 2020-07-05 21:17:00 Andria Salinas [facility] C-REACTIVE PROTEIN 2020-07-05 21:17:[address] [facility] CBC W/AUTO DIFF WITH 2020-07-05 21:17:00 Andria Salinas [facility] SEDIMENTATION RATE MODIFIED 2020-07-05 21:17:00 Tiffany [facility] COMPREHENSIVE METABOLIC 2020-06-14 18:11:00 Josie Wood [facility] LIPID PANEL 2020-06-14 18:11:00 Josie Wood [facility] HEMOGLOBIN A1C 2020-06-14 18:11:00 Israel [facility] CBC W/AUTO DIFF WITH 2020-06-14 18:11:00 Israel [facility] PROTIME-INR 2020-06-14 18:11:00 Israel Joise [facility] APTT 2020-06-14 18:11:00 Israel Josie [facility] ELECTROCARDIOGRAM COMPLETE 2020-06-14 00:00:00 Josie Wood [facility] BASIC METABOLIC PANEL 2020-03-21 20:05:00 Naeem [facility] CBC W/AUTO DIFF WITH 2020-03-21 20:05:00 Naeem Aiden [facility] COMPREHENSIVE METABOLIC 2020-03-06 17:06:00 Andria Salinas [facility] C-REACTIVE PROTEIN 2020-03-06 17:06:[address] [facility] CBC W/AUTO DIFF WITH 2020-03-06 17:06:00 Andria Salinas [facility] Medicine SEDIMENTATION RATE MODIFIED 2020-03-06 17:06:00 Andria Salinas [facility] COMPREHENSIVE METABOLIC 2020-03-04 17:31:00 Josie Wood [facility] LIPID PANEL 2020-03-04 17:31:00 Josie Wood [facility] HEMOGLOBIN A1C 2020-03-04 17:31:00 Josie Wood [facility] CBC W/AUTO DIFF WITH 2020-03-04 17:31:00 Israel [facility] POCT URINALYSIS DIPSTICK 2020-03-04 00:00:00 Josie Wood [facility] EMG PM&R 2019-11-15 16:00:00 Israel Josie [facility] 20182019-10-30 20:14:00 Josie Wood [facility] Colle ge of CORONAVIRUS(COVID-19) [facility] ANTIBODY, IGG Plan of Care Planned Activity Planned Date Details Comments Source Future Scheduled 2030-03-[address] [facility] 00:00:00 malignant neoplasm of Medica l Center colon (procedure) [code = 814173335] Future Scheduled 2030-03-[address] [facility] Test 00:00:00 malignant neoplasm of [facility] Center colon (procedure) [code = 775551283] Future Scheduled 2030-03-[address] [facility] Test 00:00:00 malignant neoplasm of [facility] Center colon (procedure) [code = 312007266] Future Scheduled 2030-03-[address] [facility] Test 00:00:00 malignant neoplasm of Medica [facility] Center colon (procedure) [code = 675072239] Future Scheduled 2030-03-[address] [facility] Test 00:00:00 malignant neoplasm of Medica [facility] Center colon (procedure) [code = 654421035] Future Scheduled 2030-03-[address] [facility] Test 00:00:00 malignant neoplasm of Medica l Center colon (procedure) [code = 677997847] Future Scheduled 2030-03-[address] [facility] Test 00:00:00 malignant neoplasm of Medica [facility] Center colon (procedure) [code = 197243621] Future Scheduled 2030-03-[address] [facility] Test 00:00:00 malignant neoplasm of Medica l Center colon (procedure) [code = 965547650] Future Scheduled 2030-03-[address] [facility] Test 00:00:00 malignant neoplasm of Medica [facility] Center colon (procedure) [code = 133128081] Future Scheduled 2030-03-[address] [facility] Test 00:00:00 malignant neoplasm of Medica l Center colon (procedure) [code = 621875359] Future Scheduled 2024-09-04 DTAP/TDAP/TD VACCINES [facility] 00:00:00 (4 - Td or Tdap) [code Medic al Center = DTAP/TDAP/TD VACCINES (4 - Td or Tdap)] Future Scheduled 2024-09-04 DTAP/TDAP/TD VACCINES [facility] 00:00:00 (4 - Td or Tdap) [code Medic al Center = DTAP/TDAP/TD VACCINES (4 - Td or Tdap)] Future Scheduled 2024-09-04 DTAP/TDAP/TD VACCINES [facility] 00:00:00 (4 - Td or Tdap) [code Medic al Center = DTAP/TDAP/TD VACCINES (4 - Td or Tdap)] Future Scheduled 2024-09-04 DTAP/TDAP/TD VACCINES [facility] 00:00:00 (4 - Td or Tdap) [code Medic al Center = DTAP/TDAP/TD VACCINES (4 - Td or Tdap)] Future Scheduled 2024-09-04 DTAP/TDAP/TD VACCINES [facility] 00:00:00 (4 - Td or Tdap) [code Medic al Center = DTAP/TDAP/TD VACCINES (4 - Td or Tdap)] Future Scheduled 2024-06-15 DXA SCAN [code = DXA [facility] Test 00:00:00 SCAN] Medical Center Future Scheduled 2022-06-15 COVID-19 Vaccine (3 - [employer] Test 11:13:05 Booster for Pfizer of Medici ne series) [code = COVID-19 Vaccine (3 - Booster for Pfizer series)] Future Scheduled 2022-06-15 BMI Follow Up Plan [employer] Test 11:13:05 [code = BMI Follow Up of Med icine Plan] Future Scheduled 2022-06-15 Screening for [facility] Test 11:13:05 malignant neoplasm of of Med icine colon (procedure) [code = 267771130] Future Scheduled 2022-06-15 Screening for [facility] Test 11:13:05 malignant neoplasm of of Med icine breast (procedure) [code = 763004095] Future Scheduled 2022-06-15 Fall Screen [code = [employer] Test 11:13:05 Fall Screen] of Medicine Future Scheduled 2022-06-15 TETANUS SHOT (ADULT) [employer] Test 11:13:05 [code = TETANUS SHOT of Medi cine (ADULT)] Future Scheduled 2022-06-15 COMPREHENSIVE Ordered: [facility] Test 10:51:13 METABOLIC PANEL [code 06/15/2022 of Med icine = 27009-0] Future Scheduled 2022-06-15 C-REACTIVE PROTEIN Ordered: [employer] Test 10:51:13 [code = 1988-5] 06/15/2022 of Medicine Future Scheduled 2022-06-15 SEDIMENTATION RATE Ordered: [employer] Test 10:51:13 MODIFIED WESTERGREN 06/15/2022 of Medic ine [code = 4537-7] Future Scheduled 2022-06-15 CBC W/AUTO DIFF WITH Ordered: [employer] Test 10:51:13 PLATELETS [code = 06/15/2022 of Medicin e 93158-1] Future Scheduled 2022-06-15 DEXA BONE DENSITY 1 Occurrences [employer] Test 10:51:13 SPINE AND HIP [code = starting of Med icine 06278] 06/15/2022 until 06/15/2023 Future Scheduled 2022-05-[address] [facility] Test 00:00:00 (12+) [code = Medical Center DEPRESSION SCREENING (12+)] Future Scheduled 2022-05-24 FALLS RISK SCREENING [facility] Test 00:00:00 [code = FALLS RISK Medical C enter SCREENING] Future Scheduled 2022-05-[address] [facility] Test 00:00:00 (12+) [code = Medical Center DEPRESSION SCREENING (12+)] Future Scheduled 2022-05-24 FALLS RISK SCREENING [facility] Test 00:00:00 [code = FALLS RISK Medical C enter SCREENING] Future Scheduled 2022-05-[address] [facility] Test 00:00:00 (12+) [code = Medical Center DEPRESSION SCREENING (12+)] Future Scheduled 2022-05-24 FALLS RISK SCREENING [facility] Test 00:00:00 [code = FALLS RISK Medical C enter SCREENING] Future Scheduled 2022-02-16 FALL SCREEN [code = [employer] Test 10:12:06 FALL SCREEN] of Medicine Future Scheduled 2022-02-16 COVID-19 Vaccine (3 - [employer] Test 10:12:06 Booster for Pfizer of Medici ne series) [code = COVID-19 Vaccine (3 - Booster for Pfizer series)] Future Scheduled 2022-02-16 BMI FOLLOW UP PLAN [employer] Test 10:12:06 [code = BMI FOLLOW UP of Med icine PLAN] Future Scheduled 2022-02-16 Screening for [facility] Test 10:12:06 malignant neoplasm of of Med icine colon (procedure) [code = 924360273] Future Scheduled 2022-02-16 Screening for [facility] Test 10:12:06 malignant neoplasm of of Med icine breast (procedure) [code = 146381575] Future Scheduled 2022-02-16 TETANUS SHOT (ADULT) [facility] Test 10:12:06 [code = TETANUS SHOT of Medi cine (ADULT)] Future Scheduled 2022-02-16 COMPREHENSIVE Ordered: [facility] Test 09:45:51 METABOLIC PANEL [code 02/16/2022 of Med icine = 65356-1] Future Scheduled 2022-02-16 C-REACTIVE PROTEIN Ordered: [facility] Test 09:45:51 [code = 1988-5] 02/16/2022 of Medicine Future Scheduled 2022-02-16 SEDIMENTATION RATE Ordered: [facility] Test 09:45:51 MODIFIED WESTERGREN 02/16/2022 of Medic ine [code = 4537-7] Future Scheduled 2022-02-16 CBC W/AUTO DIFF WITH Ordered: [facility] Test 09:45:51 PLATELETS [code = 02/16/2022 of Medicin e 61943-5] Future Scheduled 2022-02-16 URINALYSIS, COMPLETE Ordered: [facility] Test 09:45:51 W/REFLEX TO CULTURE 02/16/2022 of Medic ine [code = 19426-8] Future Scheduled 2022-02-16 RANDOM URINE Ordered: [facility] [employer] Test 09:45:51 PROTEIN/CREATININE 02/16/2022 of Medici ne [code = 2890-2] Future Scheduled 2022-01-22 INFLUENZA VACCINE (#1) [facility]00 [code = INFLUENZA Medical Ce nter VACCINE (#1)] Future Scheduled 2022-01-22 INFLUENZA VACCINE (#1) [facility] 00:00:00 [code = INFLUENZA Medical Ce nter VACCINE (#1)] Future Scheduled 2022-01-22 INFLUENZA VACCINE (#1) [facility] 00:00:00 [code = INFLUENZA Medical Ce nter VACCINE (#1)] Future Scheduled 2022-01-22 INFLUENZA VACCINE (#1) [facility] 00:00:00 [code = INFLUENZA Medical Ce nter VACCINE (#1)] Future Scheduled 2021-08-07 MEDICARE AWV (Initial) [employer] Test 13:00:02 [code = MEDICARE AWV of Medi cine (Initial)] Future Scheduled 2021-08-07 COVID-19 Vaccine (3 - [employer] Test 13:00:02 Pfizer risk 4-dose of Medici ne series) [code = COVID-19 Vaccine (3 - Pfizer risk 4-dose series)] Future Scheduled 2021-08-07 BMI FOLLOW UP PLAN [employer] Test 13:00:02 [code = BMI FOLLOW UP of Med icine PLAN] Future Scheduled 2021-08-07 Screening for [facility] Test 13:00:02 malignant neoplasm of of Med icine colon (procedure) [code = 230070622] Future Scheduled 2021-08-07 FALL SCREEN [code = [employer] Test 13:00:02 FALL SCREEN] of Medicine Future Scheduled 2021-08-07 Screening for [facility] Test 13:00:02 malignant neoplasm of of Med icine breast (procedure) [code = 277686941] Future Scheduled 2021-08-07 TETANUS SHOT (ADULT) [employer] Test 13:00:02 [code = TETANUS SHOT of Medi cine (ADULT)] Future Scheduled 2021-08-07 NE SKIN TISSUE Ordered: [facility] [employer] Test 12:58:18 PROCEDURE UNLISTED 08/07/2021 of Medici ne [code = 92825] Future Scheduled 2021-07-25 NE PUNCH BIOPSY SKIN Ordered: [employer] Test 09:50:38 SINGLE LESION [code = 07/25/2021 of Med icine 74275] Future Scheduled 2021-07-25 NE PUNCH BIOPSY SKIN Ordered: [employer] Test 09:50:38 EA SEP/ADDITIONAL 07/25/2021 of Medicin e LESION [code = 72540] Future Scheduled 2021-07-25 MEDICARE AWV (Initial) [employer] Test 09:50:29 [code = MEDICARE AWV of Medi cine (Initial)] Future Scheduled 2021-07-25 COVID-19 Vaccine (3 - [employer] Test 09:50:29 Pfizer risk 4-dose of Medici ne series) [code = COVID-19 Vaccine (3 - Pfizer risk 4-dose series)] Future Scheduled 2021-07-25 BMI FOLLOW UP PLAN [employer] Test 09:50:29 [code = BMI FOLLOW UP of Med icine PLAN] Future Scheduled 2021-07-25 Screening for [facility] Test 09:50:29 malignant neoplasm of of Med icine colon (procedure) [code = 234655262] Future Scheduled 2021-07-25 FALL SCREEN [code = [employer] Test 09:50:29 FALL SCREEN] of Medicine Future Scheduled 2021-07-25 Screening for [facility] Test 09:50:29 malignant neoplasm of of Med icine breast (procedure) [code = 088190451] Future Scheduled 2021-07-25 TETANUS SHOT (ADULT) [employer] Test 09:50:29 [code = TETANUS SHOT of Medi cine (ADULT)] Future Scheduled 2021-07-23 MEDICARE AWV (Initial) [employer] Test 10:48:51 [code = MEDICARE AWV of Medi cine (Initial)] Future Scheduled 2021-07-23 COVID-19 Vaccine (3 - [employer] Test 10:48:51 Pfizer risk 4-dose of Medici ne series) [code = COVID-19 Vaccine (3 - Pfizer risk 4-dose series)] Future Scheduled 2021-07-23 BMI FOLLOW UP PLAN [employer] Test 10:48:51 [code = BMI FOLLOW UP of Med icine PLAN] Future Scheduled 2021-07-23 Screening for [facility] Test 10:48:51 malignant neoplasm of of Med icine colon (procedure) [code = 673569570] Future Scheduled 2021-07-23 FALL SCREEN [code = [employer] Test 10:48:51 FALL SCREEN] of Medicine Future Scheduled 2021-07-23 Screening for [facility] Test 10:48:51 malignant neoplasm of of Med icine breast (procedure) [code = 480243226] Future Scheduled 2021-07-23 TETANUS SHOT (ADULT) [employer] Test 10:48:51 [code = TETANUS SHOT of Medi cine (ADULT)] Future Scheduled 2021-06-16 MEDICARE AWV (Initial) [employer] Test 12:26:55 [code = MEDICARE AWV of Medi cine (Initial)] Future Scheduled 2021-06-16 COVID-19 Vaccine (3 - [employer] Test 12:26:55 Pfizer risk 4-dose of Medici ne series) [code = COVID-19 Vaccine (3 - Pfizer risk 4-dose series)] Future Scheduled 2021-06-16 BMI FOLLOW UP PLAN [employer] Test 12:26:55 [code = BMI FOLLOW UP of Med icine PLAN] Future Scheduled 2021-06-16 Screening for [facility] Test 12:26:55 malignant neoplasm of of Med icine colon (procedure) [code = 384276134] Future Scheduled 2021-06-16 FALL SCREEN [code = [employer] Test 12:26:55 FALL SCREEN] of Medicine Future Scheduled 2021-06-16 Screening for [facility] Test 12:26:55 malignant neoplasm of of Med icine breast (procedure) [code = 184264757] Future Scheduled 2021-06-16 TETANUS SHOT (ADULT) [employer] Test 12:26:55 [code = TETANUS SHOT of Medi cine (ADULT)] Future Scheduled 2021-05-[address] [facility] Test 00:00:00 (12+) [code = Medical Center DEPRESSION SCREENING (12+)] Future Scheduled 2021-05-24 FALLS RISK SCREENING [facility] Test 00:00:00 [code = FALLS RISK Medical C enter SCREENING] Future Scheduled 2021-05-[address] [facility] Test 00:00:00 (12+) [code = Medical Center DEPRESSION SCREENING (12+)] Future Scheduled 2021-05-24 FALLS RISK SCREENING [facility] Test 00:00:00 [code = FALLS RISK Medical C enter SCREENING] Future Scheduled 2021-04-22 MEDICARE AWV (Initial) [employer] Test 14:46:17 [code = MEDICARE AWV of Medi cine (Initial)] Future Scheduled 2021-04-22 COVID-19 Vaccine (3 - [employer] Test 14:46:17 Pfizer risk 4-dose of Medici ne series) [code = COVID-19 Vaccine (3 - Pfizer risk 4-dose series)] Future Scheduled 2021-04-22 BMI FOLLOW UP PLAN [employer] Test 14:46:17 [code = BMI FOLLOW UP of Med icine PLAN] Future Scheduled 2021-04-22 Screening for [facility] 14:46:17 malignant neoplasm of of Med icine colon (procedure) [code = 781669610] Future Scheduled 2021-04-22 FALL SCREEN [code = [employer] Test 14:46:17 FALL SCREEN] of Medicine Future Scheduled 2021-04-22 Screening for [facility] Test 14:46:17 malignant neoplasm of of Med icine breast (procedure) [code = 149783078] Future Scheduled 2021-04-22 TETANUS SHOT (ADULT) [employer] Test 14:46:17 [code = TETANUS SHOT of Medi cine (ADULT)] Future Scheduled 2021-04-22 CBC W/AUTO DIFF WITH Ordered: [facility] [employer] Test 14:03:58 PLATELETS [code = 04/22/2021 of Medicin e 41919-8] Future Scheduled 2021-04-22 FOLATE [code = 2284-8] [facility]: [facility] Test 14:03:58 04/22/2021 of Medicine Future Scheduled 2021-04-22 VITAMIN B12 [code = Ordered: [facility] Test 14:03:58 2132-9] 04/22/2021 of Medicine Future Scheduled 2021-04-22 COMPREHENSIVE Ordered: [facility] Test 14:03:58 METABOLIC PANEL [code 04/22/2021 of Med icine = 33483-9] Future Scheduled 2021-04-22 SEDIMENTATION RATE Ordered: [facility] Test 14:03:58 KAY KERN 04/22/2021 of Medic ine [code = 4537-7] Future Scheduled 2021-04-22 C-REACTIVE PROTEIN Ordered: [facility] Test 14:03:58 [code = 1988-5] 04/22/2021 of Medicine Future Scheduled 2021-03-[address] [facility] Test 00:00:00 Counseling and Medical Cente r Screening (12+) [code = Tobacco Cessation Counseling and Screening (12+)] Future Scheduled 2021-03-[address] [facility] Test 00:00:00 Counseling and Medical Cente r Screening (12+) [code = Tobacco Cessation Counseling and Screening (12+)] Future Scheduled 2021-03-[address] [facility] Test 00:00:00 Counseling and Medical Cente r Screening (12+) [code = Tobacco Cessation Counseling and Screening (12+)] Future Scheduled 2021-03-[address] [facility] Test 00:00:00 Counseling and Medical Cente r Screening (12+) [code = Tobacco Cessation Counseling and Screening (12+)] Future Scheduled 2021-03-[address] [facility] Test 00:00:00 Counseling and Medical Cente r Screening (12+) [code = Tobacco Cessation Counseling and Screening (12+)] Future Scheduled 2021-01-15 COMPREHENSIVE Ordered: [facility] Test 14:51:13 METABOLIC PANEL [code 01/15/2021 of Med icine = 93375-9] Future Scheduled 2021-01-15 C-REACTIVE PROTEIN Ordered: [employer] Test 14:51:13 [code = 1988-5] 01/15/2021 of Medicine Future Scheduled 2021-01-15 CBC W/AUTO DIFF WITH Ordered: [employer] Test 14:51:13 PLATELETS [code = 01/15/2021 of Medicin e 35373-9] Future Scheduled 2021-01-15 SEDIMENTATION RATE Ordered: [employer] Test 14:51:13 MODIFIED WESTERGREN 01/15/2021 of Medic ine [code = 4537-7] Future Scheduled 2021-01-15 MEDICARE AWV (Initial) [employer] Test 14:38:09 [code = MEDICARE AWV of Medi cine (Initial)] Future Scheduled 2021-01-15 FLU VACCINE > 6 MONTHS [employer] Test 14:38:09 [code = FLU VACCINE > of Med icine 6 MONTHS] Future Scheduled 2021-01-15 BMI FOLLOW UP PLAN [employer] Test 14:38:09 [code = BMI FOLLOW UP of Med icine PLAN] Future Scheduled 2021-01-15 Screening for [facility] Test 14:38:09 malignant neoplasm of of Med icine colon (procedure) [code = 937896521] Future Scheduled 2021-01-15 FALL SCREEN [code = [employer] Test 14:38:09 FALL SCREEN] of Medicine Future Scheduled 2021-01-15 Screening for [facility] Test 14:38:09 malignant neoplasm of of Med icine breast (procedure) [code = 260559036] Future Scheduled 2021-01-15 TETANUS SHOT (ADULT) [employer] Test 14:38:09 [code = TETANUS SHOT of Medi cine (ADULT)] Future Scheduled 2020-12-03 MRI ANKLE LEFT WO 1 Occurrences [employer] Test 14:14:11 CONTRAST [code = starting of Medicine 82288] 12/03/2020 until 12/03/2021 Future Scheduled 2020-12-03 ORT - XR FOOT BILAT 3V Ordered: [employer] Test 13:26:53 (CHARGE ONLY) [code = 12/03/2020 of Med icine 90943] Future Scheduled 2020-12-03 MEDICARE AWV (Initial) [employer] Test 13:18:51 [code = MEDICARE AWV of Medi cine (Initial)] Future Scheduled 2020-12-03 FLU VACCINE > 6 MONTHS [employer] Test 13:18:51 [code = FLU VACCINE > of Med icine 6 MONTHS] Future Scheduled 2020-12-03 BMI FOLLOW UP PLAN [employer] Test 13:18:51 [code = BMI FOLLOW UP of Med icine PLAN] Future Scheduled 2020-12-03 Screening for [facility] Test 13:18:51 malignant neoplasm of of Med icine colon (procedure) [code = 033485757] Future Scheduled 2020-12-03 FALL SCREEN [code = [employer] Test 13:18:51 FALL SCREEN] of Medicine Future Scheduled 2020-12-03 Screening for [facility] Test 13:18:51 malignant neoplasm of of Med icine breast (procedure) [code = 204258572] Future Scheduled 2020-12-03 TETANUS SHOT (ADULT) [employer] Test 13:18:51 [code = TETANUS SHOT of Medi cine (ADULT)] Future Scheduled 2020-10-05 MEDICARE AWV (Initial) [employer] Test 12:30:21 [code = MEDICARE AWV of Medi cine (Initial)] Future Scheduled 2020-10-05 Screening for [facility] 12:30:21 malignant neoplasm of of Med icine breast (procedure) [code = 320283954] Future Scheduled 2020-10-05 FLU VACCINE > 6 MONTHS [employer] Test 12:30:21 [code = FLU VACCINE > of Med icine 6 MONTHS] Future Scheduled 2020-10-05 BMI FOLLOW UP PLAN [employer] Test 12:30:21 [code = BMI FOLLOW UP of Med icine PLAN] Future Scheduled 2020-10-05 Screening for [facility] Test 12:30:21 malignant neoplasm of of Med icine colon (procedure) [code = 526973979] Future Scheduled 2020-10-05 FALL SCREEN [code = [employer] Test 12:30:21 FALL SCREEN] of Medicine Future Scheduled 2020-10-05 TETANUS SHOT (ADULT) [employer] Test 12:30:21 [code = TETANUS SHOT of Medi cine (ADULT)] Future Scheduled 2020-10-04 MEDICARE AWV (Initial) [employer] Test 14:39:01 [code = MEDICARE AWV of Medi cine (Initial)] Future Scheduled 2020-10-04 Screening for [facility] Test 14:39:01 malignant neoplasm of of Med icine breast (procedure) [code = 680530595] Future Scheduled 2020-10-04 FLU VACCINE > 6 MONTHS [employer] Test 14:39:01 [code = FLU VACCINE > of Med icine 6 MONTHS] Future Scheduled 2020-10-04 BMI FOLLOW UP PLAN [employer] Test 14:39:01 [code = BMI FOLLOW UP of Med icine PLAN] Future Scheduled 2020-10-04 Screening for [facility] Test 14:39:01 malignant neoplasm of of Med icine colon (procedure) [code = 247556668] Future Scheduled 2020-10-04 FALL SCREEN [code = [employer] [facility] 14:39:01 FALL SCREEN] of Medicine Future Scheduled 2020-10-04 TETANUS SHOT (ADULT) [employer] Test 14:39:01 [code = TETANUS SHOT of Medi cine (ADULT)] Diagnostic Test 2020-09-09 MAMMO 3D SCREENING Expected: [facility] Pending 00:00:00 BILATERAL [code = 09/09/2020, of Yovani collins 44518] Expires: 03/11/2022 Future Scheduled 2020-08-21 COVID-19 VACCINE (3 - [facility] 00[facility]00:00 Pfizer risk series) Medical Center [code = COVID-19 VACCINE (3 - Pfizer risk series)] Diagnostic Test 2020-06-14 ECHO, COMPLETE [code = Expected: [facility] Pending 00:00:00 [id number]] 06/14/2020, of Medicine Expires: 12/12/2020 Diagnostic Test 2019-10-30 MAMMO 3D SCREENING Expected: [facility] Pending 00:00:00 BILATERAL [code = 10/30/2019, of Medicin e 67416] Expires: 04/30/2021 Future Scheduled 2017-05-[address] [facility] 00:00:00 WELLNESS (YEAR 2 or Medical Center FIRST YEAR if no IPPE) [code = MEDICARE ANNUAL WELLNESS (YEAR 2 or FIRST YEAR if no IPPE)] Future Scheduled 2017-05-[address] [facility] 00:00:00 WELLNESS (YEAR 2 or Medical Center FIRST YEAR if no IPPE) [code = MEDICARE ANNUAL WELLNESS (YEAR 2 or FIRST YEAR if no IPPE)] Future Scheduled 2017-05-[address] [facility] 00:00:00 WELLNESS (YEAR 2 or Medical Center FIRST YEAR if no IPPE) [code = MEDICARE ANNUAL WELLNESS (YEAR 2 or FIRST YEAR if no IPPE)] Future Scheduled 2017-05-[address] [facility] 00:00:00 WELLNESS (YEAR 2 or Medical Center FIRST YEAR if no IPPE) [code = MEDICARE ANNUAL WELLNESS (YEAR 2 or FIRST YEAR if no IPPE)] Future Scheduled 2017-05-[address] [facility] 00:00:00 WELLNESS (YEAR 2 or Medical Center FIRST YEAR if no IPPE) [code = MEDICARE ANNUAL WELLNESS (YEAR 2 or FIRST YEAR if no IPPE)] Future Scheduled 1968-01-04 HEPATITIS C [facility]CREENING [facility] 00:00:00 [code = HEPATITIS C Medical Center SCREENING] Future Scheduled 1968-01-04 HEPATITIS C [facility]CREENING [facility] 00:00:00 [code = HEPATITIS C Medical Center SCREENING] Future Scheduled 1968-01-04 HEPATITIS C [facility]CREENING [facility] 00:00:00 [code = HEPATITIS C Medical Center SCREENING] Future Scheduled 1968-01-04 HEPATITIS C [facility]CREENING [facility] 00:00:00 [code = HEPATITIS C Medical Center SCREENING] Future Scheduled 1968-01-04 HEPATITIS C [facility]CRE[facility]ING [facility] 00:00:00 [code = HEPATITIS C Medical Center SCREENING] Future Scheduled 1950 COVID-19 VACCINE (#1) [facility] 00:00:00 [code = COVID-[address] VACCINE (#1)] Future Scheduled 1950 COVID-19 VACCINE (#1) [facility] 00:[facility]:00 [code = COVID-[address] VACCINE (#1)] Future Scheduled 1950 COVID-19 VACCINE (#1) [facility] 00:[facility]00 [code = COVID-[address] VACCINE (#1)] Future Scheduled 1950 COVID-19 VACCINE (#1) [facility] 00:[facility]:00 [code = COVID-[address] VACCINE (#1)] Future Scheduled [address] [facility] breast (procedure) [code = 089477557] Future Scheduled [address] [facility] 00:00:00 (combo) [code = CT Medical C enter Colonography (combo)] Future Scheduled [address] [facility] 00:[facility]:00 [facility] ne[facility] colon (procedure) [code = 783730095] Future Scheduled [address] [facility] 00:00:00 malignant ne[facility] colon (procedure) [code = 513174217] Future Scheduled 1950 Sigmoidoscopy [code = [facility]] [facility] Future Scheduled [address] [facility] 00:00:00 malignant neoplasm [facility] breast (procedure) [code = 594023322] Future Scheduled [address] [facility] 00:00:00 (combo) [code = CT Medical C enter Colonography (combo)] Future Scheduled 1950 DXA SCAN [code = DXA [facility] 00:00:00 SCAN] [facility] Future Scheduled [address] [facility] 00:00:00 malignant neoplasm [facility] colon (procedure) [code = 533692832] Future Scheduled [address] [facility] 00:00:00 malignant neoplasm [facility] colon (procedure) [code = 174434984] Future Scheduled 1950 Sigmoidoscopy [code = [facility]] [facility]uled [address] [facility] 00:00:00 malignant neoplasm [facility] breast (procedure) [code = 488130173] Future Scheduled [address] [facility] 00:00:00 (combo) [code = CT Medical C enter Colonography (combo)] Future Scheduled 1950 DXA SCAN [code = DXA [facility] 00:00:00 SCAN] [facility] Future Scheduled [address] [facility] 00:00:00 malignant neoplasm [facility] colon (procedure) [code = 032122506] Future Scheduled [address] [facility] 00:00:00 malignant neoplasm [facility] colon (procedure) [code = 231540269] Future Scheduled 1950 Sigmoidoscopy [code = [facility] S[facility]oscopy] [facility] r Future Scheduled [address] [facility] 00:00:00 malignant neoplasm of [facility] breast (procedure) [code = 745276376] Future Scheduled [address] [facility] 00:00:00 (combo) [code = CT Medical C enter Colonography (combo)] Future Scheduled 1950 DXA SCAN [code = DXA [facility] 00:00:00 SCAN] [facility] Future Scheduled [address] [facility] 00:00:00 malignant neoplasm [facility] colon (procedure) [code = 625846265] Future Scheduled [address] [facility] 00:00:00 malignant neoplasm [facility] colon (procedure) [code = 745345346] Future Scheduled 1950 Sigmoidoscopy [code = [facility]] [facility] Future Scheduled [address] [facility] 00:00:00 malignant neoplasm of [facility] breast (procedure) [code = 172407643] Future Scheduled [address] [facility] 00:00:00 (combo) [code = CT Medical C enter Colonography (combo)] Future Scheduled 1950 DXA SCAN [code = DXA [facility] 00:00:00 SCAN] [facility] Future Scheduled [address] [facility] 00:00:00 malignant neoplasm of [facility] colon (procedure) [code = 225056366] Future Scheduled [address] [facility] 00:00:00 malignant neoplasm of [facility] colon (procedure) [code = 814901590] Future Scheduled 1950 Sigmoidoscopy [facility]code [facility]] [facility] Future Scheduled DISHROOM ATTENDANT ANTIBODY [code = Ordered: [facility] Test NOCPT] 02/14/2019 of Medicine Future Scheduled RHEUMATOID FACTOR Ordered: [facility] Test [code = 17278-1] 02/14/2019 of Medicine Future Scheduled CCP AB (IGG/IGA) [code Ordered: B [facility] Test = 48458-1] 02/14/2019 of Medicine Future Scheduled ANTI NEUTROPHIL Ordered: [facility] Tali rodriguez Test CYTOPLASMIC ANTIBODY 02/14/2019 of [place] [code = 63062] Future Scheduled QUANTIFERON TB GOLD Ordered: [facility] Test PLUS 4 TUBES [code = 02/14/2019 of [place] 97274-9] Future Scheduled URINALYSIS, COMPLETE Ordered: [facility] Test W/REFLEX TO CULTURE 02/14/2019 of Medic ine [code = 83018-6] Future Scheduled RANDOM URINE Ordered: [facility] [employer] Test PROTEIN/CREATININE 02/14/2019 of Medici ne [code = 2890-2] Future Scheduled HEPATITIS C ANTIBODY Ordered: [facility] Test [code = 59804-7] 02/14/2019 of Medicine Future Scheduled HLA-B SPECIFIC [code = Ordered: [facility] NOCPT] 02/14/2019 of [facility] Future Scheduled RPR NON-REFLEX Ordered: [facility] [employer] Test QUALITATIVE [code = 02/14/2019 of Medic ine 43662-9] Future Scheduled MEDICARE AWV [code = [employer] [facility] MEDICARE AWV] of Medicine Future Scheduled FALL SCREEN [code = [employer] [facility] FALL SCREEN] of Medicine Future Scheduled MAMMOGRAM EVERY 2 [facility] Test YEARS [code = of Medicine MAMMOGRAM EVERY 2 YEARS] Future Scheduled FLU VACCINE > 6 MONTHS [employer] [facility] [code = FLU VACCINE > of Med icine 6 MONTHS] Future Scheduled TETANUS SHOT (ADULT) [employer] [facility] [code = TETANUS SHOT of Medi cine (ADULT)] Future Scheduled COLON CANCER [facility] [employer] Test SCREENING: COLONOSCOPY of dicine [code = COLON CANCER SCREENING: COLONOSCOPY] Future Scheduled TPMT [code = NOCPT] Ordered: [employer] [facility] 03/07/2019 of Medicine Future Scheduled CK [code = 2157-6] Ordered: [employer] [facility] 03/07/2019 of Medicine Future Scheduled VITAMIN D 25 HYDROXY Ordered: [employer] Test [code = 1989-3] 03/07/2019 of Medicine Future Scheduled MEDICARE AWV [code = [employer] MEDICARE AWV] of Medicine Future Scheduled BMI FOLLOW UP PLAN [employer] [facility] [code = BMI FOLLOW UP of Med icine PLAN] Future Scheduled FALL SCREEN [code = [employer] [facility] FALL SCREEN] of Medicine Future Scheduled MAMMOGRAM EVERY 2 [facility] Test YEARS [code = of Medicine MAMMOGRAM EVERY 2 YEARS] Future Scheduled TETANUS SHOT (ADULT) [employer] [facility] [code = TETANUS SHOT of Medi cine (ADULT)] Future Scheduled COLON CANCER [facility] [employer] Test SCREENING: COLONOSCOPY of Me john [code = COLON CANCER SCREENING: COLONOSCOPY] Future Scheduled URIC ACID [code = Ordered: [facility] [employer] Test 3084-1] 10/03/2019 of Medicine Future Scheduled C-REACTIVE PROTEIN Ordered: [employer] [facility] [code = 1988-5] 10/03/2019 of Medicine Future Scheduled COMPREHENSIVE Ordered: [facility] [employer] Test METABOLIC PANEL [code 10/03/2019 of Med icine = 95693-3] Future Scheduled CBC W/AUTO DIFF WITH Ordered: [facility] Test PLATELETS [code = 10/03/2019 of Medicin e 63085-2] Future Scheduled SEDIMENTATION RATE Ordered: [facility] Test MODIFIED WESTERGREN 10/03/2019 of Medic ine [code = 4537-7] Future Scheduled BMI FOLLOW UP PLAN [employer] [facility] [code = BMI FOLLOW UP of Med icine PLAN] Future Scheduled FALL SCREEN [code = [employer] FALL SCREEN] of Medicine Future Scheduled MEDICARE AWV (Initial) [employer] [facility] [code = MEDICARE AWV of Medi cine (Initial)] Future Scheduled MAMMOGRAM EVERY 2 [facility] Test YEARS [code = of Medicine MAMMOGRAM EVERY 2 YEARS] Future Scheduled FLU VACCINE > 6 MONTHS [employer] [facility] [code = FLU VACCINE > of Med icine 6 MONTHS] Future Scheduled TETANUS SHOT (ADULT) [employer] [facility] [code = TETANUS SHOT of Medi cine (ADULT)] Future Scheduled COLON CANCER [facility] [employer] Test SCREENING: COLONOSCOPY of Me dicine [code = COLON CANCER SCREENING: COLONOSCOPY] Future Scheduled CBC W/AUTO DIFF WITH Ordered: [employer] Test PLATELETS [code = 10/30/2019 of Medicin e 28650-8] Future Scheduled VITAMIN B12 & FOLIC Ordered: [facility] Test ACID [code = NOCPT] 10/30/2019 of Medic ine Future Scheduled RPR(DIAG) W RFLX Ordered: [facility] Test TITER/CONF [code = 10/30/[place] [address]-7] Future Scheduled BASIC METABOLIC PANEL Ordered: [employer] Test [code = 12475-6] 10/30/2019 of Medicine Future Scheduled HEMOGLOBIN A1C [code = Ordered: [employer] [facility] 4548-4] 10/30/2019 of Medicine Future Scheduled SEDIMENTATION RATE Ordered: [employer] [facility] MODIFIED [facility] 10/30/2019 of Medic ine [code = 4537-7] Future Scheduled BMI FOLLOW UP PLAN [employer] [facility] [code = BMI FOLLOW UP of Med icine PLAN] Future Scheduled FALL SCREEN [code = [employer] FALL SCREEN] of Medicine Future Scheduled MEDICARE AWV (Initial) [employer] [facility] [code = MEDICARE AWV of Medi cine (Initial)] Future Scheduled MAMMOGRAM EVERY 2 [facility] Test YEARS [code = of Medicine MAMMOGRAM EVERY 2 YEARS] Future Scheduled FLU VACCINE > 6 MONTHS [employer] [facility] [code = FLU VACCINE > of Med icine 6 MONTHS] Future Scheduled TETANUS SHOT (ADULT) [employer] [facility] [code = TETANUS SHOT of Medi cine (ADULT)] Future Scheduled COLON CANCER [facility] [employer] Test SCREENING: COLONOSCOPY of Me dicine [code = COLON CANCER SCREENING: COLONOSCOPY] Future Scheduled NE MOTOR &/SENS 3-4 Ordered: [employer] [facility] NRV CNDJ PRECONF 11/15/2019 of Medicine ELTRODE LIMB [code = 25902] Future Scheduled NE NEEDLE EMG EA Ordered: [facility] [employer] Test EXTREMTY W/PARASPINL 11/15/2019 of Medi cine AREA COMPLETE [code = 90120] Future Scheduled BMI FOLLOW UP PLAN [employer] Test [code = BMI FOLLOW UP of Med icine PLAN] Future Scheduled MEDICARE AWV (Initial) [employer] Test [code = MEDICARE AWV of Medi cine (Initial)] Future Scheduled MAMMOGRAM EVERY 2 [facility] Test YEARS [code = of Medicine MAMMOGRAM EVERY 2 YEARS] Future Scheduled FLU VACCINE > 6 MONTHS [employer] [facility] [code = FLU VACCINE > of Med icine 6 MONTHS] Future Scheduled FALL SCREEN [code = [employer] FALL SCREEN] of Medicine Future Scheduled TETANUS SHOT (ADULT) [employer] [facility] [code = TETANUS SHOT of Medi cine (ADULT)] Future Scheduled COLON CANCER [facility] [employer] Test SCREENING: COLONOSCOPY of Me dicine [code = COLON CANCER SCREENING: COLONOSCOPY] Future Scheduled MEDICARE AWV (Initial) [employer] Test [code = MEDICARE AWV of Medi cine (Initial)] Future Scheduled MAMMOGRAM EVERY 2 [facility] Test YEARS [code = of Medicine MAMMOGRAM EVERY 2 YEARS] Future Scheduled BMI FOLLOW UP PLAN [employer] Test [code = BMI FOLLOW UP of Med icine PLAN] Future Scheduled FALL SCREEN [code = [employer] FALL SCREEN] of Medicine Future Scheduled TETANUS SHOT (ADULT) [employer] [facility] [code = TETANUS SHOT of Medi cine (ADULT)] Future Scheduled COLON CANCER [facility] [employer] Test SCREENING: COLONOSCOPY of Me dicine [code = COLON CANCER SCREENING: COLONOSCOPY] Future Scheduled MEDICARE AWV (Initial) [employer] [facility] [code = MEDICARE AWV of Medi cine (Initial)] Future Scheduled MAMMOGRAM EVERY 2 [facility] Test YEARS [code = of Medicine MAMMOGRAM EVERY 2 YEARS] Future Scheduled BMI FOLLOW UP PLAN [employer] [facility] [code = BMI FOLLOW UP of Med icine PLAN] Future Scheduled FALL SCREEN [code = [employer] FALL SCREEN] of Medicine Future Scheduled TETANUS SHOT (ADULT) [employer] [facility] [code = TETANUS SHOT of Medi cine (ADULT)] Future Scheduled COLON CANCER [facility] [employer] Test SCREENING: COLONOSCOPY of Me dicine [code = COLON CANCER SCREENING: COLONOSCOPY] Future Scheduled MEDICARE AWV (Initial) [employer] [facility] [code = MEDICARE AWV of Medi cine (Initial)] Future Scheduled MAMMOGRAM EVERY 2 [facility] Test YEARS [code = of Medicine MAMMOGRAM EVERY 2 YEARS] Future Scheduled BMI FOLLOW UP PLAN [employer] [facility] [code = BMI FOLLOW UP of Med icine PLAN] Future Scheduled FALL SCREEN [code = [employer] FALL SCREEN] of Medicine Future Scheduled TETANUS SHOT (ADULT) [employer] [facility] [code = TETANUS SHOT of Medi cine (ADULT)] Future Scheduled COLON CANCER [facility] [employer] Test SCREENING: COLONOSCOPY of Me dicine [code = COLON CANCER SCREENING: COLONOSCOPY] Future Scheduled COVID-19 Vaccine [facility] Test Evaluation [code = of Medici ne COVID-19 Vaccine Evaluation] Future Scheduled MEDICARE AWV (Initial) [employer] [facility] [code = MEDICARE AWV of Medi cine (Initial)] Future Scheduled MAMMOGRAM EVERY 2 [facility] Test YEARS [code = of Medicine MAMMOGRAM EVERY 2 YEARS] Future Scheduled BMI FOLLOW UP PLAN [employer] [facility] [code = BMI FOLLOW UP of Med icine PLAN] Future Scheduled COLON CANCER [facility] [employer] Test SCREENING: COLONOSCOPY of Me dicine [code = COLON CANCER SCREENING: COLONOSCOPY] Future Scheduled FALL SCREEN [code = [employer] FALL SCREEN] of Medicine Future Scheduled TETANUS SHOT (ADULT) [employer] [facility] [code = TETANUS SHOT of Medi cine (ADULT)] Future Scheduled MEDICARE AWV (Initial) [employer] [facility] [code = MEDICARE AWV of Medi cine (Initial)] Future Scheduled MAMMOGRAM EVERY 2 [facility] Test YEARS [code = of Medicine MAMMOGRAM EVERY 2 YEARS] Future Scheduled BMI FOLLOW UP PLAN [employer] [facility] [code = BMI FOLLOW UP of Med icine PLAN] Future Scheduled COLON CANCER [facility] [employer] Test SCREENING: COLONOSCOPY of Me dicine [code = COLON CANCER SCREENING: COLONOSCOPY] Future Scheduled FALL SCREEN [code = [employer] FALL SCREEN] of Medicine Future Scheduled TETANUS SHOT (ADULT) [employer] [facility] [code = TETANUS SHOT of Medi cine (ADULT)] Future Scheduled NE TANGENTIAL BIOPSY Ordered: [employer] [facility] SKIN SINGLE LESION 08/29/2020 of Medici ne [code = 57624] Future Scheduled NE INJECTION INTO SKIN Ordered: [employer] [facility] LESIONS, UP TO 7 [code 08/29/2020 of Me dicine = 23624] Future Scheduled MEDICARE AWV (Initial) [employer] [facility] [code = MEDICARE AWV of Medi cine (Initial)] Future Scheduled Screening for [facility] [employer] [facility] malignant neoplasm of of Med icine breast (procedure) [code = 934715450] Future Scheduled FLU VACCINE > 6 MONTHS [employer] [facility] [code = FLU VACCINE > of Med icine 6 MONTHS] Future Scheduled BMI FOLLOW UP PLAN [employer] [facility] [code = BMI FOLLOW UP of Med icine PLAN] Future Scheduled Screening for [employer] [facility] malignant neoplasm of of Med icine colon (procedure) [code = 971696990] Future Scheduled FALL SCREEN [code = [employer] FALL SCREEN] of Medicine Future Scheduled TETANUS SHOT (ADULT) [employer] [facility] [code = TETANUS SHOT of Medi cine (ADULT)] Future Scheduled VITAMIN B12 & FOLIC Ordered: [employer] [facility] ACID [code = NOCPT] 09/09/2020 of Medic ine Future Scheduled PROTEIN Ordered: [facility] [employer] Test ELECTROPHORESIS - 09/09/2020 of Medicin e REFLEX TO IMMUNOFIXATION [code = NOCPT] Future Scheduled CBC W/AUTO DIFF WITH Ordered: [employer] [facility] PLATELETS [code = 09/09/2020 of Medicin e 28782-8] Future Scheduled BASIC METABOLIC PANEL Ordered: [employer] [facility] [code = 67195-5] 09/09/2020 of Medicine Future Scheduled CK [code = 2157-6] Ordered: [employer] [facility] 09/09/2020 of Medicine Future Scheduled VITAMIN D 25 HYDROXY Ordered: [employer] Test [code = 1989-3] 09/09/2020 of Medicine Future Scheduled PHOSPHORUS [code = Ordered: [employer] [facility] 2777-1] 09/09/2020 of Medicine Future Scheduled MEDICARE AWV (Initial) [employer] [facility] [code = MEDICARE AWV of Medi cine (Initial)] Future Scheduled Screening for [employer] [facility] malignant neoplasm of of Med icine breast (procedure) [code = 759310857] Future Scheduled FLU VACCINE > 6 MONTHS [employer] [facility] [code = FLU VACCINE > of Med icine 6 MONTHS] Future Scheduled BMI FOLLOW UP PLAN [employer] [facility] [code = BMI FOLLOW UP of Med icine PLAN] Future Scheduled Screening for [employer] [facility] malignant neoplasm of of Med icine colon (procedure) [code = 883376409] Future Scheduled FALL SCREEN [code = [employer] FALL SCREEN] of Medicine Future Scheduled TETANUS SHOT (ADULT) [employer] [facility] [code = TETANUS SHOT of Medi cine (ADULT)] Future Scheduled CBC W/AUTO DIFF WITH Ordered: [employer] [facility] PLATELETS [code = 02/14/2019 of Medicin e 72616-2] Future Scheduled SEDIMENTATION RATE Ordered: [employer] [facility] MODIFIED WESTERGREN 02/14/2019 of Medic ine [code = 4537-7] Future Scheduled COMPREHENSIVE Ordered: [facility] Test METABOLIC PANEL [code 02/14/2019 of Med icine = 88287-7] Future Scheduled C-REACTIVE PROTEIN Ordered: [employer] [facility] [code = 1988-5] 02/14/2019 of Medicine Future Scheduled RAVIN W REFLEX TITER Ordered: [employer] [facility] [code = NOCPT] 02/14/2019 of Medicine Future Scheduled DNA (DS) ANTIBODY, Ordered: [employer] [facility] CRITHIDIA IFA W/RX 02/14/2019 of Medici ne TITER [code = 6457-6] Future Scheduled SJOGREN'S SS-A AND Ordered: [employer] [facility] SS-B ANTIBODIES [code 02/14/2019 of Med icine = NOCPT] Future Scheduled DEXA BONE DENSITY 2 1 Occurrences [facility] Test SITES [code = 37426-3] starting of Me dicine 09/09/2020 until 03/11/2022 Future Scheduled MRI BRAIN W WO 1 Occurrences [facility] Test CONTRAST [code = starting of Medicine 74423-0] 09/09/2020 until 09/09/2021 Future Scheduled EMG PM&R [code = 1 Occurrences [facility] Test 18889] starting of Medicine 11/01/2019 until 10/31/2020 Future Scheduled COLONOSCOPY W MAC GI 1 Occurrences [employer] [facility] DEPT [code = 20099] starting of Medic ine 03/21/2020 until 09/19/2020 Future Scheduled XR ANKLE LEFT 3 VIEWS 1 Occurrences [employer] [facility] (COMPLETE) [code = [place] [address]-1] 11/01/2019 until 06/02/2020 Future Scheduled CBC W/AUTO DIFF WITH 1 Occurrences [employer] [facility] PLATELETS [code = starting of Medicin e 46181-9] 03/07/2019 until 09/06/2019 Future Scheduled SEDIMENTATION RATE 1 Occurrences [employer] [facility] MODIFIED WESTERGREN starting of Medic ine [code = 4537-7] 03/07/2019 until 09/06/2019 Future Scheduled COMPREHENSIVE 1 Occurrences [facility] [employer] Test METABOLIC PANEL [code starting of Med icine = 51505-0] 03/07/2019 until 09/06/2019 Future Scheduled C-REACTIVE PROTEIN 1 Occurrences [employer] [facility] [code = 1988-5] starting of Medicine 03/07/2019 until 09/06/2019 Encounters Start End Encounter Admission Attending Care Care Encounter Source Date/Time Date/Time Type Type Clinicians Facility Department ID 2022-07-01 Outpatient Daxa CORMIER [facility] [id number] Common 13:35:02 [id number] [facility] 2022-04-23 Outpatient Daxa Cormier [facility] [id number] Common 15:02:03 [id number] [facility] 2021-10-23 Outpatient CormierDaxa [facility] [id number] Common 13:45:03 [facility] 2021-02-26 Outpatient VIVEK RODRIGUEZ Surgery [id number] [facility] 12:59:25 BIANCA 2022-09-02 2022-09-[address] [facility] [id number] [facility] 00:00:00 00:00:00 [facility] 2022-09-02 2022-09-[address] [facility] [id number] [facility] 00:00:00 00:00:00 [facility] 2022-06-23 2022-06-[address] [facility] [id number] [facility] 10:56:01 13:31:46 [facility]RI[facility] 2022-06-15 2022-06-15 [facility] Tiffany [facility] [id number] [facility] 12:17:18 23:59:00 [facility] 2022-06-15 2022-06-15 Outpatient TIFFANY [facility] [id number] [facility] 12:17:18 23:59:00 ANDRIA 2022-06-15 2022-06-15 [facility] [id number] 12:17:18 23:59:00 Encounter Andria [facility] [place] 2022-06-15 2022-06-15 Office MARY BETH [place] [id number] [facility] 10:30:00 12:54:18 Visit Andria M AMBULATOR 350.1.13.21 College Y 0.2.7.2.686 of [id number] Medi miladis 370 e 2022-06-15 2022-06-15 Outside [facility] [id number] 00:00:00 00:00:00 Orders Andria Persaud [facility] 2022-06-15 2022-06-15 Orders [facility] [id number] 00:00:00 00:00:00 Only Andria Persaud [facility] 2022-06-15 2022-06-15 Outside [facility] [id number] 00:00:00 00:00:00 Orders Andria Persaud [facility] 2022-06-15 2022-06-15 Orders [facility] [id number] 00:00:00 00:00:00 [facility] 2022-04-27 2022-04-27 OFFICE [facility] [id number] Co mmon 00:00:00 00:00:00 VISIT Spirit ESTAB PT - [facility] 2022-02-16 2022-02-16 Office [facility] [id number] [facility] 09:14:09 09:14:09 Visit ANDRIA AMBULATOR 350.1.13.21 College Y 0.2.7.2.686 of [id number] [facility] miladis 370 e 2021-11-06 2021-11-06 (TEL) [facility] [id number] Co mmon 00:00:00 00:00:00 [facility] 2021-10-23 2021-10-23 [facility] [id number] Co mmon 00:00:00 00:00:00 VISIT NEW Spir it PT LEVEL 4 - [facility] 2021-08-07 2021-08-07 Office HAILY BORDEN [id number] [facility] 12:47:54 15:45:52 Visit AMBULATOR 350.1.13.21 College Y 0.2.7.2.686 of [id number] Medi miladis 300 e 2021-07-25 2021-07-25 Office HAILY BORDEN [id number] [facility] 09:12:45 09:51:18 Visit AMBULATOR 350.1.13.21 College Y 0.2.7.2.686 of [id number] Medi miladis 300 e 2021-07-22 2021-07-22 Office VERONICA [place]inas [id number] [facility] 14:30:00 16:08:04 Visit Andria M AMBULATOR 350.1.13.21 College Y 0.2.7.2.686 of [id number] Medi miladis 370 e 2021-06-16 2021-06-16 Office HAILY BORDEN [id number] [facility] 11:44:32 14:18:06 Visit AMBULATOR 350.1.13.21 College Y 0.2.7.2.686 of [id number] Medi miladis 300 e 2021-04-22 2021-04-22 Office VERONICA SALINAS [id number] [facility] 12:57:32 14:17:05 Visit ANDRIA AMBULATOR 350.1.13.21 College Y 0.2.7.2.686 of [id number] Medi miladis 370 e 2021-01-15 2021-01-15 Office VERONICA Salinas 1.2.840.114 [id number] [facility] 14:24:25 14:54:25 Visit Andria M AMBULATOR 350.1.13.21 College Y 0.2.7.2.686 of [id number] Medi miladis 370 e 2021-01-01 2021-01-[address] [facility] [id number] [facility] 10:46:53 13:22:08 JONATHON Park e of Medicin e 2020-12-03 2020-12-03 Outpatient BCM BCM [id number] [facility] 13:36:42 13:36:42 Roxanneshamika e of Medicin e 2020-12-03 2020-12-03 Office VERONICA Willis 1.2.840.114 [id number] [facility] 12:56:20 13:16:20 Visit Rod Troy AMBULATOR 350.1.13.21 College Y 0.2.7.2.686 of [id number] Medi miladis 600 e 2020-10-04 2020-10-04 Office VERONICA Salinas 1.2.840.114 [id number] [facility] 13:51:57 15:17:27 Visit Andria Schaeffer AMBULATOR 350.1.13.21 College Y 0.2.7.2.686 of [id number] Medi miladis 370 e 2020-10-03 2020-10-03 Office VERONICA WATERS 1.2.840.114 [id number] [facility] 09:50:50 12:57:57 Visit JONATHON AMBULATOR 350.1.13.21 College Y 0.2.7.2.686 of [id number] Medi miladis 800 e 2020-09-09 2020-09-09 Office Josie Wood BC 1.2.840.114 [id number] [facility] 14:30:34 14:49:42 Visit Alma AMBULATOR 350.1.13.21 College Y 0.2.7.2.686 of [id number] Medi miladis 800 e 2020-08-29 2020-08-29 Office Haily Borden BCLaury 1.2.840.114 [id number] [facility] 12:01:34 12:16:34 Visit AMBULATOR 350.1.13.21 College Y 0.2.7.2.686 of [id number] Medi miladis 300 e 2020-07-05 2020-07-05 Office VERONICA Salinas 1.2.840.114 [id number] [facility] 14:28:38 15:24:38 Visit Andria M AMBULATOR 350.1.13.21 College Y 0.2.7.2.686 of [id number] Medi miladis 370 e 2020-06-14 2020-06-14 Outpatient BCM BC [id number] [facility] 11:55:41 12:36:04 Colleg e of Medicin e 2020-06-14 2020-06-14 Office Josie Wood 1.2.840.114 [id number] [facility] 10:44:50 12:22:24 Visit Reji-Agnes AMBULATOR 350.1.13.21 College Y 0.2.7.2.686 of [id number] Medi miladis 800 e 2020-03-22 2020-03-22 Outpatient SLEH SLE [id number] [facility] 00:00:00 00:00:00 2020-03-21 2020-03-21 Office VERONICA Hartley 1.2.840.114 [id number] [facility] 13:43:25 16:39:34 Visit Aiden M. AMBULATOR 350.1.13.21 College Y 0.2.7.2.686 of [id number] Medi miladis 325 e 2020-03-19 2020-03-19 Emergency ER [facility] Emergency [id number] [facility] 16:31:00 16:31:00 2020-03-06 2020-03-06 Office VERONICA Salinas 1.2.840.114 [id number] [facility] 11:17:20 12:20:14 Visit Andria M AMBULATOR 350.1.13.21 College Y 0.2.7.2.686 of [id number] Medi miladis 370 e 2020-03-04 2020-03-04 Office Josie Wood 1.2.840.114 [id number] [facility] 10:46:17 13:17:20 Visit Reji-Agnes AMBULATOR 350.1.13.21 College Y 0.2.7.2.686 of [id number] Medi miladis 800 e 2019-11-15 2019-11-15 Office VERONICA Engle 1.2.840.114 [id number] [facility] 10:36:53 11:36:53 Visit Manuela AMBULATOR 350.1.13.21 College G. Y 0.2.7.2.686 of [id number] Medi miladis 800 e 2019-10-30 2019-10-30 Office Josie Wood VERONICA 1.2.840.114 [id number] [facility] 13:17:18 15:36:56 Visit Alma AMBULATOR 350.1.13.21 College Y 0.2.7.2.686 of [id number] Medi miladis 800 e 2019-10-03 2019-10-03 Office VERONICA Salinas 1.2.840.114 [id number] [facility] 11:08:20 12:14:33 Visit Andria M AMBULATOR 350.1.13.21 College Y 0.2.7.2.686 of [id number] Medi miladis 370 e 2019-03-07 2019-03-07 Office VERONICA Salinas 1.2.840.114 [id number] [facility] 10:56:53 12:27:03 Visit Andria M AMBULATOR 350.1.13.21 College Y 0.2.7.2.686 of [id number] Medi miladis 370 e 2019-02-14 2019-02-14 Office VERONICA Salinas 1.2.840.114 [id number] [facility] 10:24:08 11:09:08 Visit Andria M AMBULATOR 350.1.13.21 College Y 0.2.7.2.686 of [id number] [facility] miladis 370 e Results Test Description Test Time Test Comments Results Result [facility] Comments RAD, BONE DENSITY 2022-06-15 Reason for STUDY 12:59:00 Exam:->Osteopenia , unspecified [facility] 1950 Sex: F *FINAL REPORT EXAM: RAD, BONE DENSITY STUDY History: OsteopeniaComparison : None available DISCUSSION:Evaluatio n of the left hip and lumbar spine was performed utilizing DEXA Hologic bone densitometer. The study is technically adequate.The patient's fracture risk is compared to an age-matched control.The patient denies prior surgery/fracture of the spine, hips or forearm. Left hip femoral neck bone mineral density: 0.562 g/cm2, T-score is -2.6, Z-score is -0.7. Left hip total bone mineral density: 0.819 g/cm2, T-score is -1, Z-score is 0.6. Lumbar spine total bone mineral density: 0.945 gm/cm2, T-score is -0.9, Z-score is 1.3. IMPRESSION: Bone mineralization by WHO Classification is Osteoporosis, the fracture risk is increased. Signed: Dioni Cook Verified Date/Time: 06/15/2022 12:59:09 Reading Location: [facility] Reading Room [address] [place] [address] REHENSIVE METABOLIC PANEL 2021-07-23 11:28:57 Test Item Value Reference Range Interpretation Comme nts GLUCOSE (test code = 2345-7) See_Comment [Automated message] The system which generated this result transmitted ref erence range: 70 - 99 MG/DL. The r eference range was not used to int erpret this result as normal/abnor mal. BLOOD UREA NITROGEN (test code See_Comment [Automated message] The system = 4531-6) which generated this result transmitted ref erence range: 8 - 23 MG/DL. The r eference range was not used to int erpret this result as normal/abnor mal. CREATININE (test code = See_Comment [Au tomated message] The system 5039-0) which generated this result transmitted ref erence range: 0.60 - 1.30 MG/DL. T he reference range was not used to interpret this result as robin l/abnormal. EGFR (test code = 55340-1) See_Comment [Automated message] The system which generated this result transmitted ref erence range: >60 ML/MIN/1.73. Th e reference range was not used to interpret this result as robin l/abnormal. BUN/CREAT RATIO (test code = See_Comment [Automated message] The system 3097-3) which generated this result transmitted ref erence range: 6 - 28 RATIO. The r eference range was not used to int erpret this result as normal/abnor mal. SODIUM (test code = 2951-2) See_Comment [Automated message] The system which generated this result transmitted ref erence range: 133 - 146 MEQ/L. The reference range was not used to int erpret this result as normal/abnor mal. POTASSIUM (test code = 2823-3) See_Comment [Automated message] The system which generated this result transmitted ref erence range: 3.5 - 5.4 MEQ/L. The reference range was not used to int erpret this result as normal/abnor mal. CHLORIDE (test code = 2075-0) See_Comment [Automated message] The system which generated this result transmitted ref erence range: 95 - 107 MEQ/L. The reference range was not used to int erpret this result as normal/abnor mal. CO2 (test code = 1963-8) See_Comment [A utomated message] The system which generated this result transmitted ref erence range: 19 - 31 MEQ/L. The r eference range was not used to int erpret this result as normal/abnor mal. CALCIUM (test code = 64868-4) See_Comment [Automated message] The system which generated this result transmitted ref erence range: 8.5 - 10.5 MG/DL. The reference range was not used to interpret this result as robin l/abnormal. PROTEIN TOTAL (test code = See_Comment [Automated message] The system 2885-2) which generated this result transmitted ref erence range: 6.1 - 8.3 G/DL. The r eference range was not used to int erpret this result as normal/abnor mal. ALBUMIN (test code = 60640-9) See_Comment [Automated message] The system which generated this result transmitted ref erence range: 3.5 - 5.2 G/DL. The r eference range was not used to int erpret this result as normal/abnor mal. GLOBULINS, SERUM, TOTAL (test See_Comment [Automated message] The system code = 16009-2) which genera rogelio this result transmitted ref erence range: 1.9 - 3.7 G/DL. The r eference range was not used to int erpret this result as normal/abnor mal. A/G RATIO (test code = 1759-0) See_Comment [Automated message] The system which generated this result transmitted ref erence range: 1.0 - 2.6 RATIO. The reference range was not used to int erpret this result as normal/abnor mal. BILIRUBIN TOTAL (test code = See_Comment [Automated message] The system 1974-06) which generated this result transmitted ref erence range: <=1.2 MG/DL. The refe rence range was not used to interpr et this result as normal/abnormal . ALKALINE PHOSPHATASE (test 68 U/L 40-142 code = 6768-6) AST (SGOT) (test code = 23 U/L 9-40 1920-8) ALT (SGPT) (test code = 22 U/L 5-40 Unl ess Otherwise Indicated, All 1744-2) Testing Perform ed At: [place] [address] Layup Worker: Amelia Mcdermott M.D. CLIA Number [id number] [place] [id number] [facility] [id number] 11:28:50 Test Item Value Reference Range Interpretation Comments C-REACTIVE PROTEIN <0.3 See_Comment Unless O therwise (test code = 1987-09) Indicat ed, All Testing Performed At: [place] [address] Laborator y Director: Thu BarneyIA Number [id number] [place]. [id number] [Automated mess age] The system which ge nerated this result tra nsmitted reference range : <0.5 MG/DL. The refe rence range was not used to interpret this result as normal/abnormal . [facility]IM[facility] MODIFIED [id number] 09:06:43 Test Item Value Reference Range Interpretation Comments ERYTHROCYTE SEDIMENTATION See_Comment U nless Otherwise RATE (test code = 4537-7) In dicated, All Testing Performed At: C linical Pathology [facility], [address] [place] [address] [place] [address] Director: Amelia Mcdermott M.D. CLIA Number [id number] [employer] [place]. [id number] [Autom ated message] The sy stem which generated this result transmit rogelio reference range : 0 - 20 MM/HOUR. The re ference range was not u sed to interpret this result as normal/abnor mal. [facility] W/AUTO DIFF WITH [id number] 08:24:25 Test Item Value Reference Range Interpretation Comments WHITE BLOOD CELL COUNT See_Comment [Aut omated message] (test code = 92414-4) The sy stem which generated this result transmitted ref erence range: 3.5 - 11 .0 K/UL. The refer ence range was not u sed to interpret this result as normal/abnor mal. RED BLOOD CELL COUNT See_Comment L [Autom ated message] (test code = 41507-6) The sy stem which generated this result transmitted ref erence range: 3.80 - 5 .40 M/UL. The refer ence range was not u sed to interpret this result as normal/abnor mal. HEMOGLOBIN (test code = See_Comment [Au tomated message] 718-7) The system whic h generated this result transmitted ref erence range: 11.5 - 1 5.5 G/DL. The refer ence range was not u sed to interpret this result as normal/abnor mal. HEMATOCRIT (test code = 33.9 % 34.0-45.0 L 82853-9) MEAN CORPUSCULAR VOLUME 106.6 fL 80.0-99.0 H (test code = 14173-0) MEAN CORPUSCULAR 37.7 PG 25.0-33.0 H HEMOGLOBIN (test code = 46439-7) MEAN CORPUSCULAR See_Comment [Automated message] HEMOGLOBIN CONC (test The sy stem which code = 48276-3) generated th is result transmitted ref erence range: 31.0 - 3 6.0 G/DL. The refer ence range was not u sed to interpret this result as normal/abnor mal. RED CELL DISTRIBUTION 14.3 % 11.5-15.0 WIDTH (test code = 11259-7) NEUTROPHILS % (test code 48.7 % = 71601-3) LYMPHOCYTES % (test code 42.4 % = 42459-3) MONOCYTES % (test code = 6.0 % 34745-8) EOSINOPHILS % (test code 1.7 % = 61389-6) BASOPHILS % (test code = 1.0 % 90482-1) IMMATURE GRANULOCYTES 0.2 % (test code = 57049-2) NUCLEATED RBC'S See_Comment Unless Othe rwise MYELOPEROX STAIN (test Indic ated, All code = 51299-5) Testing Perf ormed At: Clinical Pathol [facility], [address] [place] [address] [facility] y Director: Amelia Mcdermott M.D. [place] Number [id number] [employer] [place] o. [id number] [Autom ated message] The sy stem which generated this result transmit rogelio reference range : 0.00 - 0.11 K/UL. Th e reference range was not used to int erpret this result as normal/abnormal . PLATELET COUNT (test See_Comment [Autom ated message] code = 10838-0) The system w [facility] generated this result transmitted ref erence range: 130 - 40 0 K/UL. The refer ence range was not u sed to interpret this result as normal/abnor mal. NEUTROPHILS ABSOLUTE See_Comment [Autom ated message] COUNT (test code = The syste m which 53044-0) generated this result transmitted ref erence range: 1.50 - 7 .50 K/UL. The refer ence range was not u sed to interpret this result as normal/abnor mal. LYMPHOCYTES ABSOLUTE See_Comment [Autom ated message] COUNT (test code = The syste m which 08283-6) generated this result transmitted ref erence range: 1.00 - 4 .00 K/UL. The refer ence range was not u sed to interpret this result as normal/abnor mal. MONOCYTES ABSOLUTE COUNT See_Comment [A utomated message] (test code = 00300-4) The sy stem which generated this result transmitted ref erence range: 0.20 - 1 .00 K/UL. The refer ence range was not u sed to interpret this result as normal/abnor mal. BASOPHILS ABSOLUTE COUNT See_Comment [A utomated message] (test code = 11738-1) The sy stem which generated this result transmitted ref erence range: 0.00 - 0 .20 K/UL. The refer ence range was not u sed to interpret this result as normal/abnor mal. IMMATURE GRANS (ABS) See_Comment [Autom ated message] (test code = 9987) The syste m which generated this result transmitted ref erence range: 0.00 - 0 .10 K/UL. The refer ence range was not u sed to interpret this result as normal/abnor mal. Lab Interpretation (test Abnormal code = 76999-0) [facility] [id number] 10:02:24 Test Item Value Reference Range Interpretation Comments GLUCOSE (test code = See_Comment [Autom ated message] The 2345-7) system which ge nerated this result tra nsmitted reference range : 70 - 99 MG/DL. The refe rence range was not u sed to interpret this result as normal/abnormal . BLOOD UREA NITROGEN See_Comment [Automa rogelio message] The (test code = 3091-6) system which generated this result tra nsmitted reference range : 8 - 23 MG/DL. The refe rence range was not u sed to interpret this result as normal/abnormal . CREATININE (test code = See_Comment [Au tomated message] The 2160-0) system which ge nerated this result tra nsmitted reference range : 0.60 - 1.30 MG/DL. The reference range was not used to interpr et this result as normal/abnormal . EGFR AA (test code = See_Comment [Autom ated message] The 30024-5) system which ge nerated this result tra nsmitted reference range : >60 ML/MIN/1.73. Th e reference range was not used to interpr et this result as normal/abnormal . EGFR (test code = See_Comment [Automate d message] The 55235-2) system which ge nerated this result tra nsmitted reference range : >60 ML/MIN/1.73. Th e reference range was not used to interpr et this result as normal/abnormal . BUN/CREAT RATIO (test See_Comment [Auto mated message] The code = 3097-3) system which generated this result tra nsmitted reference range : 6 - 28 RATIO. The refe rence range was not u sed to interpret this result as normal/abnormal . SODIUM (test code = See_Comment [Automa rogelio message] The 295-) system which ge nerated this result tra nsmitted reference range : 133 - 146 MEQ/L. The reference range was not u sed to interpret this result as normal/abnormal . POTASSIUM (test code = See_Comment [Aut omated message] The 2822-3) system which ge nerated this result tra nsmitted reference range : 3.5 - 5.4 MEQ/L. The reference range was not u sed to interpret this result as normal/abnormal . CHLORIDE (test code = See_Comment [Auto mated message] The ) system which ge nerated this result tra nsmitted reference range : 95 - 107 MEQ/L. The reference range was not u sed to interpret this result as normal/abnormal . CO2 (test code = See_Comment [Automated message] The 1962-12) system which ge nerated this result tra nsmitted reference range : 19 - 31 MEQ/L. The refe rence range was not u sed to interpret this result as normal/abnormal . CALCIUM (test code = See_Comment [Autom ated message] The 47006-2) system which ge nerated this result tra nsmitted reference range : 8.5 - 10.5 MG/DL. The reference range was not used to interpr et this result as normal/abnormal . PROTEIN TOTAL (test See_Comment [Automa rogelio message] The code = 2885-2) system which generated this result tra nsmitted reference range : 6.1 - 8.3 G/DL. The r eference range was not u sed to interpret this result as normal/abnormal . ALBUMIN (test code = See_Comment [Autom ated message] The 15312-6) system which ge nerated this result tra nsmitted reference range : 3.5 - 5.2 G/DL. The r eference range was not u sed to interpret this result as normal/abnormal . GLOBULINS, SERUM, TOTAL See_Comment [Au tomated message] The (test code = 07366-3) system which generated this result tra nsmitted reference range : 1.9 - 3.7 G/DL. The r eference range was not u sed to interpret this result as normal/abnormal . A/G RATIO (test code = See_Comment [Aut omated message] The ) system which ge nerated this result tra nsmitted reference range : 1.0 - 2.6 RATIO. The reference range was not u sed to interpret this result as normal/abnormal . BILIRUBIN TOTAL (test See_Comment [Auto mated message] The code = 1974-) system which generated this result tra nsmitted reference range : <=1.2 MG/DL. The refe rence range was not u sed to interpret this result as normal/abnormal . ALKALINE PHOSPHATASE 86 U/L 40-142 (test code = 6768-6) AST (SGOT) (test code = 20 U/L 9-40 1920-8) ALT (SGPT) (test code = 14 U/L 5-40 Unl ess Otherwise 1744-2) Indicated, All Testing Performed At: [facility], [address] [place] [address] [facility] Director: Amelia Mcdermott M.D. CLIA Number [id number] [place] o. [id number] [facility] [id number] 10:01:36 Test Item Value Reference Range Interpretation Comments C-REACTIVE PROTEIN (test See_Comment H Un less Otherwise code = 1987-) Indicated, Al l Testing Perform ed At: [facility], [address] [place] [address] Laborator y Director: Amelia Mcdermott M.D. CLIA Number [id number] [employer] [place]. [id number] [Autom ated message] The sy stem which generated this result transmit rogelio reference range : <0.5 MG/DL. The refe rence range was not u sed to interpret this result as normal/abnor mal. Lab Interpretation (test Abnormal code = 22896-1) [facility]jo[facility]IMENT[facility]ATE MODIFIED [id number] 09:00:06 Test Item Value Reference Range Interpretation Comments ERYTHROCYTE See_Comment H Unless Otherwi se SEDIMENTATION RATE (test Ind icated, All code = 4537-7) Testing Perfo rmed At: [facility], [address] [facility] [place] [address] Laborator y Director: Thu HughesIA Number [id number] [employer] [place] o. [id number] [Autom ated message] The sy stem which generated this result transmit rogelio reference range : 0 - 20 MM/HOUR. The reference range was not used to int erpret this result as normal/abnormal . Lab Interpretation (test Abnormal code = 06672-7) [facility] W/AUTO DIFF WITH [id number] 07:44:26 Test Item Value Reference Range Interpretation Comments WHITE BLOOD CELL See_Comment [Automated message] The COUNT (test code = system wh ich generated 14880-8) this result tra nsmitted reference range : 3.5 - 11.0 K/UL. The reference range was not u sed to interpret this result as normal/abnormal . RED BLOOD CELL COUNT See_Comment L [Autom ated message] The (test code = 13845-5) system which generated this result tra nsmitted reference range : 3.80 - 5.40 M/UL. The reference range was not u sed to interpret this result as normal/abnormal . HEMOGLOBIN (test code See_Comment [Auto mated message] The = 718-7) system which ge nerated this result tra nsmitted reference range : 11.5 - 15.5 G/DL. The reference range was not u sed to interpret this result as normal/abnormal . HEMATOCRIT (test code 34.2 % 34.0-45.0 = 83298-1) MEAN CORPUSCULAR 104.9 fL 80.0-99.0 H VOLUME (test code = 15968-7) MEAN CORPUSCULAR 36.5 PG 25.0-33.0 H HEMOGLOBIN (test code = 76155-7) MEAN CORPUSCULAR See_Comment [Automated message] The HEMOGLOBIN CONC (test system which generated code = 40392-2) this result transmitted reference range : 31 - 36 G/DL. The refer ence range was not u sed to interpret this result as normal/abnormal . RED CELL DISTRIBUTION 14.1 % 11.5-15.0 WIDTH (test code = 05388-6) NEUTROPHILS % (test 55.6 % 40.0-75.0 code = 75226-2) LYMPHOCYTES % (test 36.0 % 20.0-45.0 code = 86644-4) MONOCYTES % (test 5.8 % 4.0-12.0 code = 76894-3) EOSINOPHILS % (test 1.3 % 0.0-7.0 code = 81877-4) BASOPHILS % (test 1.1 % 0.0-2.0 code = 54046-8) IMMATURE GRANULOCYTES 0.2 % 0.0-1.0 (test code = 58565-5) NUCLEATED RBC'S See_Comment Unless Othe rwise MYELOPEROX STAIN Indicated, All Testing (test code = 52674-8) Perfor med At: Clinical Pathology [facility], [address] [place] [address] Director: Amelia Mcdermott M.D. CLIA Number [id number] [employer] Acc[employer] N o. [id number] [Autom ated message] The sy stem which generated this result transmit rogelio reference range : 0.00 - 0.11 K/UL. The reference range was not u sed to interpret this result as normal/abnormal . PLATELET COUNT (test See_Comment H [Autom ated message] The code = 30114-0) system which generated this result tra nsmitted reference range : 130 - 400 K/UL. The r eference range was not u sed to interpret this result as normal/abnormal . NEUTROPHILS ABSOLUTE See_Comment NOTE: EFFECTIVE COUNT (test code = 1, ALL CBC 18557-9) ORDER CODES WIT H WBCDIFFERENTIAL S WILL INCLUDE ABSOLUT E DIFFERENTIALS ( CELLS/UL) WITHAPPROPRIATE REFERENCE RANGE S. INTERFACED SYST EMS OR REPORT ROUTINES SHOULD BE ADJUSTED TO DIS PLAY ABSOLUTE WBC DIFFERENTIALS. AFTERTRANSITION TO ABSOLUTE WBC RE PORTING, CPL WILL ELIMIN ATE REFERENCEINTERV ALS FOR THE RELATIVE WB C DIFFERENTIAL REDUNDANT. [Aut omated message] The sy stem which generated this result transmit rogelio reference range : 1.50 - 7.50 K/UL. The reference range was not u sed to interpret this result as normal/abnormal . LYMPHOCYTES ABSOLUTE See_Comment [Autom ated message] The COUNT (test code = system [facility] generated 63554-5) this result tra nsmitted reference range : 1.00 - 4.00 K/UL. The reference range was not u sed to interpret this result as normal/abnormal . MONOCYTES CSF (test See_Comment [Automa rogelio message] The code = 90834-0) system which generated this result tra nsmitted reference range : 0.20 - 1.00 K/UL. The reference range was not u sed to interpret this result as normal/abnormal . BASOPHILS ABSOLUTE See_Comment [Automat ed message] The COUNT (test code = system ich generated 94834-0) this result tra nsmitted reference range : 0.00 - 0.20 K/UL. The reference range was not u sed to interpret this result as normal/abnormal . IMMATURE GRANS (ABS) See_Comment [Autom ated message] The (test code = 9987) system [facility] generated this result tra nsmitted reference range : 0.00 - 0.10 K/UL. The reference range was not u sed to interpret this result as normal/abnormal . Lab Interpretation Abnormal (test code = 56756-7) [facility]jo[facility]IMENT[facility] R[facility] MODIFIED [id number] 09:36:43 Test Item Value Reference Range Interpretation Comments ERYTHROCYTE See_Comment H Unless Otherwi se SEDIMENTATION RATE (test Ind icated, All code = 4537-7) Testing Perfo rmed At: [facility] [employer], [address] [facility] [place] [address] Laborator y Director: Thu Hughes Number [id number] [employer] Accreditation N o. 30897-02 [Autom ated message] The sy stem which generated this result transmit rogelio reference range : 0 - 20 MM/HOUR. The reference range was not used to int erpret this result as normal/abnormal . Lab Interpretation (test Abnormal code = 06860-6) [facility] [id number] 08:53:02 Test Item Value Reference Range Interpretation Comments C-REACTIVE PROTEIN (test See_Comment H Un less Otherwise code = 1988-5) Indicated, Al l Testing Perform ed At: [facility] [employer], [address] [facility] [place] [address] Laborator y Director: Amelia Mcdermott M.D. CLIA Number [id number] Cap Accreditation N o. [id number] [Autom ated message] The sy stem which generated this result transmit rogelio reference range : <0.5 MG/DL. The refe rence range was not u sed to interpret this result as normal/abnor mal. Lab Interpretation (test Abnormal code = 26504-8) [facility] [id number] 08:52:56 Test Item Value Reference Range Interpretation Comments GLUCOSE (test code = See_Comment [Autom ated message] The 2345-7) system which ge nerated this result tra nsmitted reference range : 70 - 99 MG/DL. The refe rence range was not u sed to interpret this result as normal/abnormal . BLOOD UREA NITROGEN See_Comment [Automa rogelio message] The (test code = 3091-6) system which generated this result tra nsmitted reference range : 8 - 23 MG/DL. The refe rence range was not u sed to interpret this result as normal/abnormal . CREATININE (test code = See_Comment [Au tomated message] The 2160-0) system which ge nerated this result tra nsmitted reference range : 0.60 - 1.30 MG/DL. The reference range was not used to interpr et this result as normal/abnormal . EGFR AA (test code = See_Comment [Autom ated message] The 38033-0) system which ge nerated this result tra nsmitted reference range : >60 ML/MIN/1.73. Th e reference range was not used to interpr et this result as normal/abnormal . EGFR (test code = See_Comment [Automate d message] The 38562-2) system which ge nerated this result tra nsmitted reference range : >60 ML/MIN/1.73. Th e reference range was not used to interpr et this result as normal/abnormal . BUN/CREAT RATIO (test See_Comment [Auto mated message] The code = 3097-3) system which generated this result tra nsmitted reference range : 6 - 28 RATIO. The refe rence range was not u sed to interpret this result as normal/abnormal . SODIUM (test code = See_Comment [Automa rogelio message] The 2951-2) system which ge nerated this result tra nsmitted reference range : 133 - 146 MEQ/L. The reference range was not u sed to interpret this result as normal/abnormal . POTASSIUM (test code = See_Comment [Aut omated message] The 2823-3) system which ge nerated this result tra nsmitted reference range : 3.5 - 5.4 MEQ/L. The reference range was not u sed to interpret this result as normal/abnormal . CHLORIDE (test code = See_Comment [Auto mated message] The ) system which ge nerated this result tra nsmitted reference range : 95 - 107 MEQ/L. The reference range was not u sed to interpret this result as normal/abnormal . CO2 (test code = See_Comment [Automated message] The 1962-12) system which ge nerated this result tra nsmitted reference range : 19 - 31 MEQ/L. The refe rence range was not u sed to interpret this result as normal/abnormal . CALCIUM (test code = See_Comment [Autom ated message] The 27186-2) system which ge nerated this result tra nsmitted reference range : 8.5 - 10.5 MG/DL. The reference range was not used to interpr et this result as normal/abnormal . PROTEIN TOTAL (test See_Comment [Automa rogelio message] The code = 2885-2) system which generated this result tra nsmitted reference range : 6.1 - 8.3 G/DL. The r eference range was not u sed to interpret this result as normal/abnormal . ALBUMIN (test code = See_Comment [Autom ated message] The 45225-7) system which ge nerated this result tra nsmitted reference range : 3.5 - 5.2 G/DL. The r eference range was not u sed to interpret this result as normal/abnormal . GLOBULINS, SERUM, TOTAL See_Comment [Au tomated message] The (test code = 11326-9) system which generated this result tra nsmitted reference range : 1.9 - 3.7 G/DL. The r eference range was not u sed to interpret this result as normal/abnormal . A/G RATIO (test code = See_Comment [Aut omated message] The ) system which ge nerated this result tra nsmitted reference range : 1.0 - 2.6 RATIO. The reference range was not u sed to interpret this result as normal/abnormal . BILIRUBIN TOTAL (test See_Comment [Auto mated message] The code = 1974-2) system which generated this result tra nsmitted reference range : <=1.2 MG/DL. The refe rence range was not u sed to interpret this result as normal/abnormal . ALKALINE PHOSPHATASE 87 U/L 40-142 (test code = 6768-6) AST (SGOT) (test code = 14 U/L 9-40 1920-8) ALT (SGPT) (test code = 11 U/L 5-40 Unl ess Otherwise 1744-2) Indicated, All Testing Performed At: [facility] [address] [place] [address] Director: Amelia Mcdermott M.D. CLIA Number [id number] Cap Accreditation N o. [id number] [facility] W/AUTO DIFF WITH [id number] 08:24:45 Test Item Value Reference Range Interpretation Comments WHITE BLOOD CELL COUNT See_Comment [Aut omated message] (test code = 67142-3) The sy stem which generated this result transmitted ref erence range: 3.5 - 11 .0 K/UL. The refer ence range was not u sed to interpret this result as normal/abnor mal. RED BLOOD CELL COUNT See_Comment L [Autom ated message] (test code = 56125-7) The sy stem which generated this result transmitted ref erence range: 3.80 - 5 .40 M/UL. The refer ence range was not u sed to interpret this result as normal/abnor mal. HEMOGLOBIN (test code = See_Comment L [Au tomated message] 718-7) The system whic h generated this result transmitted ref erence range: 11.5 - 1 5.5 G/DL. The refer ence range was not u sed to interpret this result as normal/abnor mal. HEMATOCRIT (test code = 31.1 % 34-45 L 13811-6) MEAN CORPUSCULAR VOLUME 108.0 fL 80-99 H (test code = 40533-9) MEAN CORPUSCULAR 37.2 PG 25-33 H HEMOGLOBIN (test code = 30547-3) MEAN CORPUSCULAR See_Comment [Automated message] HEMOGLOBIN CONC (test The sy stem which code = 86128-4) generated th is result transmitted ref erence range: 31.0 - 3 6.0 G/DL. The refer ence range was not u sed to interpret this result as normal/abnor mal. RED CELL DISTRIBUTION 14.3 % 11.5-15 WIDTH (test code = 04954-7) NEUTROPHILS % (test code 57.6 % 40-75 = 00337-1) LYMPHOCYTES % (test code 33.9 % 20-45 = 75084-5) MONOCYTES % (test code = 6.0 % 4-12 57529-7) EOSINOPHILS % (test code 1.6 % 0-7 = 61215-7) BASOPHILS % (test code = 0.9 % 0-2 66253-1) PLATELET COUNT (test See_Comment H Unless Otherwise code = 37350-7) Indicated, A ll Testing Perform ed At: [facility], [address] [place] [address] Laborator y Director: Amelia Mcdermott M.D. CLIA Number [id number] Cap Accreditation N o. [id number] [Autom ated message] The sy stem which generated this result transmit rogelio reference range : 130 - 400 K/UL. The reference range was not used to int erpret this result as normal/abnormal . Lab Interpretation (test Abnormal code = 16244-0) [facility] W/AUTO DIFF WITH [id number] 20:09:00 Test Item Value Reference Range Interpretation Comments WHITE BLOOD CELL See_Comment [Automated COUNT (test code = message] The 6690-2) system which generated this result transmitted reference range : 3.4 - 10.8 x10E3/uL. The reference range was not used to interpret this result as normal/abnormal . RED BLOOD CELL COUNT See_Comment L [Autom ated (test code = 96657-5) messag e] The system which generated this result transmitted reference range : 3.77 - 5.28 x10E6/uL. The reference range was not used to interpret this result as normal/abnormal . HEMOGLOBIN (test code 12.0 g/dL 11.1-15.9 = 32600-9) HEMATOCRIT (test code 34.3 % 34-46.6 = 24588-8) MEAN CORPUSCULAR 106 fL 79-97 H VOLUME (test code = 787-2) MEAN CORPUSCULAR 37.2 pg 26.6-33 H HEMOGLOBIN (test code = 785-6) MEAN CORPUSCULAR 35.0 g/dL 31.5-35.7 HEMOGLOBIN CONC (test code = 786-4) RED CELL DISTRIBUTION 14.7 % 11.7-15.4 WIDTH (test code = 788-0) PLATELET COUNT (test See_Comment [Autom ated code = 777-3) message] The system which generated this result transmitted reference range : 150 - 450 x10E3/uL. The reference range was not used to interpret this result as normal/abnormal . NEUTROPHILS % (test 52 % Not Estab. code = 770-8) LYMPHOCYTES % (test 36 % Not Estab. code = 736-9) MONOCYTES % (test 8 % Not Estab. code = 5905-5) EOSINOPHILS % (test 2 % Not Estab. code = 713-8) BASOPHILS % (test 2 % Not Estab. code = 706-2) NEUTROPHILS ABSOLUTE See_Comment [Autom ated COUNT (test code = message] The 751-8) system which generated this result transmitted reference range : 1.4 - 7.0 x10E3/uL. The reference range was not used to interpret this result as normal/abnormal . LYMPHOCYTES ABSOLUTE See_Comment [Autom ated COUNT (test code = message] The 731-0) system which generated this result transmitted reference range : 0.7 - 3.1 x10E3/uL. The reference range was not used to interpret this result as normal/abnormal . MONOCYTES ABSOLUTE See_Comment [Automat ed COUNT (test code = message] The 742-7) system which generated this result transmitted reference range : 0.1 - 0.9 x10E3/uL. The reference range was not used to interpret this result as normal/abnormal . EOSINOPHILS ABSOLUTE See_Comment [Autom ated COUNT (test code = message] The 711-2) system which generated this result transmitted reference range : 0.0 - 0.4 x10E3/uL. The reference range was not used to interpret this result as normal/abnormal . BASOPHILS ABSOLUTE See_Comment [Automat ed COUNT (test code = message] The [employer]) system which generated this result transmitted reference range : 0.0 - 0.2 x10E3/uL. The reference range was not used to interpret this result as normal/abnormal . IMMATURE GRANULOCYTES 0 % Not Estab. (test code = 88117-1) IMMATURE GRANS (ABS) See_Comment [Autom ated (test code = 9987) message] The system which generated this result transmitted reference range : 0.0 - 0.1 x10E3/uL. The reference range was not used to interpret this result as normal/abnormal . HEMATOLOGY COMMENTS Note: Verified by (test code = 2738) microscop ic examination. DELFIN (test code = DELFIN) Performed at: [address] [place] [id number] Director: Richie Multani MD, Phone: [phone] Lab Interpretation Abnormal (test code = 46965-9) [facility] [id number] 20:09:00 Test Item Value Reference Range Interpretation Comments HEMOGLOBIN A1C 5.4 % 4.8-5.6 Prediabetes: (test code = 5.7 - 6.4 4548-4) Diabetes: >6.4 Glycemic contro l for adults with diabetes: <7.0 DELFIN (test code = Performed at: DELFIN) [address] [id number] Director: Richie Multani MD, Phone: [phone] [facility]LIPID [id number] 20:09:00 Test Item Value Reference Range Interpretation Comments CHOLESTEROL (test code = 354 mg/dL 100-199 H 2093-3) TRIGLYCERIDES (test code 213 mg/dL 0-149 H = 2571-8) HDL (test code = 2085-9) 62 mg/dL >39 VLDL CHOLESTEROL CALC 43 mg/dL 5-40 H (VLDLCAL) (test code = 75149-7) LDL CHOLESTEROL 249 mg/dL 0-99 H CALCULATED (test code = 2089-1) DELFIN (test code = DELFIN) Performed at: [address] [place] [address] [id number] Director: Richie Multani MD, Phone: [phone] Lab Interpretation (test Abnormal code = 86951-5) [facility]PROTIME-[id number] 20:09:00 Test Item Value Reference Range Interpretation Comments INR (test code = 0.9-1.2 Reference i nterval 28382-1) is for non-anticoagula rogelio patients.Sugges rogelio INR therapeutic range for Vitam in Kantagonist therapy: Standa rd Dose (moderate intensity therapeutic range): 2.0 - 3 .0 Higher intensit y therapeutic ran ge 2.5 - 3.5 PROTHROMBIN TIME See_Comment [Automated (test code = 4007) message] The system which generated this result transmit rogelio reference range : 9.1 - 12.0 sec. The reference range was not u sed to interpret th is result as normal/abnormal . DELFIN (test code = Performed at: DELFIN) - [employer] [id number] Director: Richie Multani MD, Phone: [phone] [id number] 20:09:00 Test Item Value Reference Range Interpretation Comments PARTIAL See_Comment This test has n ot THROMBOPLASTIN TIME been cinda idated for (test code = 3173-2) monitor ing unfractionated heparintherapy. aPTT-based therapeutic ran ges for unfractiona rogelio heparintherapy have not been established. Fo r general guideli rosalio onHeparin monitoring, ref er to the [employer] Directory of Services. [Automated mess age] The system [employer] generated this result transmit rogelio reference range : 24 - 33 sec. The reference range was not used to interpret this result as normal/abnormal . DELFIN (test code = Performed at: DELFIN) - [employer] [id number] Director: Richie Multani MD, Phone: [phone] [facility] [id number] 20:09:00 Test Item Value Reference Range Interpretation Comments GLUCOSE (test code = 82 mg/dL 65-99 45881-9) BLOOD UREA NITROGEN 14 mg/dL 8-27 (test code = 33360-7) CREATININE (test code 0.66 mg/dL 0.57-1 = 22749-5) EGFR(C)NONAFRICANAM 90 mL/min/1.73 >59 (test code = 36221-2) EGFR(C)AFRICANAMER 104 mL/min/1.73 >59 (test code = 96421-4) BUN/CREAT RATIO (test 05-20 code = 6299-2) SODIUM (test code = 139 mmol/L 134-144 88030-7) POTASSIUM (test code 4.1 mmol/L 3.5-5.2 = 6298-4) CHLORIDE (test code = 99 mmol/L 96-106 9-3) CO2 (test code = 27 mmol/L 20-29 2027-9) CALCIUM (test code = 10.3 mg/dL 8.7-10.3 44119-2) PROTEIN TOTAL (test 7.6 g/dL 6-8.5 code = 2885-2) ALBUMIN (test code = 5.1 g/dL 3.8-4.8 H 1751-7) GLOBULINS, SERUM, 2.5 g/dL 1.5-4.5 TOTAL (test code = 07003-1) A/G RATIO (test code 1.2-2.2 = 1759-0) BILIRUBIN TOTAL (test 0.4 mg/dL 0-1.2 code = 1975-2) ALKALINE PHOSPHATASE See_Comment [Autom ated (test code = 6768-6) message ] The system which generated this result transmitted reference range : 39 - 117 IU/L. The reference range was not used to interpr et this result as normal/abnormal . AST (SGOT) (test code See_Comment [Auto mated = 1920-8) message] The system which generated this result transmitted reference range : 0 - 40 IU/L. Th e reference range was not used to interpret this result as normal/abnormal . ALT (SGPT) (test code See_Comment [Auto mated = 1742-6) message] The system which generated this result transmitted reference range : 0 - 32 IU/L. Th e reference range was not used to interpret this result as normal/abnormal . DELFIN (test code = DELFIN) Performed at: [facility] [id number] Director: Richie Multani MD, Phone: [phone] Lab Interpretation Abnormal (test code = 06703-9) [facility] W/AUTO DIFF WITH [id number] 08:50:19 Test Item Value Reference Range Interpretation Comments WHITE BLOOD CELL COUNT See_Comment [Aut omated message] (test code = 62481-3) The sy stem which generated this result transmitted ref erence range: 3.5 - 10 .0 K/UL. The refer ence range was not u sed to interpret this result as normal/abnor mal. RED BLOOD CELL COUNT See_Comment L [Autom ated message] (test code = 70204-7) The sy stem which generated this result transmitted ref erence range: 3.80 - 5 .20 M/UL. The refer ence range was not u sed to interpret this result as normal/abnor mal. HEMOGLOBIN (test code = See_Comment [Au tomated message] 718-7) The system whic h generated this result transmitted ref erence range: 12.0 - 1 6.0 G/DL. The refer ence range was not u sed to interpret this result as normal/abnor mal. HEMATOCRIT (test code = 33.7 % 35-46 L 05518-5) MEAN CORPUSCULAR VOLUME 103.1 fL 80-99 H (test code = 85300-8) MEAN CORPUSCULAR 37.0 PG 25-34 H HEMOGLOBIN (test code = 86213-6) MEAN CORPUSCULAR See_Comment [Automated message] HEMOGLOBIN CONC (test The sy stem which code = 38877-3) generated th is result transmitted ref erence range: 31.0 - 3 6.0 G/DL. The refer ence range was not u sed to interpret this result as normal/abnor mal. RED CELL DISTRIBUTION 13.8 % 11.5-15 WIDTH (test code = 71553-6) NEUTROPHILS % (test code 53.4 % 40-75 = 86901-1) LYMPHOCYTES % (test code 38.2 % 20-45 = 73533-3) MONOCYTES % (test code = 5.7 % 4-12 17097-3) EOSINOPHILS % (test code 1.6 % 0-7 = 43565-6) BASOPHILS % (test code = 1.1 % 0-2 53445-3) PLATELET COUNT (test See_Comment Unless Otherwise code = 74005-8) Indicated, A ll Testing Perform ed At: [facility], [address] [place] [address] [facility] Director: Amelia Mcdermott M.D. CLIA Number [id number] Cap Accreditation N o. [id number] [Autom ated message] The sy stem which generated this result transmit rogelio reference range : 130 - 400 K/UL. The reference range was not used to int erpret this result as normal/abnormal . Lab Interpretation (test Abnormal code = 18360-1) [facility] METABOLIC [id number] 08:03:00 Test Item Value Reference Range Interpretation Comments GLUCOSE (test code = See_Comment [Autom ated message] The 2345-7) system which ge nerated this result tra nsmitted reference range : 70 - 99 MG/DL. The refe rence range was not u sed to interpret this result as normal/abnormal . BLOOD UREA NITROGEN See_Comment [Automa rogelio message] The (test code = 3091-6) system which generated this result tra nsmitted reference range : 8 - 23 MG/DL. The refe rence range was not u sed to interpret this result as normal/abnormal . CREATININE (test code = See_Comment [Au tomated message] The 2160-0) system which ge nerated this result tra nsmitted reference range : 0.60 - 1.30 MG/DL. The reference range was not used to interpr et this result as normal/abnormal . EGFR AA (test code = See_Comment [Autom ated message] The 31567-3) system which ge nerated this result tra nsmitted reference range : >60 ML/MIN/1.73. Th e reference range was not used to interpr et this result as normal/abnormal . EGFR (test code = See_Comment [Automate d message] The 56613-5) system which ge nerated this result tra nsmitted reference range : >60 ML/MIN/1.73. Th e reference range was not used to interpr et this result as normal/abnormal . SODIUM (test code = See_Comment [Automa rogelio message] The 2951-2) system which ge nerated this result tra nsmitted reference range : 133 - 146 MEQ/L. The reference range was not u sed to interpret this result as normal/abnormal . POTASSIUM (test code = See_Comment [Aut omated message] The 2823-3) system which ge nerated this result tra nsmitted reference range : 3.5 - 5.4 MEQ/L. The reference range was not u sed to interpret this result as normal/abnormal . CHLORIDE (test code = See_Comment [Auto mated message] The ) system which ge nerated this result tra nsmitted reference range : 95 - 107 MEQ/L. The reference range was not u sed to interpret this result as normal/abnormal . CO2 (test code = 1962-) See_Comment [A utomated message] The system which ge nerated this result tra nsmitted reference range : 19 - 31 MEQ/L. The refe rence range was not u sed to interpret this result as normal/abnormal . CALCIUM (test code = See_Comment Unless Otherwise 05075-9) Indicated, All Testing Performed At: [facility], [address] [place] [address] Director: Amelia Mcdermott M.D. [place] Number [id number] Cap Accreditation N o. [id number] [Autom ated message] The sy stem which generated this result transmit rogelio reference range : 8.5 - 10.5 MG/DL. The reference range was not used to interpr et this result as normal/abnormal . [facility] [id number] 18:22:00 Test Item Value Reference Range Interpretation Comments TOTAL PROTEIN 8.1 gm/dL 6.0-8.5 (BEAKER) (test code = 770) ALBUMIN (BEAKER) 4.7 g/dL 3.5-5.0 (test code = 1145) ALKALINE PHOSPHATASE 80 U/L 30-115 (BEAKER) (test code = 346) BILIRUBIN TOTAL 0.5 mg/dL 0.1-1.2 (BEAKER) (test code = 377) SODIUM (BEAKER) (test 137 meq/L 135-148 code = 381) POTASSIUM (BEAKER) 4.4 meq/L 3.6-5.5 (test code = 379) CHLORIDE (BEAKER) 100 meq/L 98-106 (test code = 382) CO2 (BEAKER) (test 29 meq/L 24-32 code = 355) BLOOD UREA NITROGEN 20 mg/dL 10-26 (BEAKER) (test code = 354) CREATININE (BEAKER) 0.64 mg/dL 0.50-1.20 (test code = 358) GLUCOSE RANDOM 81 mg/dL 70-110 (BEAKER) (test code = 652) CALCIUM (BEAKER) 10.0 mg/dL 8.5-10.5 (test code = 697) AST (SGOT) (BEAKER) 31 U/L 5-40 (test code = 353) ALT (SGPT) (BEAKER) 33 U/L 5-50 (test code = 347) EGFR (BEAKER) (test 92 mL/min/1.73 ESTIMA ROGELIO GFR IS code = 1092) sq m NOT ACCURATE CREATININE CLEARANCE IN PREDICTING GLOMERULAR FILTRATION RATE . ESTIMATED GFR I S NOT APPLICABLE FOR DIALYSIS PATIEN TS. CBC W/PLT COUNT & AUTO [id number] 17:56:00 Test Item Value Reference Range Interpretation Comments WHITE BLOOD CELL COUNT (BEAKER) 6.2 K/ L 4.0-10.0 (test code = 775) RED BLOOD CELL COUNT (BEAKER) 3.25 M/ L 4.00-5.00 L (test code = 761) HEMOGLOBIN (BEAKER) (test code = 12.1 GM/DL 12.0-15.0 410) HEMATOCRIT (BEAKER) (test code = 35.6 % 36.0-45.0 L 411) MEAN CORPUSCULAR VOLUME (BEAKER) 109.6 fL 82.0-99.0 H (test code = 753) MEAN CORPUSCULAR HEMOGLOBIN 37.1 pg 27.0-33.0 H (BEAKER) (test code = 751) MEAN CORPUSCULAR HEMOGLOBIN CONC 33.9 GM/DL 32.0-36.0 (BEAKER) (test code = 752) RED CELL DISTRIBUTION WIDTH 14.8 % 10.3-14.2 H (BEAKER) (test code = 412) PLATELET COUNT (BEAKER) (test 366 K/CU MM 150-430 code = 756) MEAN PLATELET VOLUME (BEAKER) 7.7 fL 6.5-10.5 (test code = 754) NEUTROPHILS RELATIVE PERCENT 58 % (BEAKER) (test code = 429) LYMPHOCYTES RELATIVE PERCENT 25 % (BEAKER) (test code = 430) MONOCYTES RELATIVE PERCENT 13 % (BEAKER) (test code = 431) EOSINOPHILS RELATIVE PERCENT 2 % (BEAKER) (test code = 432) BASOPHILS RELATIVE PERCENT 2 % (BEAKER) (test code = 437) NEUTROPHILS ABSOLUTE COUNT 3.57 K/ L 1.80-8.00 (BEAKER) (test code = 670) LYMPHOCYTES ABSOLUTE COUNT 1.53 K/ L 1.48-4.50 (BEAKER) (test code = 414) MONOCYTES ABSOLUTE COUNT (BEAKER) 0.82 K/ L 0.00-1.30 (test code = 415) EOSINOPHILS ABSOLUTE COUNT 0.13 K/ L 0.00-0.50 (BEAKER) (test code = 416) BASOPHILS ABSOLUTE COUNT (BEAKER) 0.10 K/ L 0.00-0.20 (test code = 417) Anisocytosis - 1+Hypochromia - 1+Poikilocytosis- 1+Ovalocytes - fewSchistocytes- fewPT/[id number] 17:45:00 Test Item Value Reference Range Interpretation Comments PROTIME (BEAKER) (test code = 10.2 seconds 9.8-12.0 759) INR (BEAKER) (test code = 370) 0.92 <=5.90 PARTIAL THROMBOPLASTIN TIME 23.5 seconds 25.8-34.5 L (BEAKER) (test code = 760) RECOMMENDED COUMADIN/WARFARIN INR THERAPY RANGESSTANDARD DOSE: 2.0 - 3.0 Includes: PROPHYLAXIS for venous thrombosis, systemic embolization; TREATMENT for venous thrombosis and/or pulmonary embolus.HIGH RISK: Target INR is 2.5-3.5 for patients with mechanical heart valves.SEDIMENTATION RATE MODIFIED WILLAREN 2020-03-07 18:40:04 Test Item Value Reference Range Interpretation Comments ERYTHROCYTE SEDIMENTATION See_Comment U nless Otherwise RATE (test code = 4537-7) In dicated, All Testing Performed At: C linical Pathology [facility], [address] [place] [address], [place], [place] [address] [place] [address] Director: Amelia Mcdermott M.D. CLIA Number [id number] Cap Accreditation N o. [id number] [Autom ated message] The sy stem which generated this result transmit rogelio reference range : 0 - 20 MM/HOUR. The re ference range was not u sed to interpret this result as normal/abnor mal. [facility] [id number] 09:22:18 Test Item Value Reference Range Interpretation Comments C-REACTIVE PROTEIN (test See_Comment H Un less Otherwise code = 1988-5) Indicated, Himanshu l Testing Perform ed At: [facility], [address] [facility] [place] [address] Laborator y Director: Amelia Mcdermott M.D. CLIA Number [id number] Cap Accreditation N o. [id number] [Autom ated message] The sy stem which generated this result transmit rogelio reference range : <0.5 MG/DL. The refe rence range was not u sed to interpret this result as normal/abnor mal. Lab Interpretation (test Abnormal code = 95379-4) [facility] [id number] 09:20:13 Test Item Value Reference Range Interpretation Comments GLUCOSE (test code = See_Comment [Autom ated message] The 2345-7) system which ge nerated this result tra nsmitted reference range : 70 - 99 MG/DL. The refe rence range was not u sed to interpret this result as normal/abnormal . BLOOD UREA NITROGEN See_Comment [Automa rogelio message] The (test code = 3091-6) system which generated this result tra nsmitted reference range : 8 - 23 MG/DL. The refe rence range was not u sed to interpret this result as normal/abnormal . CREATININE (test code = See_Comment [Au tomated message] The 2160-0) system which ge nerated this result tra nsmitted reference range : 0.60 - 1.30 MG/DL. The reference range was not used to interpr et this result as normal/abnormal . EGFR AA (test code = See_Comment [Autom ated message] The 65943-7) system which ge nerated this result tra nsmitted reference range : >60 ML/MIN/1.73. Th e reference range was not used to interpr et this result as normal/abnormal . EGFR (test code = See_Comment [Automate d message] The 79199-4) system which ge nerated this result tra nsmitted reference range : >60 ML/MIN/1.73. Th e reference range was not used to interpr et this result as normal/abnormal . BUN/CREAT RATIO (test See_Comment [Auto mated message] The code = 3097-3) system which generated this result tra nsmitted reference range : 6 - 28 RATIO. The refe rence range was not u sed to interpret this result as normal/abnormal . SODIUM (test code = See_Comment [Automa rogelio message] The 2951-2) system which ge nerated this result tra nsmitted reference range : 133 - 146 MEQ/L. The reference range was not u sed to interpret this result as normal/abnormal . POTASSIUM (test code = See_Comment [Aut omated message] The 2823-3) system which ge nerated this result tra nsmitted reference range : 3.5 - 5.4 MEQ/L. The reference range was not u sed to interpret this result as normal/abnormal . CHLORIDE (test code = See_Comment [Auto mated message] The ) system which ge nerated this result tra nsmitted reference range : 95 - 107 MEQ/L. The reference range was not u sed to interpret this result as normal/abnormal . CO2 (test code = See_Comment [Automated message] The 1962-12) system which ge nerated this result tra nsmitted reference range : 19 - 31 MEQ/L. The refe rence range was not u sed to interpret this result as normal/abnormal . CALCIUM (test code = See_Comment [Autom ated message] The 82008-1) system which ge nerated this result tra nsmitted reference range : 8.5 - 10.5 MG/DL. The reference range was not used to interpr et this result as normal/abnormal . PROTEIN TOTAL (test See_Comment [Automa rogelio message] The code = 2885-2) system which generated this result tra nsmitted reference range : 6.1 - 8.3 G/DL. The r eference range was not u sed to interpret this result as normal/abnormal . ALBUMIN (test code = See_Comment [Autom ated message] The 87095-2) system which ge nerated this result tra nsmitted reference range : 3.5 - 5.2 G/DL. The r eference range was not u sed to interpret this result as normal/abnormal . GLOBULINS, SERUM, TOTAL See_Comment [Au tomated message] The (test code = 18808-3) system which generated this result tra nsmitted reference range : 1.9 - 3.7 G/DL. The r eference range was not u sed to interpret this result as normal/abnormal . A/G RATIO (test code = See_Comment [Aut omated message] The ) system which ge nerated this result tra nsmitted reference range : 1.0 - 2.6 RATIO. The reference range was not u sed to interpret this result as normal/abnormal . BILIRUBIN TOTAL (test See_Comment [Auto mated message] The code = 1974-2) system which generated this result tra nsmitted reference range : <=1.2 MG/DL. The refe rence range was not u sed to interpret this result as normal/abnormal . ALKALINE PHOSPHATASE 75 U/L 40-142 (test code = 6768-6) AST (SGOT) (test code = 21 U/L 9-40 1920-8) ALT (SGPT) (test code = 25 U/L 5-40 Unl ess Otherwise 1744-2) Indicated, All Testing Performed At: [facility] [address] Director: Amelia Mcdermott M.D. CLIA Number [id number] Cap Accreditation N o. [id number] [facility] W/AUTO DIFF WITH [id number] 08:21:18 Test Item Value Reference Range Interpretation Comments WHITE BLOOD CELL COUNT See_Comment [Aut omated message] (test code = 41749-1) The sy stem which generated this result transmitted ref erence range: 3.5 - 10 .0 K/UL. The refer ence range was not u sed to interpret this result as normal/abnor mal. RED BLOOD CELL COUNT See_Comment L [Autom ated message] (test code = 36483-2) The sy stem which generated this result transmitted ref erence range: 3.80 - 5 .20 M/UL. The refer ence range was not u sed to interpret this result as normal/abnor mal. HEMOGLOBIN (test code = See_Comment [Au tomated message] 718-7) The system whic h generated this result transmitted ref erence range: 12.0 - 1 6.0 G/DL. The refer ence range was not u sed to interpret this result as normal/abnor mal. HEMATOCRIT (test code = 34.4 % 35-46 L 24750-1) MEAN CORPUSCULAR VOLUME 104.2 fL 80-99 H (test code = 80287-9) MEAN CORPUSCULAR 37.0 PG 25-34 H HEMOGLOBIN (test code = 06939-8) MEAN CORPUSCULAR See_Comment [Automated message] HEMOGLOBIN CONC (test The sy stem which code = 03118-4) generated th is result transmitted ref erence range: 31.0 - 3 6.0 G/DL. The refer ence range was not u sed to interpret this result as normal/abnor mal. RED CELL DISTRIBUTION 13.9 % 11.5-15 WIDTH (test code = 58735-8) NEUTROPHILS % (test code 56.1 % 40-75 = 36078-5) LYMPHOCYTES % (test code 33.0 % 20-45 = 67838-0) MONOCYTES % (test code = 8.5 % 4-12 36367-4) EOSINOPHILS % (test code 1.1 % 0-7 = 96844-2) BASOPHILS % (test code = 1.3 % 0-2 46269-8) PLATELET COUNT (test See_Comment Unles s Otherwise code = 04085-9) Indicated, A ll Testing Perform ed At: [facility], [address] [place] [address] [address] Director: Amelia Mcdermott M.D. CLIA Number [id number] Cap Accreditation N o. 31298-07 [Autom ated message] The sy stem which generated this result transmit rogelio reference range : 130 - 400 K/UL. The reference range was not used to int erpret this result as normal/abnormal . Lab Interpretation (test Abnormal code = 34744-1) [facility] [id number] 16:10:00 Test Item Value Reference Range Interpretation Comments GLUCOSE (test code = 84 mg/dL 65-99 99501-2) BLOOD UREA NITROGEN 17 mg/dL 8-27 (test code = 72141-4) CREATININE (test code 0.68 mg/dL 0.57-1 = 88301-3) EGFR(C)NONAFR[place]NAM 89 mL/min/1.73 >59 (test code = 33257-8) EGFR(C)AFRICANAMER 102 mL/min/1.73 >59 (test code = 45738-7) BUN/CREAT RATIO (test 05-20 code = 6299-2) SODIUM (test code = 138 mmol/L 134-144 07580-6) POTASSIUM (test code 4.4 mmol/L 3.5-5.2 = 6298-4) CHLORIDE (test code = 94 mmol/L 96-106 L 2068-) CO2 (test code = 26 mmol/L 20-29 2027-9) CALCIUM (test code = 10.2 mg/dL 8.7-10.3 41737-9) PROTEIN TOTAL (test 7.4 g/dL 6-8.5 code = 2885-2) ALBUMIN (test code = 4.7 g/dL 3.8-4.8 1-7) GLOBULINS, SERUM, 2.7 g/dL 1.5-4.5 TOTAL (test code = 47159-9) A/G RATIO (test code 1.2-2.2 = 1759-0) BILIRUBIN TOTAL (test 0.4 mg/dL 0-1.2 code = 1974-2) ALKALINE PHOSPHATASE See_Comment [Autom ated (test code = 6768-6) message ] The system which generated this result transmitted reference range : 39 - 117 IU/L. The reference range was not used to interpr et this result as normal/abnormal . AST (SGOT) (test code See_Comment [Auto mated = 1920-8) message] The system which generated this result transmitted reference range : 0 - 40 IU/L. Th e reference range was not used to interpret this result as normal/abnormal . ALT (SGPT) (test code See_Comment [Auto mated = 1742-6) message] The system which generated this result transmitted reference range : 0 - 32 IU/L. Th e reference range was not used to interpret this result as normal/abnormal . DELFIN (test code = DELFIN) Performed at: [facility] [id number] Director: Richie Multani MD, Phone: [phone] Lab Interpretation Abnormal (test code = 75487-7) [facility] [id number] 16:10:00 Test Item Value Reference Range Interpretation Comments CHOLESTEROL (test 335 mg/dL 100-199 H code = 2093-3) TRIGLYCERIDES (test 191 mg/dL 0-149 H code = 2571-8) HDL (test code = 60 mg/dL >39 5-9) VLDL CHOLESTEROL 37 mg/dL 5-40 CALC (test code = 12) LDL CHOLESTEROL 238 mg/dL 0-99 H CALCULATED (test code = 2088-1) COMMENT (test code = Comment Possibl e Familial 2940) Hypercholestero lemi a. FH should be suspected whenfasting LDL cholesterol is above 189 mg/dL or non-HDL cholesterolis a steven 219 mg/dL. A fa jordan history of high cholesterol and heartdisease in 1st degree relative s should be collected. J Cl in Llntjiz5047;5:1 33-1 40 DELFIN (test code = Performed at: DELFIN) - [facility] [address] [id number] Director: Richie Multani MD, Phone: [phone] Lab Interpretation Abnormal (test code = 31193-0) [facility] [id number] 16:10:00 Test Item Value Reference Range Interpretation Comments HEMOGLOBIN A1C 5.6 % 4.8-5.6 Prediabetes: (test code = 5.7 - 6.4 4548-4) Diabetes: >6.4 Glycemic contro l for adults with diabetes: <7.0 DELFIN (test code = Performed at: DELFIN) [facility] [address] [id number] Director: Richie Multani MD, Phone: [phone] [facility]/AUTO DIFF WITH [id number] 16:10:00 Test Item Value Reference Range Interpretation Comments WHITE BLOOD CELL See_Comment [Automated COUNT (test code = message] The 6690-2) system which generated this result transmitted reference range : 3.4 - 10.8 x10E3/uL. The reference range was not used to interpret this result as normal/abnormal . RED BLOOD CELL COUNT See_Comment L [Autom ated (test code = 79555-5) messag e] The system which generated this result transmitted reference range : 3.77 - 5.28 x10E6/uL. The reference range was not used to interpret this result as normal/abnormal . HEMOGLOBIN (test code 12.1 g/dL 11.1-15.9 = 24276-1) HEMATOCRIT (test code 34.5 % 34-46.6 = 53857-1) MEAN CORPUSCULAR 104 fL 79-97 H VOLUME (test code = 787-2) MEAN CORPUSCULAR 36.3 pg 26.6-33 H HEMOGLOBIN (test code = 785-6) MEAN CORPUSCULAR 35.1 g/dL 31.5-35.7 HEMOGLOBIN CONC (test code = 786-4) RED CELL DISTRIBUTION 14.0 % 11.7-15.4 WIDTH (test code = 788-0) PLATELET COUNT (test See_Comment [Autom ated code = 777-3) message] The system which generated this result transmitted reference range : 150 - 450 x10E3/uL. The reference range was not used to interpret this result as normal/abnormal . NEUTROPHILS % (test 61 % Not Estab. code = 770-8) LYMPHOCYTES % (test 29 % Not Estab. code = 736-9) MONOCYTES % (test 7 % Not Estab. code = 5905-5) EOSINOPHILS % (test 2 % Not Estab. code = 713-8) BASOPHILS % (test 1 % Not Estab. code = 706-2) NEUTROPHILS ABSOLUTE See_Comment [Autom ated COUNT (test code = message] The 751-8) system which generated this result transmitted reference range : 1.4 - 7.0 x10E3/uL. The reference range was not used to interpret this result as normal/abnormal . LYMPHOCYTES ABSOLUTE See_Comment [Autom ated COUNT (test code = message] The 731-0) system which generated this result transmitted reference range : 0.7 - 3.1 x10E3/uL. The reference range was not used to interpret this result as normal/abnormal . MONOCYTES ABSOLUTE See_Comment [Automat ed COUNT (test code = message] The 742-7) system which generated this result transmitted reference range : 0.1 - 0.9 x10E3/uL. The reference range was not used to interpret this result as normal/abnormal . EOSINOPHILS ABSOLUTE See_Comment [Autom ated COUNT (test code = message] The 711-2) system which generated this result transmitted reference range : 0.0 - 0.4 x10E3/uL. The reference range was not used to interpret this result as normal/abnormal . BASOPHILS ABSOLUTE See_Comment [Automat ed COUNT (test code = message] The 704-7) system which generated this result transmitted reference range : 0.0 - 0.2 x10E3/uL. The reference range was not used to interpret this result as normal/abnormal . IMMATURE GRANULOCYTES 0 % Not Estab. (test code = 74314-0) IMMATURE GRANS (ABS) See_Comment [Autom ated (test code = 9987) message] The system which generated this result transmitted reference range : 0.0 - 0.1 x10E3/uL. The reference range was not used to interpret this result as normal/abnormal . DELFIN (test code = DELFIN) Performed at: [facility] [id number] Director: Richie Multani MD, Phone: [phone] Lab Interpretation Abnormal (test code = 98984-0) [facility] [id number] 00:00:00 Test Item Value Reference Range Interpretation Comments COLOR UA (test code = 5778-6) Yellow YELLOW/STRAW CLARITY UA (test code = 28386-9) Clear CLEAR GLUCOSE UA (test code = 5792-7) Negative NEGATIVE BILIRUBIN UA (test code = 5770-3) Negative NEGATIVE KETONES UA (test code = 35150-6) Negative NEGATIVE SPECIFIC GRAVITY UA (test code = 1.005-1.035 5811-5) BLOOD UA (test code = 5794-3) Negative NEGATIVE PH UA (test code = 5803-2) 5-9 PROTEIN UA (test code = 5804-0) Negative NEGATIVE UROBILINOGEN UA (test code = 0.2 E.U./dL NORMAL MG/DL 5818-0) LEUKOCYTE ESTERASE UA (test code Negative NEGATIVE = 5799-2) NITRITE UA (test code = 5802-4) Negative NEGATIVE REDUCING SUBSTANCES URINE (test code = 09466-8) [facility] CampusEMG [id number] 16:00:00Manuela Engle MD 11/15/2019 11:59 AMElectrodiagnostic Study DataDepartment of Physical Medicine and Rehabilitation [facility] Test Date: 11/15/2019 Patient: Sarmad Mcleod : 1950 Physician: Manuela Engle Sex: Female Height: 5' 3" Ref Phys: Josie Wood MD ID#: [id number] Weight: lbs. Conference Concierge: Patient History & Exam: See history and physical progress note. NCV & EMG Findings: Please see full report for wasveforms, graphs and tablesEvaluation of the left median motor nerve showed normal distal onset latency (3.6 ms), normal amplitude (7.4 mV), and normal conduction velocity (Elbow-Wrist, 55 m/s). The left ulnar motor nerve showed normal distal onset latency (2.4 ms), normal amplitude (8.0 mV), normal conduction velocity (B Elbow-Wrist, 57 m/s),and normal conduction velocity (A Elbow-B Elbow, 53 m/s). The left Median (3rd) sensory nerve showednormal distal peak latency (3.2 ms) and normal amplitude (65.6 ?V). The left ulnar sensory nerve showed normal distal peak latency (3.5 ms) and normal amplitude (72.9 ?V). All examined muscles (as indicated in the following table) showed no evidence of electrical instability. Impression:1. This is a normal study.2. There is no electrodiagnostic evidence of a left median or ulnar mononeuropathy in areas tested.3. There is no electrodiagnostic evidence of a polyneuropathy in the left upper limb.4. There is no electrodiagnostic evidence of a left cervical radiculopathy. PAVEL [place]. Naeem Bustamante [facility] Diplomate, [place] Board of Electrodiagnostic MedicineNOVEL 2019 CORONAVIRUS(COVID-19) ANTIBODY, IGG 2019-10-31 12:08:00 Test Item Value Reference Range Interpretation Comments SARS-COV-2 Negative Negative This sample cortés s not ANTIBODY,IGG contain detecta ble (test code = SARS-CoV-2 IgG 01653) antibodies.This negative result does not rule out SARS-CoV-2 infection.Corre latio n with epidemio logic risk factors an d other clinical andlaboratory findings is recommended. Serologic resul ts should not beus ed as the sole basis to diagnose or exc lude recent DAIB-VmJ-2zpeot tion. This assay was performed using the X[employer]g SARS-CoV -2 IgG assay. DELFIN (test Test(s) code = DELFIN) 569655-PXXE-NyP-5 Antibody, IgGhas not been FDA cleared or approved. This test hasbeen authorized by FDA under an Emergency Use Authorization(EUA). This test is only authorized for the duration of thedeclaration that circumstances exist justifying the authorizationof emergency use of in vitro diagnostics for detection and/ordiagnosis of COVID-19 under Section 564(b)(1) of the Act, 21U.S.C. 360bbb-3(b)(1), unless the authorization is terminated orrevoked sooner. This test has been authorized only for detectingthe presence of antibodies against SARS-CoV-2, not for any otherviruses or pathogens.Performed at: [facility] [place], [place] [id number] Director: Richie Multani MD, Phone: [phone] [facility]
[2022-08-13] MEDS: CEFAZOLIN 1 GM in NA CHLORIDE 0.9% 50 ML IVPB SCH (17:09)
[2022-08-13] MEDS: Ringers Lactate 1,000 ML IV SCH ×2 (17:10→23:00)
[2022-08-13 18:00] VITALS: BMI 27.9
[2022-08-13] MEDS ORDERED: cloNIDine HCL 0.1 MG TAB PO SCH (21:00)
[2022-08-14] MEDS: CEFAZOLIN 1 GM in NA CHLORIDE 0.9% 50 ML IVPB SCH ×2 (00:53→09:09)
[2022-08-14] MEDS: Ringers Lactate 1,000 ML IV SCH (04:01)
[2022-08-14 07:01] LABS: Absolute Lymphocytes (CBC) 1.6 K/uL (0.7-4.9); Lymphocytes % 16.8 % (15.3-44.8); MCV 110.4 fL (80-100); MPV 7.9 fL (7.6-11.3); RBC Red Blood Cell Count 3.08 M/uL (3.86-4.86)
[2022-08-14 07:14] LABS: Potassium 3.4 mEq/L (3.5-5.1)
[2022-08-14] MEDS ORDERED: CAYENNE PO SCH (09:00)
[2022-08-14] MEDS ORDERED: FUROSEMIDE 20 MG TABLET PO SCH (09:00)
[2022-08-14] MEDS ORDERED: HOME MED 1 EA UNK (Estradiol [Estradiol] 42.5 GM Cream.Appl) VG SCH (09:00)
[2022-08-14] MEDS ORDERED: MAGNESIUM OXIDE 400 MG TAB PO SCH (09:00)
[2022-08-14] MEDS ORDERED: HOME MED 1 EA UNK (Potassium Gluconate [Potassium] 600 MG Tablet) PO SCH (09:00)
[2022-08-14] MEDS ORDERED: VITAMIN B COMPLEX 1 CAP PO SCH (09:00)
[2022-08-14] MEDS ORDERED: AZATHIOPRINE 50 MG TABLET PO SCH (09:00)
[2022-08-14] MEDS ORDERED: GRAPE SEED EXTRACT PO SCH (09:00)
[2022-08-14] MEDS ORDERED: HAWTHORN BERRY 565 MG PO SCH (09:00)
[2022-08-14] MEDS ORDERED: ZINC AMINO ACID CHELATE PO SCH (09:00)
[2022-08-14] MEDS ORDERED: ALFALFA PO SCH (09:00)
[2022-08-14] MEDS ORDERED: GINGER ROOT 550 MG PO SCH (09:00)
[2022-08-14] MEDS ORDERED: hydroCHLOROthiazide 25 MG TAB PO SCH (09:00)
[2022-08-14] MEDS ORDERED: HOME MED 1 EA UNK (L.Acidoph,Paracasei, B.Lactis [Probiotic] Capsule) PO SCH (09:00)
[2022-08-14] MEDS ORDERED: HOME MED 1 EA UNK (Turmeric [Turmeric] 400 MG Capsule) PO SCH (09:00)
[2022-08-14] MEDS ORDERED: COENZYME Q10- 200 MG CAP PO SCH (09:00)
[2022-08-14] MEDS ORDERED: HOME MED 1 EA UNK (Cider Vinegar [Apple Cider Vinegar] 300 MG Tablet) PO SCH (09:00)
[2022-08-14] MEDS ORDERED: ASCORBIC ACID 500 MG TABLET PO SCH (09:00)
[2022-08-14] MEDS ORDERED: [UNRECOGNIZED DRUG - MIXTURE] PO SCH (09:00)
[2022-08-14] MEDS ORDERED: BIOTIN 5000 MCG PO SCH (09:00)
[2022-08-14] MEDS ORDERED: SENOSIDES 8.6 MG TAB PO SCH (09:00)
[2022-08-14] MEDS ORDERED: CHOLECALCIFEROL 250 MCG PO SCH (09:00)
[2022-08-14] MEDS ORDERED: VALSARTAN 160 MG TAB PO SCH (09:00)
[2022-08-14] MEDS ORDERED: SELENIUM 200 MCG PO SCH (09:00)
[2022-08-14 11:40] VITALS: O2SAT 97
[2022-08-14 11:55] VITALS: BP 153/63; TEMP 98.6
[2022-08-14] MEDS ORDERED: NIFEDIPINE XL 30 MG TABLET PO SCH (12:00)
--- NOTE | 2022-08-17 11:54 | OP ---
Date of Procedure: 08/13/2022 Surgeon: Hattie Asher MD [employer] Tr[employer]: Alyssa Nunez. Preoperative Diagnoses: Recurrent pelvic organ prolapse with stress urinary incontinence. Postoperative Diagnoses: Stage III anterior wall apical enterocele, vaginal wall prolapse, pelvic st age II. 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 Procedures Performed: 1.Bilateral sacrospinous ligament fixation, colpopexy for wall prolapse anterior wall repair with bi ologic graft augmentation for the anterior wall stage III prolapse, then apical enterocele repair, an d perineal body defect repair as a separate incision. 2.Transobturator midurethral sling (TVT-O) cystoscopy. Estimated Blood Loss: 100. Specimens: No specimens. Complications: No complications. Drains: Caruso catheter. Anesthesia: General endotracheal. Findings: Pop-Q +1, +4, 0, 6.5 thin, 8, -3, -3, NA. Cystoscopy was negative. Both ureteric orifice s had strong jets of urine. No foreign body or trauma to the bladder. Implants: Culdoplasty by 12 graft fashion to 9 x 6 x 5 and TVT-O. There was no need to t he patient after the sling was placed as there was good continence. Urine Output: 500. Fluids: LR 1500. Disposition: Transferred to the recovery room in stable condition. Indications: The patient is a 72-year-old female who presented with recurrent vaginal wall prolapse. Prior repair done vaginally without any graft augmentation. 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 After medical clearance and full evaluation with urodynamics and cystoscopy, the patient was brought to the operating room as she wanted to have surgical repair of her prolapse and declined management p essary. Pelvic floor rehab had to be done for this patient. A vaginal estrogen therapy was started. She was consented for a vaginal repair using a biologic graft augmentation in the anterior and apic al compartments. It is very clear that this was what was dropped. The posterior compartment appeare d to be intact. Description Of Procedure: After informed consent was re-verified, she was taken back to the operatin g room significant questioning and answering session, significant time was spent on doing a question and answer session with the and the patient herself . She has been in a supine position on operating table. General anesthesia was given. She was placed in a dorsal lithotomy position using Nathen stirrups. Vulva, vagina, and perineum and lower part of t he abdomen were prepped and draped in a standard sterile fashion. Betadine prep was used. A Caruso placed to drain the bladder. POP-Qs as above. Her genital hiatus was significantly widened 6.5 cm likely from her rectum prolapse also. Her perineal body defect was significant and gaping and . Despite the absence of the distal perineal defect, I needed to repair the perineal body . Started with anterior vaginal wall incision after identifying the UVJ and the vaginal wall was suture d with the help of 3-0 Vicryl sutures x3, one on the center and one on either sides. Then, the anter ior vaginal wall was injected with dilute vasopressin 40 units and 100 cc of normal saline was used. 20 cc of the solution was injected here with a 27-gauge needle. After making a midline skin incision with a 15 blade up proximally and distally in the mid line was carried with Metzenbaum scissors, dissecting plane the fascia whatever was presen t left of the connective tissue epithelium, sub epithelium, and connective tissue from the underlying vesicovaginal space. Once this was created and taken to the lateral to the UVJ, dissecte d properly all the way and into the vaginal wall. vaginal wall, there was significant api kay enterocele was dissected. It was closed with the help of the 3-0 Monocryl pursestring suture. Then went onto the paravaginal space on either side, was clipped and it was palpated and this was swe pt medially and posteriorly to clear it and I swept the bowel medially, laterally and dissection was carried to the white line superior and lateral to the ischial spine. Once the dissection was perform ed on both sides, Capio device was taken and Prolene sutures were placed on the sacrospinous ligament 2 cm medial to the ischial spine on each side and the PDS sutures 0.5 cm, 1 to 1.5 cm lateral to the ischial spine on the white line of [place]. John retractor was used and these were all h eld on retractors. Then, sutures x3 in the proximal and distal wall were placed in the ce nter to attach the graft 2-0 PDS was used, three sutures vaginal apex. The enterocele was reduced and then 3 under the urethra on the left ureter connective tissue. The graft was fashioned to 9 x 6 x 5. The graft was with packed according to the package instruction. The proximal and distal central wall attachments were attached to the graft and tied down and lateral ly, the sacrospinous suture was placed the flower stitch on the graft and the PDS sutures was placed, 3 cm distal to the proximal margin laterally in the trapezoid that was fashioned. So, sa crospinous sutures were tied down at the level of the ligament without a bridge on both sides. Then, the PDS sutures were tied down. Attempt was made to the attach the distal wall to the distal white line patient's size was small and there was not enough space for me to dissect the ___ the ureter and so went ahead and laterally dissected the fascia further and attached the graft to underlying tissues with 3-0 Vicryl suture. The anterior vaginal epithelium was trimmed and closed in a continuous running horizontal mattress 2- 0 Vicryl suture to the vagina. The mid urethral area was picked up with 2 Allis clamps dissected to below the underlying connective tissue. A 1.5 cm incision was made and the channels were made towards the ipsilateral obturator spac e after perforating . Similar dissection performed on both sides satisfactorily. __ past the inferior pubic ramus exited 2 cm lateral to the groin fold and on the external meatus opening the adductor longus tendon. Skin incision was made with a stab incision. The dilato r pulled out through the sheath and graft held similar pass was taken opposite side tensio n on the urethra with the help of Metzenbaum scissors. The plastic sheaths were pulled out and the m esh trimmed flushed the skin. Skin closed with Dermabond. After irrigation, was done. Abdomen was closed with the help of 3-0 Vicryl in a continuou s running horizontal mattress fashion. Caruso was removed, cystoscopy was performed. There were exce llent urinary jets from both ureteric orifices. No evidence of any trauma or foreign body. __ was completely coapted and no evidence of any leakage, so decided not to perform any bulking mid u rethral area or trauma. Scope pulled out. Caruso replaced. A triangular skin incision was made from either sides of the remnants of distal perineal sk in point inferiorly. Once this incision was made, edges marked out after injecting dilute vasopressi n 20 cc. Then, the underlying connective tissue was dissected all the way laterally to identify the lateral and once these were freshened up, the distal posterior wall was exposed by dissect ing superiorly and that was laid open as well as the perineal body structures. 2-0 Vicryl was used in a continuous running fashion in 2 layers to bring the perineal body structures together and external anal sphincter from [id number] and closed the subcutaneous tissues with anot her series of interrupted 2-0 Vicryl sutures to take the tension off and the repair was tension-free. The vaginal epithelium closed with the help of 3-0 Vicryl in a subcutaneous and subcuticular fashio n. Rectal exam negative. No trauma or foreign body in the rectum. The patient was packed with vagi nal gauze, the Caruso left in place. She recovered from anesthesia in the PACU in stable condition. Her was debriefed on her procedure. and discharge and followup in one month. Bactrim DS 1 p .o. b.i.d. for prophylaxis was restarted a week postop. All precautions given to patient to infection and improve proper healing. KINDRA Voice ID: [id number] Report ID: [id number]
== END 2022-08-14 13:46 | disposition home or self-care (01) ==
LOC: OR 08:58 → 2ND 15:15
PROVIDERS: ADMIT Obstetrics & Gynecology; ATTEND Obstetrics & Gynecology
PROC: 0USG0ZZ Reposition Vagina, Open Approach (ICD-10-PCS; 2022-08-13)
PROC: 0JQC0ZZ Repair Pelvic Region Subcutaneous Tissue and Fascia, Open Approach (ICD-10-PCS; 2022-08-13)
PROC: 0UUF0JZ Supplement Cul-de-sac with Synthetic Substitute, Open Approach (ICD-10-PCS; 2022-08-13)
PROC: 0TSD0ZZ Reposition Urethra, Open Approach (ICD-10-PCS; principal; 2022-08-13 10:30)
DX: N81.3 Complete uterovaginal prolapse (principal); N39.3 Stress incontinence (female) (male); I10 Essential (primary) hypertension; H20.9 Unspecified iridocyclitis; M35.2 Behcet's disease; I47.20 Ventricular tachycardia, unspecified
CPT/HCPCS: 93005; 85025 ×2; 81001; 80048 ×2; 36415 ×2; 86900; 86850; 85610; 86901; 85730; 87811; 57288; 57282; 57250; J2704; J2001; J2250; J3010 ×3; J1100; J2405 ×4; G0378 ×4; J7120 ×4; J0690 ×4; J2550; J7500